=== PATIENT | female | born 1970 ===

== ENCOUNTER 2023-01-21 16:56 | Observation (INO) | payer MEDICARE, MEDICAID, SELFPAY ==
--- NOTE | ~2023-01-21 | CT_ITS ---
EXAMINATION: CT HEAD WITHOUT CONTRAST CLINICAL INFORMATION: Mental status change COMPARISON: CT head 12/08/2012 TECHNIQUE: Contiguous axial imaging was performed from the skull base to vertex without intravenous administration of contrast. This CT examination was performed using dose optimization techniques as appropriate, variously including the following: *Automated exposure control *Adjustment of mA and/or kV according to patient size (this includes techniques or standardized protocols for targeted exams where dose is matched to indication/reason for exam; i.e. extremities or head) *Use of iterative reconstruction technique DLP: 706 mGy-cm FINDINGS: There is scaphocephalic configuration of the skull again seen. Redemonstration of Chiari malformation, as previously detailed. No change in ventricular dimensions is seen, and bilateral COUNCILOR shunts are unchanged in positions. No acute intracranial abnormality. No acute mass, hemorrhage, infarction or extra-axial collection is seen. There are extensive dural calcifications. Mild sinus mucosal thickening in the ethmoid sinuses. Mastoid air cells and middle ear cavities are normally aerated. CT/CT head/brain wo IV con IMPRESSION: No acute intracranial abnormality. Bilateral ventricular shunt catheters are unchanged in positions. No new hydrocephalus.
--- NOTE | ~2023-01-21 | CT_ITS ---
EXAMINATION: CT ABDOMEN AND PELVIS WITHOUT CONTRAST CLINICAL INFORMATION: Large, significantly tender ventral hernia. COMPARISON: None available. TECHNIQUE: Multidetector volumetric imaging was performed from the superior aspect of the liver through the pubic symphysis. Sagittal and coronal reformatted images were obtained on the technologist workstation. This CT examination was performed using dose optimization techniques as appropriate, variously including the following: *Automated exposure control *Adjustment of mA and/or kV according to patient size (this includes techniques or standardized protocols for targeted exams where dose is matched to indication/reason for exam; i.e. extremities or head) *Use of iterative reconstruction technique DLP: 702.79 mGy-cm. FINDINGS: LUNG BASES: The visualized lung bases are unremarkable. LIVER, GALLBLADDER, AND BILIARY TREE: The liver is normal in size, shape, and attenuation. No focal hepatic lesion on noncontrast imaging. No biliary ductal dilatation is present. The gallbladder is surgically absent. No focal collection in the gallbladder fossa. PANCREAS: Unremarkable on noncontrast imaging. SPLEEN: Unremarkable. ADRENAL GLANDS: Unremarkable on noncontrast imaging. KIDNEYS AND URETERS: The kidneys are normal in size, shape, and attenuation. There is a nonobstructing 0.3 cm upper pole right renal calcification with mean attenuation values of 197 Hounsfield units. No hydronephrosis or hydroureter seen. No perinephric stranding. BLADDER: Unremarkable. PELVIC VISCERA: Unremarkable. GASTROINTESTINAL TRACT: The small and large bowel are unremarkable. The appendix is unremarkable. ABDOMINAL WALL: There is a tiny fat-containing umbilical hernia. No significant inflammatory changes are seen in the anterior abdominal wall. Two paramedian abdominal wall catheters are in place extending from the lower chest down into the abdomen with the left-sided catheter entering the anterior abdominal wall at approximately 6 cm above the umbilicus and terminating shortly thereafter in the anterior mid abdomen omental region and the right-sided catheter entering the abdominal wall approximately 11 cm above the umbilicus and extending inferiorly and laterally into the left flank. No inflammatory changes are seen associated with the catheters. No free fluid is noted in the abdomen. LYMPH NODES, VASCULAR: No abdominal or pelvic adenopathy. The abdominal aorta is normal in caliber. No periaortic collections. No significant atherosclerotic calcifications. OSSEOUS STRUCTURES: Mild facet arthropathy in the mid and lower lumbar spine. Minimal vertebral spondylosis in lower thoracic spine and lower lumbar spine. CT/CT abdomen pelvis wo IV con IMPRESSION: 1. No significant inflammatory changes are seen in the anterior abdominal wall. No significant ventral hernia is seen. There is a tiny fat-containing umbilical hernia, which appears unremarkable. 2. Two paramedian abdominal wall catheters are in place as discussed above, extending into the peritoneal cavity. 3. Status post cholecystectomy with no focal collection in the gallbladder fossa. 4. Nonobstructing upper pole right renal calcification.
--- NOTE | 2023-01-21 17:06 | ECG_ITS ---
Test Reason : FALL Blood Pressure : / mmHG Vent. Rate : 083 BPM Atrial Rate : 083 BPM P-R Int : 174 ms QRS Dur : 078 ms QT Int : 372 ms P-R-T Axes : 043 -07 007 degrees QTc Int : 437 ms Normal sinus rhythm Normal ECG When compared with ECG of 05-NOV-2010 10:47, No significant change was found Referred By: Oralia Salgado Electronically Signed By:BETTY ALVAREZ MD
[2023-01-21 17:08] VITALS: BP 127/80; BP 155/90; PULSE 82; PULSE 87; RESP 16; TEMP 36.6; O2SAT 98; BMI 34.4
--- NOTE | 2023-01-21 17:22 | PC.NURSE ---
ED provider to bedside for re-evaluation as pt's caregivers are currently at bedside. Per primary caregiver (new to patient within the last month), the pt has been excessively tired over the past few weeks and also had 3 mini seizures last night.
--- NOTE | 2023-01-21 17:28 | ED.GENADULT ---
HPI - General Adult General Chief complaint: Fall Stated complaint: Psedoseizure Time Seen by Provider: 01/21/23 17:06 Source: patient, family (Caregiver) and EMS Mode of arrival: EMS Limitations: no limitations History of Present Illness HPI narrative: 52-year-old female presented with her caregiver for evaluation after LOC for few seconds. Patient past history significant for mild MR, hydrocephalus with CUPOLA LINER HELPER shunt, seizure/due to seizure patient presented with her caregiver who are new to the patient, no old records in our system hospitals. Patient was at the [employer] patient had seconds of losing consciousness and becoming unresponsive that resolved spontaneously after a few seconds, there was no postictal symptoms noticed after, no SOB, no CP. Patient emergency department is awake, alert, orientedx2, able to answer most of the question according to the caregiver patient at her bases mental status, reportedly patient been feeling confused and disoriented over the past few weeks with worsening of memory over the past 4-6 weeks. Otherwise no headache, no neck stiffness, no CP, no photophobia, no blurry vision, no abdominal pain. Related Data Allergies Allergy/AdvReac Type Severity Reaction Status Date / Time levetiracetam [From KEPPRA] Allergy Unknown UNKNOWN Unverified 06/25/20 17:05 Review of Systems Review of Systems: All other systems are reviewed and are negative Constitutional: Reports as per HPI and Reports no additional constitutional complaints Eyes: Reports as per HPI and Reports no additional eye complaints Reports system reviewed and no additional complaints, except as documented Cardiovascular: Reports as per HPI and Reports no additional cardiovascular complaints Respiratory: Reports as per HPI and Reports no additional respiratory complaints Gastrointestinal: Reports as per HPI and Reports no additional gastrointestinal complaints Genitourinary: Reports no additional female genitourinary complaints Musculoskeletal: Reports no additional musculoskeletal complaints Skin/Breast: Reports system reviewed and no additional complaints, except as docu Psychiatric: Reports no additional psychiatric complaints Endocrine: Reports no additional endocrine complaints Hematologic/Lymphatic: Reports no additional hematologic/lymphatic complaints Allergic/Immunologic: Reports no additional allergic/immunologic complaints Reports system reviewed and no additional complaints, except as documented and Reports Abnormal speech present [facility] Social History Social History Advance Directives: No Advance Directives Information Provided: No Physical Exam ED Vital Signs: Vital Signs - 24 hr 01/21/23 17:08 01/21/23 20:08 Temperature 97.9 F 97.9 F Pulse Rate 87 75 Respiratory Rate 16 18 Blood Pressure 127/80 135/95 H Pulse Oximetry 98 95 Oxygen Delivery Method Room Air Room Air BMI result Body Mass Index 34.4 Vital signs have been reviewed as appeared to be correct. Blood pressure normal. Heart rate normal. Respiration rate normal. Temperature normal. Oxygen saturation normal. Appearance: Alert. Oriented X2 person, place. No acute distress. Head: Normal external exam. Normocephalic. Atraumatic. No Maynard signs noted. No raccoon eyes noted Eyes: PERRLA. EOMI. Conjunctiva and sclera normal. Eyelids normal. ENT: TM's Normal. Pharynx normal. Uvula midline. Moist mucous membranes. No trismus noted. No drooling noted. No muffled voice noted. Neck: Normal inspection. Neck supple. FROM. No adenopathy. Thyroid Normal. No meningeal signs. No neck mass noted. CVS: Normal heart rate and rhythm. Heart sound normal. No murmurs noted. Pulses normal throughout. Respiratory: No respiratory distress. Painless inspiration. Breath sounds normal. No wheezes/rales/rhonchi noted. Chest nontender. No accessory muscle usage noted or decreased air movement noted. Abdomen: Soft and nontender. Bowel sounds normal in all 4 quadrants. No distention noted. No organomegaly noted. No visible injury noted. Back: No CVA tenderness. Full range of motion noted. Skin: Skin warm and dry. Normal skin color. Normal skin turgor. No rashes/lesions/lacerations noted. Extremities: No lower extremity edema. Extremities exhibit normal range of motion. Extremities nontender. Neuro: Cranial nerve exam: II-XII are grossly intact No motor deficit. No sensory deficit. Reflexes normal. Course Course Course Narrative: Syncopal episode at 52-year-old female will admit for cardiac monitoring. Medical Decision Making Differential Diagnosis Differential Diagnoses: The differential diagnosis associated with the presentation includes (Syncope, seizure, dysrhythmia, worsening of hydrocephalus.) Lab Data MDM Lab Attestation statement: I reviewed the patient's lab results. 01/21/23 18:01 01/21/23 18:01 Labs: Lab Results 01/21/23 01/21/23 01/21/23 Range/Units 17:58 18:01 18:01 WBC 7.9 (4.8-10.8) X10*3/uL RBC 4.23 (4.20-5.50) X10*6/uL Hgb 13.0 (12.0-16.0) g/dl Hct 40.5 (37.0-47.0) % MCV 95.7 (80.0-98.0) fL MCH 30.7 (27.0-33.0) pg MCHC 32.1 (31.0-35.0) g/dl RDW 13.5 (11.0-16.0) % Plt Count 220 (160-400) X10*3/uL MPV 9.5 (9.4-12.3) fL Immature Gran % (Auto) 1.3 H (0.0-0.4) % Neut % (Auto) 52.4 (45-73) % Lymph % (Auto) 32.0 (20-40) % [place] % (Auto) 6.4 (2-11) % Eos % (Auto) 6.9 H (0-4) % Baso % (Auto) 1.0 (0-2) % Lymph # (Auto) 2.5 (1.2-4.9) X10*3/uL [place] # (Auto) 0.5 (0.1-1.2) X10*3/uL Eos # (Auto) 0.6 H (0.0-0.4) X10*3/uL Baso # (Auto) 0.1 (0.0-0.2) X10*3/uL Abs Immat Gran (auto) 0.10 H (0.00-0.03) X10*3/uL Absolute Neuts (auto) 4.2 (2.0-8.3) x10*3/uL Absolute Nucleated RBC 0.000 (0.0-0.012) X10*3/uL Nucleated RBC % (auto) 0.0 (0.0-0.2) /100WBC Sodium 140 (135-145) mmol/L Potassium 3.8 (3.3-5.1) mmol/L Chloride 106 (96-108) mmol/L Carbon Dioxide 26 (22-29) mmol/L Anion Gap 12 (12-20) BUN 14 (9-16) mg/dL Creatinine 0.87 (0.5-1.4) mg/dL Estim Creat Clear Calc 78.5 Estimated GFR > 60 Random Glucose 117 H (60-115) mg/dL Calcium 9.3 (8.4-10.2) mg/dL Total Bilirubin 0.2 (0.0-1.0) mg/dL Direct Bilirubin < 0.2 (0.0-0.5) mg/dL AST 11 (5-31) U/L ALT 14 (0-31) U/L Alkaline Phosphatase 106 (39-117) U/L Troponin I High Sens (<3.5-17.0) ng/L Total Protein 6.9 (6.5-8.0) g/dL Albumin 3.9 (3.5-5.0) g/dL Lipase 22 (8-78) U/L Urine Color Yellow Urine Appearance Clear Urine pH 6.0 (5.0-9.0) Ur Specific [place] <= 1.005 (1.005-1.025) Urine Protein Negative (Neg-Trace) mg/dL Urine Glucose (UA) Negative (Negative) mg/dL Urine Ketones Negative (Negative) mg/dL Urine Blood Negative (Negative) Urine Nitrite Negative (Negative) Ur Leukocyte Esterase Negative (Negative) 01/21/23 Range/Units 18:01 WBC (4.8-10.8) X10*3/uL RBC (4.20-5.50) X10*6/uL Hgb (12.0-16.0) g/dl Hct (37.0-47.0) % MCV (80.0-98.0) fL MCH (27.0-33.0) pg MCHC (31.0-35.0) g/dl RDW (11.0-16.0) % Plt Count (160-400) X10*3/uL MPV (9.4-12.3) fL Immature Gran % (Auto) (0.0-0.4) % Neut % (Auto) (45-73) % Lymph % (Auto) (20-40) % [place] % (Auto) (2-11) % Eos % (Auto) (0-4) % Baso % (Auto) (0-2) % Lymph # (Auto) (1.2-4.9) X10*3/uL [place] # (Auto) (0.1-1.2) X10*3/uL Eos # (Auto) (0.0-0.4) X10*3/uL Baso # (Auto) (0.0-0.2) X10*3/uL Abs Immat Gran (auto) (0.00-0.03) X10*3/uL Absolute Neuts (auto) (2.0-8.3) x10*3/uL Absolute Nucleated RBC (0.0-0.012) X10*3/uL Nucleated RBC % (auto) (0.0-0.2) /100WBC Sodium (135-145) mmol/L Potassium (3.3-5.1) mmol/L Chloride (96-108) mmol/L Carbon Dioxide (22-29) mmol/L Anion Gap (12-20) BUN (9-16) mg/dL Creatinine (0.5-1.4) mg/dL Estim Creat Clear Calc Estimated GFR Random Glucose (60-115) mg/dL Calcium (8.4-10.2) mg/dL Total Bilirubin (0.0-1.0) mg/dL Direct Bilirubin (0.0-0.5) mg/dL AST (5-31) U/L ALT (0-31) U/L Alkaline Phosphatase (39-117) U/L Troponin I High Sens 4.2 (<3.5-17.0) ng/L Total Protein (6.5-8.0) g/dL Albumin (3.5-5.0) g/dL Lipase (8-78) U/L Urine Color Urine Appearance Urine pH (5.0-9.0) Ur Specific [place] (1.005-1.025) Urine Protein (Neg-Trace) mg/dL Urine Glucose (UA) (Negative) mg/dL Urine Ketones (Negative) mg/dL Urine Blood (Negative) Urine Nitrite (Negative) Ur Leukocyte Esterase (Negative) Independent Interpretation I performed an independent interpretation of an: EKG (Normal sinus rhythm at 83 beats per minute, left axis deviation, normal intervals, no ST-T changes.) and CT Scan (Head CT: No acute intracranial pathology.) Radiology Impression Discussion of test interpretation with radiology: I have reviewed the radiologist's reading. Discharge Plan Discharge Clinical Impression: Syncope Patient Disposition: Admitted As Inpatient
[2023-01-21 18:06] LABS: MANUAL DIFF FLAG NO
[2023-01-21 18:08] LABS: Appearance Urine Clear; Color Urine Yellow; Glucose Urine UA Negative (Negative); Leukocyte Esterase Urine Negative (Negative); Nitrite Urine Negative (Negative); Specific Gravity - Urine <= 1.005 (1.005-1.025); Urine Blood Negative (Negative); Urine Ketones Negative (Negative); Urine Protein Negative (Neg-Trace)
[2023-01-21 18:23] LABS: Alanine Aminotransferase 14 U/L (0-31); Albumin Level 3.9 g/dL (3.5-5.0); Alkaline Phosphatase 106 U/L (39-117); Anion Gap 12 (12-20); Aspartate Amino Transferase 11 U/L (5-31); Bilirubin Direct < 0.2 mg/dL (0.0-0.5); Bilirubin Total 0.2 mg/dL (0.0-1.0); Blood Urea Nitrogen 14 mg/dL (9-16); Calcium 9.3 mg/dL (8.4-10.2); Carbon Dioxide 26 mmol/L (22-29); Chloride 106 mmol/L (96-108); Creatinine Clr Calc Pharmacy 78.5; Estimated Glomerular Filt Rate > 60; Glucose Random 117 mg/dL (60-115); Lipase 22 U/L (8-78); Potassium 3.8 mmol/L (3.3-5.1); Sodium 140 mmol/L (135-145); Total Protein 6.9 g/dL (6.5-8.0)
[2023-01-21 18:27] LABS: Basophils Absolute Auto 0.1 X10*3/uL (0.0-0.2); Eosinophils Absolute Auto 0.6 X10*3/uL (0.0-0.4); Eosinophils Percent Auto 6.9 % (0-4); Hematocrit 40.5 % (37.0-47.0); Imm Gran Pct Auto 1.3 % (0.0-0.4); Lymphocytes Absolute Auto 2.5 X10*3/uL (1.2-4.9); Mean Corpuscular HGB Conc 32.1 g/dl (31.0-35.0); Mean Corpuscular Hemoglobin 30.7 pg (27.0-33.0); Mean Corpuscular Volume 95.7 fL (80.0-98.0); Mean Platelet Volume 9.5 fL (9.4-12.3); Monocytes Absolute Auto 0.5 X10*3/uL (0.1-1.2); Monocytes Percent Auto 6.4 % (2-11); Neutrophils Absolute Auto 4.2 x10*3/uL (2.0-8.3); Neutrophils Percent Auto 52.4 % (45-73); Platelet Count 220 X10*3/uL (160-400); Red Blood Count 4.23 X10*6/uL (4.20-5.50); Red Cell Distribution Width 13.5 % (11.0-16.0); White Blood Count 7.9 X10*3/uL (4.8-10.8)
[2023-01-21 18:31] LABS: Troponin-I High Sensitivity 4.2 ng/L (<3.5-17.0)
--- NOTE | 2023-01-21 18:56 | PC.NURSE ---
Patients new caregivers called stating she's having a seizure. Responded to painful stimuli woke right up. Caregivers are still uncertain.
[2023-01-21 20:08] VITALS: BP 135/95; PULSE 75; RESP 18; TEMP 36.6; O2SAT 95
--- NOTE | 2023-01-21 20:09 | MHC.EDTECH ---
This Tech assumed care of patient at 1900,vitals obtained patient resting at this time.Call mariscal in reach
--- NOTE | 2023-01-21 21:09 | P.HPHOSP_ITS ---
History of Present Illness Date of Service: 01/21/23 Attending physician on admission: Thomas Zeng Chief Complaint: syncope 52-year-old female with history of hydrocephalus with bilateral STRIP STAMP STRAIGHTENER shunts, unspecified psychosis, depression / anxiety, conversion disorder /psychogenic nonepileptic pseudoseizures \, developmental delay,mild persistent asthma, and chronic constipation presents to the ED via EMS accompanied by her family /caregivers for evaluation of a syncopal episode that [place] [employer] [place] this [place]. The patient had an episode of loss of consciousness that resolved spontaneously after several seconds without any postictal symptoms reported by family. However the patient does state that she feels somewhat lightheaded with that she has been experiencing lightheadedness for several weeks along with brain fog and fatigue. On exam, she is alert and oriented x3. She reports compliance with all of her medications. On arrival, vital signs stable. Hematology studies unremarkable. Renal function and electrolyte levels within normal limits. TSH pending. Urinalysis unremarkable. Head CT is negative for any acute intracranial Abnormality. EKG shows NSR, rate [address] /T-wave abnormality. No arrhythmia noted on equipment monitor phototypesetting. The patient states that she has been experiencing increased frequency of seizure activity. No prior records are available for review in our system, but prior records from [facility] have been reviewed. Review of Systems Review of Systems: Yes all other systems are reviewed and are negative [facility] Medical History (Updated 01/21/23 @ 21:15 by HIRAM Ellington) Chronic constipation Conversion disorder Depression with anxiety Mild persistent asthma Obesity Overactive bladder Psychogenic nonepileptic seizure Unspecified psychosis Social History (Updated 01/21/23 @ 21:15 by HIRAM Ellington) Alcohol intake: never Patient Tobacco Use Status: Never used Tobacco Use of substances other than those prescribed or required for medical reasons: No Advance Directives: No Advance Directives Information Provided: No Meds Allergies Allergy/AdvReac Type Severity Reaction Status Date / Time levetiracetam [From KEPPRA] Allergy Unknown UNKNOWN Unverified 06/25/20 17:05 Physical Exam Vital Signs and Narrative: Vital Signs: Last Vital Signs Temp 97.9 F 01/21/23 20:08 Pulse 75 01/21/23 20:08 Resp 18 01/21/23 20:08 BP 135/95 H 01/21/23 20:08 Pulse Ox 95 01/21/23 20:08 O2 Del Method Room Air 01/21/23 20:08 BMI result Body Mass Index 34.4 Constitutional - Awake and Alert, No apparent distress Eyes - PERRLA, EOMI Cardiovascular - S1S2, RRR, No edema Respiratory - Normal lung expansion, Normal respiratory effort, No respiratory distress, CTA bilaterally Gastrointestinal - Moderate sized reducible ventral hernia. NT / ND; +BS; No rebound or guarding Extremities - no calf tenderness bilaterally, no swelling Skin - Warm/Dry Neurological - Alert & oriented x3, CN II-XII in tact, 5/5 strength BUE and BLE Psychological - Appropriate affect Results Labs 01/21/23 18:01 01/21/23 18:01 Labs: Laboratory Results - last 24 hr 01/21/23 01/21/23 01/21/23 17:58 18:01 18:01 MCV 95.7 MCH 30.7 MCHC 32.1 RDW 13.5 Plt Count 220 MPV 9.5 Immature Gran % (Auto) 1.3 H Neut % (Auto) 52.4 Lymph % (Auto) 32.0 [place] % (Auto) 6.4 Eos % (Auto) 6.9 H Baso % (Auto) 1.0 Lymph # (Auto) 2.5 [place] # (Auto) 0.5 Eos # (Auto) 0.6 H Baso # (Auto) 0.1 Abs Immat Gran (auto) 0.10 H Absolute Neuts (auto) 4.2 Absolute Nucleated RBC 0.000 Nucleated RBC % (auto) 0.0 Anion Gap 12 Estim Creat Clear Calc 78.5 Estimated GFR > 60 Random Glucose 117 H Calcium 9.3 Total Bilirubin 0.2 Direct Bilirubin < 0.2 AST 11 ALT 14 Alkaline Phosphatase 106 Troponin I High Sens Total Protein 6.9 Albumin 3.9 Lipase 22 Urine Color Yellow Urine Appearance Clear Urine pH 6.0 Ur Specific [place] <= 1.005 Urine Protein Negative Urine Glucose (UA) Negative Urine Ketones Negative Urine Blood Negative Urine Nitrite Negative Ur Leukocyte Esterase Negative 01/21/23 18:01 MCV MCH MCHC RDW Plt Count MPV Immature Gran % (Auto) Neut % (Auto) Lymph % (Auto) [place] % (Auto) Eos % (Auto) Baso % (Auto) Lymph # (Auto) [place] # (Auto) Eos # (Auto) Baso # (Auto) Abs Immat Gran (auto) Absolute Neuts (auto) Absolute Nucleated RBC Nucleated RBC % (auto) Anion Gap Estim Creat Clear Calc Estimated GFR Random Glucose Calcium Total Bilirubin Direct Bilirubin AST ALT Alkaline Phosphatase Troponin I High Sens 4.2 Total Protein Albumin Lipase Urine Color Urine Appearance Urine pH Ur Specific [place] Urine Protein Urine Glucose (UA) Urine Ketones Urine Blood Urine Nitrite Ur Leukocyte Esterase Imaging Radiologist's Impressions: Impressions Head CT 01/21/23 19:14 IMPRESSION: No acute intracranial abnormality. Bilateral ventricular shunt catheters are unchanged in positions. No new hydrocephalus. Assessment and Plan (1) Syncope: Status: Acute Plan 52-year-old female with history of hydrocephalus with bilateral STRIP STAMP STRAIGHTENER shunts, unspecified psychosis, depression / anxiety, conversion disorder /psychogenic nonepileptic pseudoseizures \, developmental delay,mild persistent asthma, and chronic constipation to be observed for syncopal episode. # Syncopal episode -suspect related to psychogenic nonepileptic seizure. However, cannot rule out epileptic seizure at this time. EEG ordered -Orthostatic vitals ordered -EKG normal. no arrhythmia noted on telemetry - electrolyte levels normal. TSH pending - head CTs without any acute intracranial abnormality - continue home psychiatric medications - continue seizure precautions - appreciate neurology input - monitor on telemetry # depression/anxiety / unspecified psychosis/conversion disorder - continue home meds # mild persistent asthma-no acute exacerbation - continue maintenance medications, albuterol p.r.n. DVT prophylaxis-Lovenox full code Time Spent With Patient Time: Total time managing care of this patient today ____ minutes. Quality Stroke Does the patient have a stroke diagnosis?: No VTE Prior VTE?: No VTE Risk Level:: Medical - moderate - high VTE Device Contraindication: Treatment Not Indicated VTE Drug Contraindication: N/A - Med Ordered
[2023-01-21 21:16] VITALS: BP 122/71; PULSE 77
--- NOTE | 2023-01-21 21:25 | MHC.EDTECH ---
Patient ambulated with a steady gait with one assist to the bathroom.
[2023-01-21 21:30] VITALS: BP 131/77; PULSE 83
[2023-01-21 21:34] VITALS: BP 122/77; BP 131/77; PULSE 82; PULSE 83; RESP 18; TEMP 36.4; O2SAT 96
[2023-01-21 21:58] LABS: TSH reflex Free T4 0.96 uIU/mL (0.32-4.0)
[2023-01-21] MEDS: Enoxaparin Sodium 40 MG/0.4 ML SYRINGE SUBCUT (22:25)
--- NOTE | 2023-01-21 23:17 | PC.NURSE ---
called for report @ 11:15pm. Waiting for callback from Nurse
[2023-01-21] MEDS: QUEtiapine Fumarate 100 MG TABLET 300 MG PO (23:51)
[2023-01-21] MEDS: traZODone HCL 50 MG TABLET PO (23:51)
[2023-01-21] MEDS: Melatonin 3 MG TABLET PO (23:51)
--- NOTE | 2023-01-21 23:54 | PC.NURSE ---
Report given to [facility] RN via phone. IV access flushed, no signs of infiltation, no pain, no pain. Pt medicated per MAR with medications available in the ED. Pt transported to room 470-1 accompanied by tech. Pt does not have any new complaints or concerns.
[2023-01-22] VITALS (7 sets, daily range): BP systolic 112–143; BP diastolic 68–87; PULSE 76–85; RESP 16–20; TEMP 36.1–36.7; O2SAT 92–98; BMI 34.2
[2023-01-22] MEDS: 0.9 % Sodium Chloride Flush 3 ML SYRINGE IVFLUSH ×3 (00:38→20:21)
[2023-01-22 06:48] LABS: MANUAL DIFF FLAG NO
[2023-01-22 06:54] LABS: Basophils Absolute Auto 0.1 X10*3/uL (0.0-0.2); Basophils Percent Auto 0.8 % (0-2); Eosinophils Absolute Auto 0.6 X10*3/uL (0.0-0.4); Eosinophils Percent Auto 8.3 % (0-4); Hematocrit 39.3 % (37.0-47.0); Hemoglobin 12.6 g/dl (12.0-16.0); Imm Gran Abs Auto 0.04 X10*3/uL (0.00-0.03); Imm Gran Pct Auto 0.6 % (0.0-0.4); Lymphocytes Absolute Auto 2.7 X10*3/uL (1.2-4.9); Lymphocytes Percent Auto 37.5 % (20-40); Mean Corpuscular HGB Conc 32.1 g/dl (31.0-35.0); Mean Corpuscular Hemoglobin 30.8 pg (27.0-33.0); Mean Corpuscular Volume 96.1 fL (80.0-98.0); Mean Platelet Volume 9.5 fL (9.4-12.3); Monocytes Absolute Auto 0.5 X10*3/uL (0.1-1.2); Monocytes Percent Auto 7.5 % (2-11); Neutrophils Absolute Auto 3.3 x10*3/uL (2.0-8.3); Neutrophils Percent Auto 45.3 % (45-73); Platelet Count 218 X10*3/uL (160-400); Red Blood Count 4.09 X10*6/uL (4.20-5.50); Red Cell Distribution Width 13.6 % (11.0-16.0); White Blood Count 7.2 X10*3/uL (4.8-10.8)
[2023-01-22 07:02] LABS: Anion Gap 13 (12-20); Blood Urea Nitrogen 13 mg/dL (9-16); Carbon Dioxide 27 mmol/L (22-29); Chloride 107 mmol/L (96-108); Estimated Glomerular Filt Rate > 60; Glucose Random 99 mg/dL (60-115); Potassium 4.5 mmol/L (3.3-5.1); Sodium 142 mmol/L (135-145)
--- NOTE | 2023-01-22 09:16 | PHA.MEDREC ---
Pharmacy Consult ? Medication Reconciliation Pharmacy has completed the medication reconciliation. spoke with patients daughter who also helps take care of her medications. She had a list with her from a facility. The list does say to take 300mg at bedtime for her quetiapine, however, her pharmacy claims and the medication book her daughter keeps says 100mg BID and 50mg BID (one in am and one in pm) for a TDD of 300mg.
[2023-01-22] MEDS: Tolterodine Tartrate LA 4 MG CAP.ER.24H PO (10:16)
[2023-01-22] MEDS: Escitalopram Oxalate 5 MG TABLET 15 MG PO (10:16)
[2023-01-22] MEDS: Acetaminophen 325 MG TABLET 650 MG PO (10:16)
[2023-01-22] MEDS: lamoTRIgine 100 MG TABLET PO ×2 (10:16→20:21)
[2023-01-22] MEDS: lamoTRIgine 25 MG TABLET 150 MG PO ×2 (10:17→20:20)
--- NOTE | 2023-01-22 10:26 | PM.NEUROCN ---
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 nonepileptic? pseudoseizures \,? developmental delay,mild persistent asthma, and chronic constipation presented with an episode of passing [place]. She has complained of lightheadedness before that. Apparently she passed out for few seconds. Her manager product marketing reported that she used to see Dr. Monteiro at [facility] but has not seen him for more than 5 years and they were trying to get another appointment. I had noticed that she has been taking lamotrigine 100 mg twice a day, which might have been given for behavioral/ seizure type of pathology. Review of Systems Review of Systems: No recent cold or flu-like illness PMFSH Past Medical History Medical History (Updated 01/22/23 @ 10:30 by Talia Howard MD) Chronic constipation Conversion disorder Depression with anxiety Mild persistent asthma Obesity Overactive bladder Psychogenic nonepileptic seizure Unspecified psychosis Social History Social History (Updated 01/21/23 @ 21:15 by HIRAM Ellington) Alcohol intake: never Patient Tobacco Use Status: Never used Tobacco Meds Allergies Allergy/AdvReac Type Severity Reaction Status Date / Time levetiracetam [From [facility]] Allergy Unknown UNKNOWN Verified 01/21/23 23:50 Active Medications: Current Medications Acetaminophen (Acetaminophen 325 Mg Tablet) 650 mg PO Q6H PRN PRN Reason: Pain, Mild (Pain Scale 1-3) Last Admin: 01/22/23 10:16 Dose: 650 mg Albuterol Sulfate (Albuterol Sulfate 90 Mcg 8 Gm Inhaler) 2 puff INHALE Q4H PRN PRN Reason: Shortness of Breath/Wheezing Clonazepam (Clonazepam 0.5 Mg Tablet) 0.25 mg PO BID PRN PRN Reason: anxiety Docusate Sodium (Docusate Sodium 100 Mg Capsule) 100 mg PO DAILY PRN PRN Reason: Constipation Enoxaparin Sodium (Enoxaparin Sodium 40 Mg/0.4 Ml Syringe) 40 mg SUBCUT Q24H [facility] Last Admin: 01/21/23 22:25 Dose: 40 mg Escitalopram Oxalate (Escitalopram Oxalate 5 Mg Tablet) 15 mg PO DAILY [facility] Last Admin: 01/22/23 10:16 Dose: 15 mg Lamotrigine (Lamotrigine 100 Mg Tablet) 100 mg PO BID [facility] Last Admin: 01/22/23 10:16 Dose: 100 mg Lamotrigine (Lamotrigine 25 Mg Tablet) 150 mg PO BID [facility] Last Admin: 01/22/23 10:17 Dose: 150 mg Melatonin (Melatonin 3 Mg Tablet) 3 mg PO BEDTIME [facility] Last Admin: 01/21/23 23:51 Dose: 3 mg Ondansetron HCl (Ondansetron Hcl 4 Mg/2 Ml Vial) 4 mg IVPUSH Q8H PRN PRN Reason: Nausea and Vomiting Quetiapine Fumarate (Quetiapine Fumarate 100 Mg Tablet) 300 mg PO BEDTIME [facility] Last Admin: 01/21/23 23:51 Dose: 300 mg Sodium Chloride (0.9 % Sodium Chloride Flush 3 Ml Syringe) 3 ml IVFLUSH QSHIFT [facility] Last Admin: 01/22/23 10:17 Dose: 3 ml Tolterodine Tartrate (Tolterodine Tartrate La 4 Mg Cap.Er.24h) 4 mg PO DAILY [facility] Last Admin: 01/22/23 10:16 Dose: 4 mg Trazodone HCl (Trazodone Hcl 50 Mg Tablet) 50 mg PO BEDTIME [facility] Last Admin: 01/21/23 23:51 Dose: 50 mg Home Medications Medication Instructions Recorded Confirmed Last Taken Type citalopram 10 mg tablet 10 mg PO DAILY 01/21/23 01/21/23 Unknown History citalopram 20 mg tablet 20 mg PO DAILY 01/21/23 01/21/23 Unknown History clonazepam 0.5 mg tablet (Klonopin) 0.25 mg PO DAILY PRN Agitation 01/21/23 01/22/23 Unknown History lamotrigine 100 mg tablet 100 mg PO BID 01/21/23 01/21/23 Unknown History lamotrigine 150 mg tablet 150 mg PO BID 01/21/23 01/21/23 Unknown History melatonin 3 mg tablet 3 mg PO BEDTIME 01/21/23 01/21/23 Unknown History quetiapine 100 mg tablet 100 mg PO BID 01/21/23 01/22/23 Unknown History quetiapine 50 mg tablet 50 mg PO BID 01/21/23 01/22/23 Unknown History solifenacin 10 mg tablet 10 mg PO DAILY 01/21/23 01/21/23 Unknown History trazodone 50 mg tablet 25 mg PO BEDTIME PRN Insomnia 01/21/23 01/22/23 Unknown History acetaminophen 325 mg tablet 325 mg PO Q4H PRN Pain 01/22/23 01/22/23 Unknown History albuterol sulfate 2.5 mg/3 mL 2.5 mg inhalation BID PRN 01/22/23 01/22/23 Unknown History (0.083 %) solution for nebulization Shortness Of Breath Or Wheezing albuterol sulfate 90 mcg/actuation 2 puff inhalation Q6H PRN 01/22/23 01/22/23 Unknown History aerosol inhaler Shortness Of Breath Or Wheezing budesonide 0.5 mg/2 mL suspension 0.5 mg inhalation BID 01/22/23 01/22/23 Unknown History for nebulization cholecalciferol (vitamin D3) 50 50 mcg PO QAM 01/22/23 01/22/23 Unknown History mcg (2,000 unit) tablet (Vitamin D3) docusate sodium 100 mg tablet 500 mg PO QAM 01/22/23 01/22/23 Unknown History ferrous gluconate 324 mg (37.5 mg 324 mg PO DAILY 01/22/23 01/22/23 Unknown History iron) tablet fexofenadine 60 mg tablet 60 mg PO Q12H PRN Allergy Symptoms 01/22/23 01/22/23 Unknown History fiber 1 tab PO BID 01/22/23 01/22/23 Unknown History multivitamin (Daily-Saira tablet) 1 tab PO QAM 01/22/23 01/22/23 Unknown History polyethylene glycol 3350 17 17 g PO DAILY PRN Constipation 01/22/23 01/22/23 Unknown History gram/dose oral powder (Miralax) Physical Exam Vital Signs: Vital Signs: Last Vital Signs Temp 97.5 F 01/22/23 07:24 Pulse 77 01/22/23 07:24 Resp 18 01/22/23 07:24 BP 112/68 01/22/23 07:24 Pulse Ox 92 01/22/23 07:24 O2 Del Method Room Air 01/22/23 07:24 BMI result Body Mass Index 34.2 Neuro: Other: alert and awake with normal spontaneity of speech fluency comprehension and flat to wague affect. Visual owusu are full. Face was symmetrical. There was no obvious arm or leg weakness. Speech was normal. Results Labs 01/22/23 06:37 01/22/23 06:37 Labs: Short CBC 01/21/23 01/22/23 Range/Units 18:01 06:37 WBC 7.9 7.2 (4.8-10.8) X10*3/uL Hgb 13.0 12.6 (12.0-16.0) g/dl Hct 40.5 39.3 (37.0-47.0) % Plt Count 220 218 (160-400) X10*3/uL BMP 01/21/23 01/22/23 18:01 06:37 Sodium 140 142 Potassium 3.8 4.5 Chloride 106 107 Carbon Dioxide 26 27 BUN 14 13 Creatinine 0.87 0.86 Calcium 9.3 9.0 Liver Function 01/21/23 Range/Units 18:01 Total Bilirubin 0.2 (0.0-1.0) mg/dL Direct Bilirubin < 0.2 (0.0-0.5) mg/dL AST 11 (5-31) U/L ALT 14 (0-31) U/L Alkaline Phosphatase 106 (39-117) U/L Albumin 3.9 (3.5-5.0) g/dL Urine 01/21/23 Range/Units 17:58 Urine Color Yellow Urine Appearance Clear Urine pH 6.0 (5.0-9.0) Ur Specific [place] <= 1.005 (1.005-1.025) Urine Protein Negative (Neg-Trace) mg/dL Urine Glucose (UA) Negative (Negative) mg/dL Noncontrast head CT revealed evidence of previous bilateral craniotomies and extensive bilateral parietal encephalomalacia and atrophy. Assessment and Plan (1) Chronic static encephalopathy: Status: Acute (2) Seizure disorder: Status: Acute 52 years old woman with underlying chronic static encephalopathy with imaging evidence of bilateral craniotomy encephalomalacia and atrophy. Exact etiology might be either remote trauma or congenital condition. she was at relatively high risk for epileptic seizure disorder. She is taking relatively good dose of lamotrigine, which is medicine for the type of seizures she might had, i.e., complex partial seizure. I recommend checking a lamotrigine level. Otherwise she should follow-up with a neurologist for further instructions and take her medicines on a regular basis. 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 Procedures Date of Service Date of Service: 01/22/23
--- NOTE | 2023-01-22 11:13 | P.PNIM_ITS ---
Subjective Subjective Date of Service: 01/22/23 Interval History: Seen in follow up for syncopal episode, seizure Interval history: no recurrent syncope or seizure activity. Reports significant pain of large ventral hernia. Reports constipation, but no acute change in bowel habits. VSS Review of Systems Review of Systems: Yes all other systems are reviewed and are negative Physical Exam Vital Signs: Vital Signs: Last Vital Signs Temp 97.5 F 01/22/23 07:24 Pulse 77 01/22/23 07:24 Resp 18 01/22/23 07:24 BP 112/68 01/22/23 07:24 Pulse Ox 92 01/22/23 07:24 O2 Del Method Room Air 01/22/23 07:24 BMI result Body Mass Index 34.2 Constitutional - Awake and Alert, No apparent distress Eyes - PERRLA, EOMI Cardiovascular - S1S2, RRR, No edema Respiratory - Normal lung expansion, Normal respiratory effort, No respiratory distress, CTA bilaterally Gastrointestinal - Large reducible ventral hernia RUQ with tenderness to palpation. No overlying erythema or gangrene. ND; +BS; No rebound or guarding Extremities - no calf tenderness bilaterally, no swelling Skin - Warm/Dry Neurological - Alert & oriented x3 Psychological - Appropriate affect Objective Data Active Medications Acetaminophen (Acetaminophen 325 Mg Tablet) 650 mg PO Q6H PRN PRN Reason: Pain, Mild (Pain Scale 1-3) Last Admin: 01/22/23 10:16 Dose: 650 mg Documented By: MEHDI Albuterol Sulfate (Albuterol Sulfate 90 Mcg 8 Gm Inhaler) 2 puff INHALE Q4H PRN PRN Reason: Shortness of Breath/Wheezing Clonazepam (Clonazepam 0.5 Mg Tablet) 0.25 mg PO BID PRN PRN Reason: anxiety Docusate Sodium (Docusate Sodium 100 Mg Capsule) 100 mg PO DAILY PRN PRN Reason: Constipation Enoxaparin Sodium (Enoxaparin Sodium 40 Mg/0.4 Ml Syringe) 40 mg SUBCUT Q24H [facility] Last Admin: 01/21/23 22:25 Dose: 40 mg Documented By: VIOLA Escitalopram Oxalate (Escitalopram Oxalate 5 Mg Tablet) 15 mg PO DAILY [facility] Last Admin: 01/22/23 10:16 Dose: 15 mg Documented By: MEHDI Lamotrigine (Lamotrigine 100 Mg Tablet) 100 mg PO BID [facility] Last Admin: 01/22/23 10:16 Dose: 100 mg Documented By: MEHDI Lamotrigine (Lamotrigine 25 Mg Tablet) 150 mg PO BID [facility] Last Admin: 01/22/23 10:17 Dose: 150 mg Documented By: MEHDI Melatonin (Melatonin 3 Mg Tablet) 3 mg PO BEDTIME [facility] Last Admin: 01/21/23 23:51 Dose: 3 mg Documented By: PABLO Ondansetron HCl (Ondansetron Hcl 4 Mg/2 Ml Vial) 4 mg IVPUSH Q8H PRN PRN Reason: Nausea and Vomiting Quetiapine Fumarate (Quetiapine Fumarate 100 Mg Tablet) 300 mg PO BEDTIME [facility] Last Admin: 01/21/23 23:51 Dose: 300 mg Documented By: PABLO Sodium Chloride (0.9 % Sodium Chloride Flush 3 Ml Syringe) 3 ml IVFLUSH QSHIFT [facility] Last Admin: 01/22/23 10:17 Dose: 3 ml Documented By: MEHDI Tolterodine Tartrate (Tolterodine Tartrate La 4 Mg Cap.Er.24h) 4 mg PO DAILY [facility] Last Admin: 01/22/23 10:16 Dose: 4 mg Documented By: MEHDI Trazodone HCl (Trazodone Hcl 50 Mg Tablet) 50 mg PO BEDTIME [facility] Last Admin: 01/21/23 23:51 Dose: 50 mg Documented By: PABLO Labs 01/22/23 06:37 01/22/23 06:37 Labs: Laboratory Results - last 24 hr 01/21/23 01/21/23 01/21/23 17:58 18:01 18:01 MCV 95.7 MCH 30.7 MCHC 32.1 RDW 13.5 Plt Count 220 MPV 9.5 Immature Gran % (Auto) 1.3 H Neut % (Auto) 52.4 Lymph % (Auto) 32.0 [place] % (Auto) 6.4 Eos % (Auto) 6.9 H Baso % (Auto) 1.0 Lymph # (Auto) 2.5 [place] # (Auto) 0.5 Eos # (Auto) 0.6 H Baso # (Auto) 0.1 Abs Immat Gran (auto) 0.10 H Absolute Neuts (auto) 4.2 Absolute Nucleated RBC 0.000 Nucleated RBC % (auto) 0.0 Anion Gap 12 Estim Creat Clear Calc 78.5 Estimated GFR > 60 Random Glucose 117 H Calcium 9.3 Total Bilirubin 0.2 Direct Bilirubin < 0.2 AST 11 ALT 14 Alkaline Phosphatase 106 Troponin I High Sens Total Protein 6.9 Albumin 3.9 Lipase 22 TSH 0.96 Urine Color Yellow Urine Appearance Clear Urine pH 6.0 Ur Specific [place] <= 1.005 Urine Protein Negative Urine Glucose (UA) Negative Urine Ketones Negative Urine Blood Negative Urine Nitrite Negative Ur Leukocyte Esterase Negative 01/21/23 01/22/23 01/22/23 18:01 06:37 06:37 MCV 96.1 MCH 30.8 MCHC 32.1 RDW 13.6 Plt Count 218 MPV 9.5 Immature Gran % (Auto) 0.6 H Neut % (Auto) 45.3 Lymph % (Auto) 37.5 [place] % (Auto) 7.5 Eos % (Auto) 8.3 H Baso % (Auto) 0.8 Lymph # (Auto) 2.7 [place] # (Auto) 0.5 Eos # (Auto) 0.6 H Baso # (Auto) 0.1 Abs Immat Gran (auto) 0.04 H Absolute Neuts (auto) 3.3 Absolute Nucleated RBC 0.000 Nucleated RBC % (auto) 0.0 Anion Gap 13 Estim Creat Clear Calc 79.0 Estimated GFR > 60 Random Glucose 99 Calcium 9.0 Total Bilirubin Direct Bilirubin AST ALT Alkaline Phosphatase Troponin I High Sens 4.2 Total Protein Albumin Lipase TSH Urine Color Urine Appearance Urine pH Ur Specific [place] Urine Protein Urine Glucose (UA) Urine Ketones Urine Blood Urine Nitrite Ur Leukocyte Esterase Assessment and Plan (1) Chronic static encephalopathy: Status: Acute (2) Syncope: Status: Acute Plan 52-year-old female with history of 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 nonepileptic? pseudoseizures \,? developmental delay,mild persistent asthma, and chronic constipation to? be observed for syncopal episode. #?Syncopal episode -suspect related to? psychogenic nonepileptic seizure. However, cannot rule out epileptic seizure at this time. EEG ordered -Orthostatic vitals normal -EKG normal.? no arrhythmia noted on telemetry - electrolyte levels normal.? TSH pending - head CTs without? any acute intracranial abnormality - continue home psychiatric medications - continue seizure precautions - appreciate neurology input - monitor on telemetry # depression/anxiety / unspecified psychosis/conversion disorder - continue home meds # mild persistent asthma-no acute exacerbation - continue maintenance medications, albuterol p.r.n. #MARYAM -CPAP at bedtime ?DVT prophylaxis-Lovenox ?full code Time Spent With Patient Time: Total time managing care of this patient today ____ minutes. Quality Stroke Does the patient have a stroke diagnosis?: No VTE Prior VTE?: No VTE Risk Level:: Medical - moderate - high VTE Device Contraindication: Treatment Not Indicated VTE Drug Contraindication: N/A - Med Ordered
[2023-01-22] MEDS: Cholecalciferol (Vitamin D3) 25 MCG TABLET 50 MCG PO (12:22)
[2023-01-22] MEDS: Docusate Sodium 100 MG CAPSULE 500 MG PO (12:22)
[2023-01-22] MEDS: Multivitamin TABLET 1 TAB PO (12:22)
--- NOTE | 2023-01-22 14:53 | MHC.CM.PN ---
[facility] AND HER [facility] [employer] [facility] [employer] 5 DAYS PER WEEK [facility] SHE HAS A WALKER PCP: DESTINEE GEORGES COPY OF HCP REQUESTED [MOTHER AND BROTHER] SHE IS [employer] NOTICE DELIVERED DCP: RETURN HOME, RESUME [facility] WILL TRANSPORT
[2023-01-22] MEDS: traZODone HCL 50 MG TABLET PO (20:20)
[2023-01-22] MEDS: QUEtiapine Fumarate 100 MG TABLET PO (20:20)
[2023-01-22] MEDS: QUEtiapine Fumarate 50 MG TABLET PO (20:20)
[2023-01-22] MEDS: Enoxaparin Sodium 40 MG/0.4 ML SYRINGE SUBCUT (20:21)
[2023-01-22] MEDS: Melatonin 3 MG TABLET PO (20:21)
[2023-01-22] MEDS: Albuterol Sulfate 90 MCG 8 GM INHALER 2 PUFF INHALE (20:43)
[2023-01-23 03:52] VITALS: BP 140/80; PULSE 76; RESP 18; TEMP 36.1; O2SAT 93
[2023-01-23 04:18] VITALS: RESP 18
[2023-01-23 07:39] VITALS: BP 133/81; PULSE 80; RESP 18; TEMP 36; O2SAT 90
[2023-01-23] MEDS: QUEtiapine Fumarate 50 MG TABLET PO (07:51)
[2023-01-23] MEDS: Cholecalciferol (Vitamin D3) 25 MCG TABLET 50 MCG PO (07:51)
[2023-01-23] MEDS: Ferrous Sulfate 324 MG TABLET.DR PO (07:51)
[2023-01-23] MEDS: Tolterodine Tartrate LA 4 MG CAP.ER.24H PO (07:51)
[2023-01-23] MEDS: Escitalopram Oxalate 5 MG TABLET 15 MG PO (07:51)
[2023-01-23] MEDS: Multivitamin TABLET 1 TAB PO (07:51)
[2023-01-23] MEDS: lamoTRIgine 25 MG TABLET 150 MG PO (07:52)
[2023-01-23] MEDS: Docusate Sodium 100 MG CAPSULE 500 MG PO (07:52)
[2023-01-23] MEDS: polyethylene glycoL 3350 17 GM POWD.PACK PO (07:53)
[2023-01-23] MEDS: 0.9 % Sodium Chloride Flush 3 ML SYRINGE IVFLUSH (07:53)
[2023-01-23] MEDS: lamoTRIgine 100 MG TABLET PO (07:53)
[2023-01-23] MEDS: Acetaminophen 325 MG TABLET 650 MG PO (07:54)
--- NOTE | 2023-01-23 07:57 | P.CONGS_ITS ---
History of Present Illness Consult details Consult date: 01/23/23 Reason for consult: abdominal pain Narrative: The patient is a 52-year-old woman with multiple medical problems including being a poor historian secondary to pre-existing comorbidities. She is seen at the request of the hospitalist service because of abdominal pain. The patient notes that she cannot recall the last time she had a bowel movement and it may have been access of a week. 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 She has a chronic issue with constipation. Review of Systems Review of Systems: Yes all other systems are reviewed and are negative Constitutional: Constitutional: Reports as per [facility] Past Medical History Medical History (Updated 01/23/23 @ 08:00 by Bernard Hung MD) Chronic constipation Conversion disorder Depression with anxiety Mild persistent asthma Obesity Overactive bladder Psychogenic nonepileptic seizure Unspecified psychosis Social History Social History Alcohol intake: never Patient Tobacco Use Status: Never used Tobacco service: No Current occupational status: disabled Meds Allergies Allergy/AdvReac Type Severity Reaction Status Date / Time levetiracetam [From [facility]] Allergy Unknown UNKNOWN Verified 01/21/23 23:50 Active Medications: Current Medications Acetaminophen (Acetaminophen 325 Mg Tablet) 650 mg PO Q6H PRN PRN Reason: Pain, Mild (Pain Scale 1-3) Last Admin: 01/23/23 07:54 Dose: 650 mg Albuterol Sulfate (Albuterol Sulfate 90 Mcg 8 Gm Inhaler) 2 puff INHALE Q4H PRN PRN Reason: Shortness of Breath/Wheezing Last Admin: 01/22/23 20:43 Dose: 2 puff Clonazepam (Clonazepam 0.5 Mg Tablet) 0.25 mg PO BID PRN PRN Reason: anxiety Docusate Sodium (Docusate Sodium 100 Mg Capsule) 100 mg PO DAILY PRN PRN Reason: Constipation Docusate Sodium (Docusate Sodium 100 Mg Capsule) 500 mg PO DAILY [facility] Last Admin: 01/23/23 07:52 Dose: 500 mg Enoxaparin Sodium (Enoxaparin Sodium 40 Mg/0.4 Ml Syringe) 40 mg SUBCUT Q24H [facility] Last Admin: 01/22/23 20:21 Dose: 40 mg Escitalopram Oxalate (Escitalopram Oxalate 5 Mg Tablet) 15 mg PO DAILY [facility] Last Admin: 01/23/23 07:51 Dose: 15 mg Ferrous Sulfate (Ferrous Sulfate 324 Mg Tablet.Dr) 324 mg PO DAILY [facility] Last Admin: 01/23/23 07:51 Dose: 324 mg Lamotrigine (Lamotrigine 100 Mg Tablet) 100 mg PO BID [facility] Last Admin: 01/23/23 07:53 Dose: 100 mg Lamotrigine (Lamotrigine 25 Mg Tablet) 150 mg PO BID [facility] Last Admin: 01/23/23 07:52 Dose: 150 mg Loratadine (Loratadine 10 Mg Tablet) 10 mg PO DAILY PRN PRN Reason: Allergy Symptoms Melatonin (Melatonin 3 Mg Tablet) 3 mg PO BEDTIME [facility] Last Admin: 01/22/23 20:21 Dose: 3 mg Multivitamins/Vitamin C (Multivitamin Tablet) 1 tab PO DAILY [facility] Last Admin: 01/23/23 07:51 Dose: 1 tab Non-Formulary Medication (Budesonide) 0.5 mg INHALE BID [facility] Ondansetron HCl (Ondansetron Hcl 4 Mg/2 Ml Vial) 4 mg IVPUSH Q8H PRN PRN Reason: Nausea and Vomiting Polyethylene Glycol (Polyethylene Glycol 3350 17 Gm Powd.Pack) 17 gm PO DAILY P RN PRN Reason: Constipation Last Admin: 01/23/23 07:53 Dose: 17 gm Quetiapine Fumarate (Quetiapine Fumarate 50 Mg Tablet) 50 mg PO BID [facility] Last Admin: 01/23/23 07:51 Dose: 50 mg Quetiapine Fumarate (Quetiapine Fumarate 100 Mg Tablet) 100 mg PO BEDTIME [facility] Last Admin: 01/22/23 20:20 Dose: 100 mg Sodium Chloride (0.9 % Sodium Chloride Flush 3 Ml Syringe) 3 ml IVFLUSH QSHIFT [facility] Last Admin: 01/23/23 07:53 Dose: 3 ml Tolterodine Tartrate (Tolterodine Tartrate La 4 Mg Cap.Er.24h) 4 mg PO DAILY [facility] Last Admin: 01/23/23 07:51 Dose: 4 mg Trazodone HCl (Trazodone Hcl 50 Mg Tablet) 50 mg PO BEDTIME [facility] Last Admin: 01/22/23 20:20 Dose: 50 mg Vitamin D (Cholecalciferol (Vitamin D3) 25 Mcg Tablet) 50 mcg PO DAILY [facility] Last Admin: 01/23/23 07:51 Dose: 50 mcg Home Medications Medication Instructions Recorded Confirmed Last Taken Type citalopram 10 mg tablet 10 mg PO DAILY 01/21/23 01/21/23 Unknown History citalopram 20 mg tablet 20 mg PO DAILY 01/21/23 01/21/23 Unknown History clonazepam 0.5 mg tablet (Klonopin) 0.25 mg PO DAILY PRN Agitation 01/21/23 01/22/23 Unknown History lamotrigine 100 mg tablet 100 mg PO BID 01/21/23 01/21/23 Unknown History lamotrigine 150 mg tablet 150 mg PO BID 01/21/23 01/21/23 Unknown History melatonin 3 mg tablet 3 mg PO BEDTIME 01/21/23 01/21/23 Unknown History quetiapine 100 mg tablet 100 mg PO BID 01/21/23 01/22/23 Unknown History quetiapine 50 mg tablet 50 mg PO BID 01/21/23 01/22/23 Unknown History solifenacin 10 mg tablet 10 mg PO DAILY 01/21/23 01/21/23 Unknown History trazodone 50 mg tablet 25 mg PO BEDTIME PRN Insomnia 01/21/23 01/22/23 Unknown History acetaminophen 325 mg tablet 325 mg PO Q4H PRN Pain 01/22/23 01/22/23 Unknown History albuterol sulfate 2.5 mg/3 mL 2.5 mg inhalation BID PRN 01/22/23 01/22/23 Unknown History (0.083 %) solution for nebulization Shortness Of Breath Or Wheezing albuterol sulfate 90 mcg/actuation 2 puff inhalation Q6H PRN 01/22/23 01/22/23 Unknown History aerosol inhaler Shortness Of Breath Or Wheezing budesonide 0.5 mg/2 mL suspension 0.5 mg inhalation BID 01/22/23 01/22/23 Unknown History for nebulization cholecalciferol (vitamin D3) 50 50 mcg PO QAM 01/22/23 01/22/23 Unknown History mcg (2,000 unit) tablet (Vitamin D3) docusate sodium 100 mg tablet 500 mg PO QAM 01/22/23 01/22/23 Unknown History ferrous gluconate 324 mg (37.5 mg 324 mg PO DAILY 01/22/23 01/22/23 Unknown History iron) tablet fexofenadine 60 mg tablet 60 mg PO Q12H PRN Allergy Symptoms 01/22/23 01/22/23 Unknown History fiber 1 tab PO BID 01/22/23 01/22/23 Unknown History multivitamin (Daily-Saira tablet) 1 tab PO QAM 01/22/23 01/22/23 Unknown History polyethylene glycol 3350 17 17 g PO DAILY PRN Constipation 01/22/23 01/22/23 Unknown History gram/dose oral powder (Miralax) Physical Exam Vital Signs: Vital Signs: Last Vital Signs Temp 96.8 F 01/23/23 07:39 Pulse 80 01/23/23 07:39 Resp 18 01/23/23 07:39 BP 133/81 01/23/23 07:39 Pulse Ox 90 L 01/23/23 07:39 O2 Del Method Room Air 01/23/23 07:39 BMI result Body Mass Index 34.2 The patient is non-toxic & in good spirits NC/AT, PERRLA, EOMI Mood, affect & judgment all appear childlike Sclera anicteric conjunctiva pink and moist Oropharynx is clear with no aphthous ulcers, Mallampati class 4, mucous membranes moist Neck is supple with no masses, adenopathy or bruits Thyroid is nontender and free of dominant masses Heart is regular, normal S1-S2 no rubs or murmurs Lungs are clear and equal anteriorly with no audible wheezing, rubs or dullness to percussion Abdomen is obese with LLQ pain without R/R/G. And nontender umbilical hernia and prominent diastasis is noted. No HSM, rebound, rigidity, guarding, masses or bruits are present. Rectal exam is deferred Skin has good turgor and is free of rashes Extremities free of cyanosis clubbing edema Results Labs 01/22/23 06:37 01/22/23 06:37 Labs: Urine 01/21/23 Range/Units 17:58 Urine Color Yellow Urine Appearance Clear Urine pH 6.0 (5.0-9.0) Ur Specific [place] <= 1.005 (1.005-1.025) Urine Protein Negative (Neg-Trace) mg/dL Urine Glucose (UA) Negative (Negative) mg/dL All other labs normal. 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 Her umbilical hernia is incidental under relevant to her presentation. No surgical intervention is required. Recommend consideration to enemas, an aggressive bowel regime be started. Please call again if a surgical issue arises. Time Spent With Patient Time: Total time managing care of this patient today ____ minutes. Procedures Date of Service Date of Service: 01/23/23
[2023-01-23 08:31] VITALS: PULSE 88; RESP 18; O2SAT 90
--- NOTE | 2023-01-23 11:13 | PM.DS ---
DS: Providers Provider Date of Service: 01/23/23 Date of admission: 01/21/23 20:59 Date of discharge: 01/23/23 Primary care physician: Taylor Gomez DO Admitting clinician: Alisha Youngblood Attending physician on admission: Thomas Zeng Consults: 01/21/23 21:07 Consult to Neurology Routine Consulting Provider: [facility] Reason for consultation: syncope, ?seizure vs pseudoseizure 01/22/23 12:46 Consult to General Surgery Routine Consulting Provider: [facility] [place] General Surgeons Reason for consultation: large ventral hernia Attending physician on discharge: Carter Uribe Discharging clinician: Alisha Youngblood DS: Diagnosis Discharge Diagnosis (1) Seizure disorder: Status: Acute (2) 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 developmental delay,mild persistent asthma, and chronic constipation presents to the ED via EMS accompanied by her family /caregivers for evaluation of a syncopal episode that occurred while at [facility] [employer] this afternoon.? The patient had an episode of loss of consciousness that resolved spontaneously after several seconds without any postictal symptoms reported by family.? However the patient does state that she feels somewhat lightheaded with that she has been experiencing lightheadedness for several weeks along with brain fog and fatigue.? On exam, she is alert and oriented x3.? She reports compliance with all of her medications.? On arrival, vital signs stable.? Hematology studies unremarkable.? Renal function and electrolyte levels within normal limits.? TSH pending.? Urinalysis unremarkable.? Head CT is negative for any acute intracranial? Abnormality.? EKG shows NSR, rate [address] /T-wave abnormality.? No arrhythmia noted on property assessment monitor. The patient states that she has been experiencing increased frequency of seizure activity. ? No prior records are available for review in our system, but prior records from [facility] have been reviewed. Hospital Course: Pt observed following syncopal episode lasting several seconds. Head CT without acute intracranial abnormality. Negative for orthostatic vitals. No evidence of infection. Electrolytes and thyroid studies normal. No arrhythmia noted on telemetry. Still reporting intermittent brain fog and fatigue. Evaluated by neurology stating symptoms could be related to conversion disorder/psychogenic non-epileptic seizure which she has known history of, but given history, is at high risk of epileptic seizure disorder. While in the hospital, no epileptic seizures noted. Pt did have what appeared consistent with a pseudoseizure with shaking of the head and twitching of the right arm after the arm was tapped. Eyes opened spontaneously and patient verbal and oriented following brief episode. She was observed for additional night as a result without recurrent episode. Incidentally, patient exhibited exquisite subjective abd ttp on exam, though abd noted to be soft. Ct abd/pelvis ordered which showed appropriately placed MEDICAL ADMINISTRATOR shunt catheters in area of tenderness and small fat containing umbilical hernia. Evaluated by general surgery and no intervention was recommended other than managing constipation. While in the hospital patient was continued on home medications, no adjustments recommended by neurology and will continue these on discharge. Advised to follow up outpatient with neurology for outpatient EEG study and further evaluation. Follow up with PCP and psychiatric team. Status at Discharge Functional status at discharge: independent ambulation Overall status at discharge: patient is progressing back to baseline Time Spent with Patient Time attestation: Total time managing care of this patient today ____ minutes. Discharge coordination time: Greater than 30 minutes Quality: Safe Use of Opioids Does Pt have an Active Cancer Diagnosis on the Problem List?: No Quality: Stroke Does the patient have a stroke diagnosis?: No Physical Exam Vital Signs: Vital Signs: Last Vital Signs Temp 96.8 F 01/23/23 07:39 Pulse 80 01/23/23 07:39 Resp 18 01/23/23 08:31 BP 133/81 01/23/23 07:39 Pulse Ox 90 L 01/23/23 07:39 O2 Del Method Room Air 01/23/23 07:39 BMI result Body Mass Index 34.2 Constitutional - Awake and Alert, No apparent distress Eyes - PERRLA, EOMI Cardiovascular - S1S2, RRR, No edema Respiratory - Normal lung expansion, Normal respiratory effort, No respiratory distress, CTA bilaterally Gastrointestinal - NT / ND; +BS; No rebound or guarding Extremities - no calf tenderness bilaterally, no swelling Skin - Warm/Dry Neurological - Alert & oriented x3 Psychological - Appropriate affect Discharge Plan Discharge Anticipated Discharge Date/Time: 01/23/23 10:56 Patient Disposition: Home, Self-Care Discharge Diagnosis: syncope, psychogenic seizures Referrals: Taylor Gomez DO [Primary Care Provider] - 1 Week Talia Howard MD [Physician] - 2 Weeks Discharge Medications: Continued lamotrigine 150 mg tablet 150 mg PO BID trazodone 50 mg tablet 25 mg PO BEDTIME PRN (Reason: Insomnia) citalopram 10 mg tablet 10 mg PO DAILY quetiapine 100 mg tablet 100 mg PO BID citalopram 20 mg tablet 20 mg PO DAILY lamotrigine 100 mg tablet 100 mg PO BID solifenacin 10 mg tablet 10 mg PO DAILY quetiapine 50 mg tablet 50 mg PO BID clonazepam [Klonopin] 0.5 mg tablet 0.25 mg PO DAILY PRN (Reason: Agitation) melatonin 3 mg tablet 3 mg PO BEDTIME multivitamin [Daily-Saira] Tablet 1 tab PO QAM acetaminophen 325 mg Tablet 325 mg PO Q4H PRN (Reason: Pain) albuterol sulfate 2.5 mg /3 mL (0.083 %) Solution For Nebulization 2.5 mg INHALATION BID PRN (Reason: Shortness Of Breath Or Wheezing) fexofenadine 60 mg Tablet 60 mg PO Q12H PRN (Reason: Allergy Symptoms) budesonide 0.5 mg/2 mL Suspension For Nebulization 0.5 mg INHALATION BID polyethylene glycol 3350 [Miralax] 17 gram/dose Powder 17 g PO DAILY PRN (Reason: Constipation) albuterol sulfate 90 mcg/actuation Hfa Aerosol Inhaler 2 puff INHALATION Q6H PRN (Reason: Shortness Of Breath Or Wheezing) docusate sodium 100 mg Tablet 500 mg PO QAM fiber Tablet,Chewable 1 tab PO BID cholecalciferol (vitamin D3) [Vitamin D3] 50 mcg (2,000 unit) Tablet 50 mcg PO QAM ferrous gluconate 324 mg (37.5 mg iron) Tablet 324 mg PO DAILY Discharge Orders: Discharge Order (Routine); Ordered 01/23/23 Ordered By: Alisha Youngblood Diet: Advance to usual diet Activity on Discharge: As tolerated Stand Alone Forms: Patient Portal Discharge page Care Plan Goals: See below Health Concerns: Syncope Seizures Pseudoseizures Plan of Treatment: You were admitted to the hospital following a syncopal episode lasting several seconds. There were no abnormal heart rhythms noted and vital signs were normal throughout admission. Your head CT was without any acute abnormality. Your labs were also normal. You have a history of a conversion disorder and pseudoseizures. You were evaluated by neurology who suggested the episode could have been related to these non-epileptic seizures, but epileptic seizures are possible. He is recommending you follow up outpatient neurology in the office with an outpatient EEG study which he will arrange. You did exhibit evidence of pseudoseizure activity while admitted and no intervention was needed. Continue with your home medications. Your abdomen was very tender intermittently on exam raising concern for hernia. On your CT there was no significant hernia and the area of your discomfort is consistent with you MEDICAL ADMINISTRATOR shunt which appeared to be in normal position on CT. You were also available by general surgery who did not feel the abdominal pain required immediate intervention but recommended better constipation management. Continue your home regimen for constipation on discharge. Assessment: See above Discharge Date/Time: 01/23/23 14:06
[2023-01-23 11:17] VITALS: BP 133/78; PULSE 90; RESP 17; TEMP 36.2; O2SAT 92
[2023-01-23] MEDS: Sodium Phosphate,Mono-Dibasic 133 ML ENEMA PR (11:18)
--- NOTE | 2023-01-23 11:41 | MHC.CM.PN ---
PT MEDICALLY CLEARED FOR D/C HOME AND WILL RESUME SHARED LIVING W/[facility] AND HER AND DAY PROGRAM M-, [facility] WILL TRANSPORT PT.
[2023-01-23] MEDS: clonazePAM 0.5 MG TABLET 0.25 MG PO (12:11)
--- NOTE | 2023-01-23 14:06 | PC.NURSE ---
Patient alert and oriented x 3, c/o headache 10 this AM , PRN Tylenol 650 mg admin with good effect. Pt c/o constipation schedule Colace and PRN Fleet Enema admin, pt had 2 episodes of soft large bowel movement.
[2023-01-25 16:29] LABS: Lamotrigine Lamictal 8.6 mcg/mL (2.5-15.0)
== END 2023-01-23 14:06 | disposition home or self-care (01) ==
LOC: HO.ED 20:27 → HO.EDOVER 21:12 → HO.IMC 22:57
PROVIDERS: Admitting Provider Physician Assistant; Emergency Provider Emergency Medicine; PCP Internal Medicine; Visit Provider Physician Assistant
DX: R55 Syncope and collapse (principal); F44.5 Conversion disorder with seizures or convulsions; G91.9 Hydrocephalus, unspecified; Z98.2 Presence of cerebrospinal fluid drainage device; F29 Unspecified psychosis not due to a substance or known physiological condition; J45.30 Mild persistent asthma, uncomplicated
CPT/HCPCS: 36415; 70450; 74176; 80048; 80076; 80175; 81003; 83690; 84443; 84484; 85025; 93005; 94640; 94660; 94664; 96372; 99222; 99285; J1650

== ENCOUNTER 2023-02-21 19:02 | Emergency (ER) | payer MEDICARE, MEDICAID, SELFPAY ==
--- NOTE | ~2023-02-21 | CT_ITS ---
EXAMINATION: CT HEAD WITHOUT CONTRAST CLINICAL INFORMATION: Change in behavior. COMPARISON: Head CT from 01/21/2023. TECHNIQUE: Contiguous axial imaging was performed from the skullbase to vertex without intravenous administration of contrast. This CT examination was performed using dose optimization techniques as appropriate, variously including the following: *Automated exposure control *Adjustment of mA and/or kV according to patient size (this includes techniques or standardized protocols for targeted exams where dose is matched to indication/reason for exam; i.e. extremities or head) *Use of iterative reconstruction technique DLP: 674 mGy-cm. FINDINGS: Imaging findings of a Chiari II malformation again noted with significant dolichocephaly. A left parietal HEAVY FORGER shunt catheter is in place terminating in the atrium of the left lateral ventricle. A right frontal HEAVY FORGER shunt catheter crosses the midline and terminates in the region of the left caudothalamic groove. Patulous appearance of various cerebral sulci again noted. Dysmorphic appearance of the ventricular system is similar to previous imaging. 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 Dural-based calcifications again visible along the inner cortical tables of the calvarium. There is no evidence of acute intracranial hemorrhage or territorial infarction. No abnormal mass effect or midline shift is seen. Saunders to white matter differentiation is well preserved. No new extra-axial fluid collections are identified. The osseous structures and soft tissues are normal. The mastoid air cells and visualized portions of the paranasal sinuses are well aerated. CT/CT head/brain wo IV con IMPRESSION: No acute intracranial hemorrhage or territorial infarction. Stable shunted ventricular system and chronic imaging stigmata of a Chiari II malformation.
--- NOTE | 2023-02-21 19:30 | ED.GENADULT ---
HPI - General Adult General Chief complaint: Psychiatric Symptoms Stated complaint: mental health evaluation Time Seen by Provider: 02/21/23 21:12 Source: patient Mode of arrival: ambulatory Limitations: no limitations History of Present Illness HPI narrative: 52 yold female mentally challenge, seizure disorder, and psych history presents to the ED for getting into fight with rn palliative care and making suicidal statements but with no plan. 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 patient not taking her meds at scheduled time. Related Data Home Medications Medication Instructions Recorded Confirmed clonazepam 0.5 mg tablet (Klonopin) 0.25 mg PO DAILY PRN Agitation 01/21/23 02/21/23 melatonin 3 mg tablet 3 mg PO BEDTIME 01/21/23 02/21/23 albuterol sulfate 90 mcg/actuation 2 puff inhalation Q6H PRN 01/22/23 02/21/23 aerosol inhaler Shortness Of Breath Or Wheezing docusate sodium 100 mg tablet 500 mg PO QAM 01/22/23 02/21/23 ferrous gluconate 324 mg (37.5 mg 324 mg PO DAILY 01/22/23 02/21/23 iron) tablet fiber 1 tab PO BID 01/22/23 02/21/23 multivitamin (Daily-Saira tablet) 1 tab PO QAM 01/22/23 02/21/23 polyethylene glycol 3350 17 17 g PO DAILY PRN Constipation 01/22/23 02/21/23 gram/dose oral powder (Miralax) citalopram 10 mg tablet 30 mg PO DAILY 02/21/23 02/22/23 lamotrigine 150 mg tablet 150 mg PO BID 02/21/23 02/21/23 quetiapine 100 mg tablet 100 mg PO BID 02/21/23 02/21/23 solifenacin 10 mg tablet 10 mg PO DAILY 02/21/23 02/21/23 trazodone 50 mg tablet 50 mg PO BEDTIME 02/21/23 02/21/23 lamotrigine 100 mg tablet 100 mg PO BID 02/22/23 02/22/23 quetiapine 50 mg tablet 50 mg PO BID@0900,1600 02/22/23 02/22/23 Allergies Allergy/AdvReac Type Severity Reaction Status Date / Time levetiracetam [From [facility]] Allergy Unknown UNKNOWN Verified 01/21/23 23:50 Review of Systems Review of Systems: anger Yes all other systems are reviewed and are negative [facility] Past Medical History Medical History (Updated 02/22/23 @ 11:21 by Kaia Garcia MD) Chronic constipation Conversion disorder Depression with anxiety Mild persistent asthma Obesity Overactive bladder Psychogenic nonepileptic seizure Unspecified psychosis Social History Social History Alcohol intake: never Patient Tobacco Use Status: Never used Tobacco Smoked in Last 30 Days: No Use of substances other than those prescribed or required for medical reasons: No Advance Directives: No Advance Directives Information Provided: Yes service: No Current occupational status: disabled Physical Exam ED Vital Signs: Vital Signs - 24 hr 02/21/23 19:31 02/21/23 20:37 02/21/23 22:43 Temperature 97.4 F 98.3 F 97.6 F Pulse Rate 86 74 72 Respiratory Rate 18 18 17 Blood Pressure 141/87 H 135/93 H 133/87 Pulse Oximetry 97 95 93 Oxygen Delivery Method Room Air Room Air Room Air 02/22/23 00:44 02/22/23 02:50 02/22/23 08:21 Temperature 98.7 F Pulse Rate 75 82 82 Respiratory Rate 15 18 16 Blood Pressure 125/78 125/78 144/94 H Pulse Oximetry 92 99 99 Oxygen Delivery Method Room Air Room Air Room Air BMI result Body Mass Index 33.8 Const General: cooperative, healthy appearing, comfortable, no acute distress, well developed, alert, awake and Physically active Orientation/consciousness: oriented to person, oriented to place, oriented to time and patient oriented x3 HENMT Head: Yes normal to inspection, Yes No palpable skull fracture present, Yes normocephalic, Yes atraumatic and No abrasion Eyes General: appearance normal, both eyes and all related structures Neck Neck: Yes normal visual inspection, Yes full ROM, Yes no lymphadenopathy, Yes no meningeal signs, Yes trachea midline, Yes supple, No anterior neck swelling and No tender Chest Chest palpation & inspection: normal inspection of the chest and normal palpation of entire chest wall Resp Effort & Inspection: normal respiratory effort and able to speak in complete sentences Auscultation: clear to auscultation bilaterally Cardio Jugular venous distension: no JVD Heart sounds: S1 normal heart sound present and S2 normal heart sound present GI Inspection: Yes normal to inspection and No abdominal wall ecchymosis Palpation (GI): Soft to palpation, not firm, nontender, no guarding and not rigid General: No CVA tenderness and Yes no CVA tenderness Back/Spine/Pelvis Back: no CVA tenderness, No CVA tenderness and No back tenderness Skin General skin exam: no rashes or lesions noted and elasticity normal Neuro General: oriented to person, oriented to place, oriented to time, patient oriented x3, gait normal, tone normal, moves all extremities, Normal light touch and pain sensation, no meningeal signs, no focal motor deficits, CN's II-XI intact bilaterally and normal sensation to monofilament Extrem General: Yes normal to inspection and Yes full ROM Psych Appearance: grossly normal, well kempt and not disheveled Course Course Course Narrative: This is an RME: Additional HPI, ROS, PE not included below will be deferred to primary provider. 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 developmental delay,mild persistent asthma, and chronic constipation, presenting to the emergency department, accompanied by caregiver, with complaints of headaches, fatigue, change in behavior, and ?auditory/?visual hallucinations since today. Caregiver states that they both were visiting a family member upstairs and patient had missed a dose of her medication and patient became very upset and started kicking and security had to escort her down here to be evaluated. Caregiver requesting eval for dementia. Caregiver reports decline in mental status for the last 3 months however care given it has only known patient for 3 months. no SI or HI. Vital signs stable. Patient stable return to waiting room until treatment room becomes available. Plan: Labs, UA, CT head Reevaluation(s) Reevaluation #1: Continue physician observation, patient is awaiting care team evaluation. Medication reconciliation signed this morning. Time: 07:19 Reevaluation #2: Care team cleared for discharge to home and has appt this morning/afternoon and multiple outpatient resources. Pt reacted to situation and caregivers are willing to take home. Time: 11:19 Medications Administered Generic Name Dose Route Start Last Admin Trade Name Freq PRN Reason Stop Dose Admin Calcium Polycarbophil 1 tab 02/22/23 09:00 02/22/23 09:54 Calcium Polycarbophil Tablet PO Not Given BID TRI Docusate Sodium 500 mg 02/22/23 09:00 02/22/23 09:54 Docusate Sodium 100 Mg Capsule PO Not Given DAILY TRI Escitalopram Oxalate 15 mg 02/22/23 09:00 02/22/23 09:06 Escitalopram Oxalate 5 Mg Tablet PO 15 mg DAILY TRI Administration Ferrous Sulfate 324 mg 02/22/23 09:00 02/22/23 09:07 Ferrous Sulfate 324 Mg Tablet.Dr PO 324 mg DAILY TRI Administration Lamotrigine 250 mg 02/22/23 09:00 02/22/23 09:07 Lamotrigine 100 Mg Tablet PO 250 mg BID TRI Administration Multivitamins/Vitamin C 1 tab 02/22/23 09:00 02/22/23 09:07 Multivitamin Tablet PO 1 tab DAILY TRI Administration Quetiapine Fumarate 100 mg 02/22/23 09:00 02/22/23 09:07 Quetiapine Fumarate 100 Mg Tablet PO 100 mg BID TRI Administration Quetiapine Fumarate 50 mg 02/22/23 09:00 02/22/23 09:57 Quetiapine Fumarate 50 Mg Tablet PO 50 mg DAILY@0900,1600 TRI Administration Discontinued Medications Generic Name Dose Route Start Last Admin Trade Name Maren PRN Reason Stop Dose Admin Acetaminophen 650 mg 02/22/23 08:59 02/22/23 09:06 Acetaminophen 325 Mg Tablet PO 02/22/23 09:00 650 mg ONCE ONE Administration Medical Decision Making Medical Decision Making [facility] Narrative: PT0 female for to ED for anger issues and suicidal statements. Patient pleasant throughout the ED visit. Clinical workup normal. Patient pending care team consultation. Patient not in any distress. Differential Diagnosis Differential Diagnoses: The differential diagnosis associated with the presentation includes (UTI, stroke, drug use, adjustment disorder, electrolyte deficiency) Admission/Observation Consideration of admission/observation: Escalation of care including admission/observation considered Consult Healthcare Provider Management of the patient was discussed with: Trouble Clerk (Care team) Lab Data [facility] Lab Attestation statement: I reviewed the patient's lab results. 02/21/23 20:22 02/21/23 20:22 Labs: Lab Results 02/21/23 02/21/23 02/21/23 Range/Units 20:22 20:22 20:22 WBC 10.5 (4.8-10.8) X10*3/uL RBC 4.22 (4.20-5.50) X10*6/uL Hgb 12.8 (12.0-16.0) g/dl Hct 39.1 (37.0-47.0) % MCV 92.7 (80.0-98.0) fL MCH 30.3 (27.0-33.0) pg MCHC 32.7 (31.0-35.0) g/dl RDW 13.4 (11.0-16.0) % Plt Count 238 (160-400) X10*3/uL MPV 8.9 L (9.4-12.3) fL Immature Gran % (Auto) 0.8 H (0.0-0.4) % Neut % (Auto) 53.1 (45-73) % Lymph % (Auto) 32.3 (20-40) % [place] % (Auto) 8.2 (2-11) % Eos % (Auto) 5.1 H (0-4) % Baso % (Auto) 0.5 (0-2) % Lymph # (Auto) 3.4 (1.2-4.9) X10*3/uL [place] # (Auto) 0.9 (0.1-1.2) X10*3/uL Eos # (Auto) 0.5 H (0.0-0.4) X10*3/uL Baso # (Auto) 0.1 (0.0-0.2) X10*3/uL Abs Immat Gran (auto) 0.08 H (0.00-0.03) X10*3/uL Absolute Neuts (auto) 5.6 (2.0-8.3) x10*3/uL Absolute Nucleated RBC 0.000 (0.0-0.012) X10*3/uL Nucleated RBC % (auto) 0.0 (0.0-0.2) /100WBC Sodium 138 (135-145) mmol/L Potassium 4.3 (3.3-5.1) mmol/L Chloride 101 (96-108) mmol/L Carbon Dioxide 30 H (22-29) mmol/L Anion Gap 11 L (12-20) BUN 16 (9-16) mg/dL Creatinine 0.86 (0.5-1.4) mg/dL Estim Creat Clear Calc 78.5 Estimated GFR > 60 Random Glucose 83 (60-115) mg/dL Calcium 9.7 D (8.4-10.2) mg/dL Magnesium 2.1 (1.6-2.6) mg/dL Total Bilirubin 0.4 (0.0-1.0) mg/dL Direct Bilirubin 0.1 (0.0-0.5) mg/dL AST 10 (5-31) U/L ALT 14 (0-31) U/L Alkaline Phosphatase 94 (39-117) U/L Total Protein 6.9 (6.5-8.0) g/dL Albumin 3.9 (3.5-5.0) g/dL Urine Color Urine Appearance Urine pH (5.0-9.0) Ur Specific [place] (1.005-1.025) Urine Protein (Neg-Trace) mg/dL Urine Glucose (UA) (Negative) mg/dL Urine Ketones (Negative) mg/dL Urine Blood (Negative) Urine Nitrite (Negative) Ur Leukocyte Esterase (Negative) Urine Opiates Screen (Not Detect) Urine Fentanyl Screen (Not Detect) Ur Barbiturates Screen (Not Detect) Ur Phencyclidine Scrn (Not Detect) Ur Amphetamines Screen (Not Detect) U Benzodiazepines Scrn (Not Detect) Urine Cocaine Screen (Not Detect) U Marijuana (THC) Screen (Not Detect) Ethyl Alcohol < 10 mg/dL COVID-19 ([facility]) Negative (Negative) COVID-19 Clin Com See Note 02/21/23 02/21/23 Range/Units 21:50 21:50 WBC (4.8-10.8) X10*3/uL RBC (4.20-5.50) X10*6/uL Hgb (12.0-16.0) g/dl Hct (37.0-47.0) % MCV (80.0-98.0) fL MCH (27.0-33.0) pg MCHC (31.0-35.0) g/dl RDW (11.0-16.0) % Plt Count (160-400) X10*3/uL MPV (9.4-12.3) fL Immature Gran % (Auto) (0.0-0.4) % Neut % (Auto) (45-73) % Lymph % (Auto) (20-40) % [place] % (Auto) (2-11) % Eos % (Auto) (0-4) % Baso % (Auto) (0-2) % Lymph # (Auto) (1.2-4.9) X10*3/uL [place] # (Auto) (0.1-1.2) X10*3/uL Eos # (Auto) (0.0-0.4) X10*3/uL Baso # (Auto) (0.0-0.2) X10*3/uL Abs Immat Gran (auto) (0.00-0.03) X10*3/uL Absolute Neuts (auto) (2.0-8.3) x10*3/uL Absolute Nucleated RBC (0.0-0.012) X10*3/uL Nucleated RBC % (auto) (0.0-0.2) /100WBC Sodium (135-145) mmol/L Potassium (3.3-5.1) mmol/L Chloride (96-108) mmol/L Carbon Dioxide (22-29) mmol/L Anion Gap (12-20) BUN (9-16) mg/dL Creatinine (0.5-1.4) mg/dL Estim Creat Clear Calc Estimated GFR Random Glucose (60-115) mg/dL Calcium (8.4-10.2) mg/dL Magnesium (1.6-2.6) mg/dL Total Bilirubin (0.0-1.0) mg/dL Direct Bilirubin (0.0-0.5) mg/dL AST (5-31) U/L ALT (0-31) U/L Alkaline Phosphatase (39-117) U/L Total Protein (6.5-8.0) g/dL Albumin (3.5-5.0) g/dL Urine Color Yellow Urine Appearance Clear Urine pH 7.5 (5.0-9.0) Ur Specific [place] <= 1.005 (1.005-1.025) Urine Protein Negative (Neg-Trace) mg/dL Urine Glucose (UA) Negative (Negative) mg/dL Urine Ketones Negative (Negative) mg/dL Urine Blood Negative (Negative) Urine Nitrite Negative (Negative) Ur Leukocyte Esterase Negative (Negative) Urine Opiates Screen Not Detected (Not Detect) Urine Fentanyl Screen Not Detected (Not Detect) Ur Barbiturates Screen Not Detected (Not Detect) Ur Phencyclidine Scrn Not Detected (Not Detect) Ur Amphetamines Screen Not Detected (Not Detect) U Benzodiazepines Scrn Not Detected (Not Detect) Urine Cocaine Screen Not Detected (Not Detect) U Marijuana (THC) Screen Not Detected (Not Detect) Ethyl Alcohol mg/dL COVID-19 ([facility]) (Negative) COVID-19 Clin Com Radiology Impression Discussion of test interpretation with radiology: I have reviewed the radiologist's reading. 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 Resume all home medications. Return to the ER for any worsening of symptoms. Prescriptions: No Action lamotrigine 150 mg tablet 150 mg PO BID trazodone 50 mg tablet 50 mg PO BEDTIME citalopram 10 mg tablet 30 mg PO DAILY quetiapine 100 mg tablet 100 mg PO BID solifenacin 10 mg tablet 10 mg PO DAILY lamotrigine 100 mg tablet 100 mg PO BID quetiapine 50 mg tablet 50 mg PO BID@0900,1600 clonazepam [Klonopin] 0.5 mg tablet 0.25 mg PO DAILY PRN (Reason: Agitation) melatonin 3 mg tablet 3 mg PO BEDTIME multivitamin [Daily-Saira] Tablet 1 tab PO QAM polyethylene glycol 3350 [Miralax] 17 gram/dose Powder 17 g PO DAILY PRN (Reason: Constipation) albuterol sulfate 90 mcg/actuation Hfa Aerosol Inhaler 2 puff INHALATION Q6H PRN (Reason: Shortness Of Breath Or Wheezing) docusate sodium 100 mg Tablet 500 mg PO QAM fiber Tablet,Chewable 1 tab PO BID ferrous gluconate 324 mg (37.5 mg iron) Tablet 324 mg PO DAILY Referrals: Cristin Nuñez MD [Primary Care Provider] - Interventions: [place]-Suicide Risk Severity Scale Last Done: 02/22/23 04:00
[2023-02-21 19:31] VITALS: BP 141/87; PULSE 86; RESP 18; TEMP 36.3; O2SAT 97; BMI 33.8
[2023-02-21 20:27] LABS: MANUAL DIFF FLAG NO
[2023-02-21 20:31] LABS: Basophils Absolute Auto 0.1 X10*3/uL (0.0-0.2); Basophils Percent Auto 0.5 % (0-2); Eosinophils Absolute Auto 0.5 X10*3/uL (0.0-0.4); Eosinophils Percent Auto 5.1 % (0-4); Hematocrit 39.1 % (37.0-47.0); Hemoglobin 12.8 g/dl (12.0-16.0); Imm Gran Abs Auto 0.08 X10*3/uL (0.00-0.03); Imm Gran Pct Auto 0.8 % (0.0-0.4); Lymphocytes Absolute Auto 3.4 X10*3/uL (1.2-4.9); Lymphocytes Percent Auto 32.3 % (20-40); Mean Corpuscular HGB Conc 32.7 g/dl (31.0-35.0); Mean Corpuscular Hemoglobin 30.3 pg (27.0-33.0); Mean Corpuscular Volume 92.7 fL (80.0-98.0); Mean Platelet Volume 8.9 fL (9.4-12.3); Monocytes Absolute Auto 0.9 X10*3/uL (0.1-1.2); Monocytes Percent Auto 8.2 % (2-11); Neutrophils Absolute Auto 5.6 x10*3/uL (2.0-8.3); Neutrophils Percent Auto 53.1 % (45-73); Platelet Count 238 X10*3/uL (160-400); Red Blood Count 4.22 X10*6/uL (4.20-5.50); Red Cell Distribution Width 13.4 % (11.0-16.0); White Blood Count 10.5 X10*3/uL (4.8-10.8)
[2023-02-21 20:37] VITALS: BP 135/93; PULSE 74; RESP 18; TEMP 36.8; O2SAT 95
[2023-02-21 20:43] LABS: COVID-19 Test Negative (Negative); IDNOW Serial# BCCEAD1C
[2023-02-21 20:49] LABS: Alanine Aminotransferase 14 U/L (0-31); Albumin Level 3.9 g/dL (3.5-5.0); Alkaline Phosphatase 94 U/L (39-117); Anion Gap 11 (12-20); Aspartate Amino Transferase 10 U/L (5-31); Bilirubin Direct 0.1 mg/dL (0.0-0.5); Bilirubin Total 0.4 mg/dL (0.0-1.0); Blood Urea Nitrogen 16 mg/dL (9-16); Calcium 9.7 mg/dL (8.4-10.2); Carbon Dioxide 30 mmol/L (22-29); Chloride 101 mmol/L (96-108); Creatinine Clr Calc Pharmacy 78.5; Estimated Glomerular Filt Rate > 60; Ethanol < 10 mg/dL; Glucose Random 83 mg/dL (60-115); Magnesium 2.1 mg/dL (1.6-2.6); Potassium 4.3 mmol/L (3.3-5.1); Sodium 138 mmol/L (135-145); Total Protein 6.9 g/dL (6.5-8.0)
--- NOTE | 2023-02-21 20:49 | PC.NURSE ---
Addendum entered by Melissa Mejia 02/21/23 22:26: sitter at bedside after triage Original Note: c/o headache 8/10 pain, upper quads abd discomfort notably distended, feels pressure denies n/v/d pt states she hasn't been getting along with caregivers because caregiver and havent been getting along and she is sensitive to that pt's caregiver is a live-in pt states she feels depressed and foggy unprovoked no apparent distress resting comfortably with caregiver at bedside aox4
[2023-02-21 22:03] LABS: Appearance Urine Clear; Color Urine Yellow; Glucose Urine UA Negative (Negative); Leukocyte Esterase Urine Negative (Negative); Nitrite Urine Negative (Negative); PH 7.5 (5.0-9.0); Specific Gravity - Urine <= 1.005 (1.005-1.025); Urine Blood Negative (Negative); Urine Ketones Negative (Negative); Urine Protein Negative (Neg-Trace)
[2023-02-21 22:11] LABS: Amphetamine Screen Urine Not Detected (Not Detect); Barbiturates, Urine Not Detected (Not Detect); Benzodiazepines Screen Urine Not Detected (Not Detect); Cannabinoid Screen Urine Not Detected (Not Detect); Cocaine Screen Urine Not Detected (Not Detect); Fentanyl, urine Not Detected (Not Detect); Opiate Screen Urine Not Detected (Not Detect); Phencyclidine Screen Urine Not Detected (Not Detect)
--- NOTE | 2023-02-21 22:32 | PC.NURSE ---
called pharm for med rec consult order, per pharm no longer doing med recs as of 2300 until tomorrow morning
--- NOTE | 2023-02-21 22:41 | PC.NURSE ---
med rec completed
[2023-02-21 22:43] VITALS: BP 133/87; PULSE 72; RESP 17; TEMP 36.4; O2SAT 93
[2023-02-22 00:44] VITALS: BP 125/78; PULSE 75; RESP 15; O2SAT 92
[2023-02-22 02:50] VITALS: BP 125/78; PULSE 82; RESP 18; O2SAT 99
--- NOTE | 2023-02-22 05:03 | PC.NURSE ---
report given to MICHAEL Engel
--- NOTE | 2023-02-22 05:45 | PC.NURSE ---
Patient just got transferred from main ED, medically, labs completed/resulted, behavior non concerning, patient is developmentally delayed with associate director career services at home, med rec completed pending provider's approval, care consult ordered pending care team evaluation, VSS, labs completed/resulted, will continue to monitor.
[2023-02-22 08:21] VITALS: BP 144/94; PULSE 82; RESP 16; TEMP 37.1; O2SAT 99
--- NOTE | 2023-02-22 08:21 | PHA.MEDREC ---
Pharmacy Consult ? Medication Reconciliation Pharmacy has completed the medication reconciliation. cOMPLETED BY RN INCORRECTLY. SPOKE TO CAREGIVER SHANIQUE WELSH, CHANGED CITALOPRAM FROM 10MG TO 30MG, LAMICTAL 150MG BID TO 250 MG BID, AND THEN SEROQUEL FROM 100MG BID TO 150MG QAM, 50 AT 4PM, AND 100MG BEDTIME JONAH
[2023-02-22] MEDS: Escitalopram Oxalate 5 MG TABLET 15 MG PO (09:06)
[2023-02-22] MEDS: Acetaminophen 325 MG TABLET 650 MG PO (09:06)
[2023-02-22] MEDS: lamoTRIgine 100 MG TABLET 250 MG PO (09:07)
[2023-02-22] MEDS: QUEtiapine Fumarate 100 MG TABLET PO (09:07)
[2023-02-22] MEDS: Multivitamin TABLET 1 TAB PO (09:07)
[2023-02-22] MEDS: Ferrous Sulfate 324 MG TABLET.DR PO (09:07)
[2023-02-22] MEDS: QUEtiapine Fumarate 50 MG TABLET PO (09:57)
--- NOTE | 2023-02-22 10:45 | PC.NURSE ---
Pt Care Provider in from [facility].
== END 2023-02-22 11:44 | disposition home or self-care (01) ==
PROVIDERS: Physician Assistant Medical; Emergency Provider Emergency Medicine Emergency Medical Services; PCP Family Medicine
DX: F07.9 Unspecified personality and behavioral disorder due to known physiological condition (principal); G31.84 Mild cognitive impairment of uncertain or unknown etiology; F44.9 Dissociative and conversion disorder, unspecified; Z79.899 Other long term (current) drug therapy; F41.8 Other specified anxiety disorders; Z20.822 Contact with and (suspected) exposure to COVID-19
CPT/HCPCS: 36415; 70450; 80048; 80076; 80307; 81003; 83735; 85025; 87635; 99285

== ENCOUNTER 2023-04-13 09:32 | Emergency (ER) | payer MEDICARE, MEDICAID, SELFPAY ==
[2023-04-13 09:37] VITALS: BP 134/83; PULSE 94; RESP 20; TEMP 36.3; O2SAT 97; BMI 32.9
--- NOTE | 2023-04-13 11:04 | PC.NURSE ---
assumed care of pt 1100
--- NOTE | 2023-04-13 11:27 | ED.GENADULT ---
HPI - General Adult General Chief complaint: Upper Respiratory Symptoms Stated complaint: cant breath, sore throat, cough Time Seen by Provider: 04/13/23 09:56 History of Present Illness HPI narrative: patient complains of scratchy throat, some nasal congestion and a mild cough which started yesterday, she has no shortness of breath now but felt mild shortness of breath yesterday associated with coughing No chest pain no headache no dizziness no confusion no difficulty breathing or swallowing Related Data Home Medications Medication Instructions Recorded Confirmed clonazepam 0.5 mg tablet (Klonopin) 0.25 mg PO DAILY PRN Agitation 01/21/23 02/21/23 melatonin 3 mg tablet 3 mg PO BEDTIME 01/21/23 02/21/23 albuterol sulfate 90 mcg/actuation 2 puff inhalation Q6H PRN 01/22/23 02/21/23 aerosol inhaler Shortness Of Breath Or Wheezing docusate sodium 100 mg tablet 500 mg PO QAM 01/22/23 02/21/23 ferrous gluconate 324 mg (37.5 mg 324 mg PO DAILY 01/22/23 02/21/23 iron) tablet fiber 1 tab PO BID 01/22/23 02/21/23 multivitamin (Daily-Saira tablet) 1 tab PO QAM 01/22/23 02/21/23 polyethylene glycol 3350 17 17 g PO DAILY PRN Constipation 01/22/23 02/21/23 gram/dose oral powder (Miralax) citalopram 10 mg tablet 30 mg PO DAILY 02/21/23 02/22/23 lamotrigine 150 mg tablet 150 mg PO BID 02/21/23 02/21/23 quetiapine 100 mg tablet 100 mg PO BID 02/21/23 02/21/23 solifenacin 10 mg tablet 10 mg PO DAILY 02/21/23 02/21/23 trazodone 50 mg tablet 50 mg PO BEDTIME 02/21/23 02/21/23 lamotrigine 100 mg tablet 100 mg PO BID 02/22/23 02/22/23 quetiapine 50 mg tablet 50 mg PO BID@0900,1600 02/22/23 02/22/23 Previous Rx's Medication Instructions Recorded cetirizine 10 mg tablet 10 mg PO DAILY PRN allergy 04/13/23 symptoms #14 tabs Allergies Allergy/AdvReac Type Severity Reaction Status Date / Time levetiracetam [From [facility]] Allergy Unknown UNKNOWN Verified 01/21/23 23:50 [facility] Past Medical History Source: nursing notes reviewed Medical History (Updated 04/13/23 @ 11:33 by HIRAM Elizondo) Chronic constipation Conversion disorder Depression with anxiety Mild persistent asthma Obesity Overactive bladder Psychogenic nonepileptic seizure Unspecified psychosis Social History Social History Alcohol intake: never Patient Tobacco Use Status: Never used Tobacco Advance Directives: No service: No Current occupational status: disabled Physical Exam ED Vital Signs: Vital Signs - 24 hr 04/13/23 09:37 Temperature 97.4 F Pulse Rate 94 Respiratory Rate 20 Blood Pressure 134/83 Pulse Oximetry 97 Oxygen Delivery Method Room Air BMI result Body Mass Index 32.9 general appearance comfortable no distress The eyes no redness or discharge The sinuses no tenderness The pharynx is clear no redness swelling or exudate, voice is normal Neck is supple Chest clear to auscultation bilateral full symmetric equal breath sounds no wheezing Heart no murmur Abdomen soft nontender Extremities range of motion x4 Skin no rash Course Course Course Narrative: chest x-ray was normal, COVID and flu tests were negative, patient remains well appearing breathing easily swallowing easily no sign of any dangerous or significant illness and is discharged It is possible she is having allergic reaction to pollen or the smoke in the air, or possibly of viral URI Medical Decision Making Lab Data Labs: Lab Results 04/13/23 04/13/23 Range/Units 09:42 09:43 Influenza Type A (PCR) NEGATIVE (Negative) Influenza Type B (PCR) NEGATIVE (Negative) RSV RNA Qual (PCR) NEGATIVE (Negative) SARS-CoV-2 RNA (RT-PCR) NEGATIVE (Negative) S. pyogenes GrpA SAQIB Negative (Negative) Discharge Plan Discharge Clinical Impression: Viral URI, Allergy Patient Disposition: Home, Self-Care Additional Instructions: chest x-ray was normal, COVID and strep tests were negative Her exam was very normal, no sign of any dangerous or serious illness It is likely this is an allergic reaction to smoke or pollen, but possible it is a cold Uses Zyrtec once a day, we gave 1 dose of steroid here in the emergency room Return any time any worse condition or any concerns Prescriptions: New cetirizine 10 mg tablet 10 mg PO DAILY PRN (Reason: allergy symptoms) Qty: 14 0RF No Action lamotrigine 150 mg tablet 150 mg PO BID trazodone 50 mg tablet 50 mg PO BEDTIME citalopram 10 mg tablet 30 mg PO DAILY quetiapine 100 mg tablet 100 mg PO BID solifenacin 10 mg tablet 10 mg PO DAILY lamotrigine 100 mg tablet 100 mg PO BID quetiapine 50 mg tablet 50 mg PO BID@0900,1600 clonazepam [Klonopin] 0.5 mg tablet 0.25 mg PO DAILY PRN (Reason: Agitation) melatonin 3 mg tablet 3 mg PO BEDTIME multivitamin [Daily-Saira] Tablet 1 tab PO QAM polyethylene glycol 3350 [Miralax] 17 gram/dose Powder 17 g PO DAILY PRN (Reason: Constipation) albuterol sulfate 90 mcg/actuation Hfa Aerosol Inhaler 2 puff INHALATION Q6H PRN (Reason: Shortness Of Breath Or Wheezing) docusate sodium 100 mg Tablet 500 mg PO QAM fiber Tablet,Chewable 1 tab PO BID ferrous gluconate 324 mg (37.5 mg iron) Tablet 324 mg PO DAILY
--- NOTE | 2023-04-13 11:49 | PC.NURSE ---
pt medicated per DEC, pt sts that she took 10mg loratidine this AM, HIRAM Cid informed, loratidine d/c'd. Decadron given per order
== END 2023-04-13 11:51 | disposition home or self-care (01) ==
PROVIDERS: Emergency Provider Emergency Medicine Emergency Medical Services; PCP Family Medicine
DX: J06.9 Acute upper respiratory infection, unspecified (principal); T78.40XA Allergy, unspecified, initial encounter; X58.XXXA Exposure to other specified factors, initial encounter; R06.02 Shortness of breath; J02.9 Acute pharyngitis, unspecified; R05.9 Cough, unspecified; Z20.822 Contact with and (suspected) exposure to COVID-19; Z20.828 Contact with and (suspected) exposure to other viral communicable diseases
CPT/HCPCS: 0241U; 71046; 87651; 99282; 99283; J8540

== ENCOUNTER 2023-05-03 17:49 | Emergency (ER) | payer MEDICARE, MEDICAID, SELFPAY ==
--- NOTE | ~2023-05-03 | CT_ITS ---
EXAMINATION: CT ABDOMEN AND PELVIS WITHOUT CONTRAST CLINICAL INFORMATION: Abdominal pain, diarrhea COMPARISON: 01/22/2023 TECHNIQUE: Multidetector volumetric imaging was performed from the superior aspect of the liver through the pubic symphysis. Sagittal and coronal reformatted images were obtained on the technologist's workstation. This CT examination was performed using dose optimization techniques as appropriate, variously including the following: *Automated exposure control *Adjustment of mA and/or kV according to patient size (this includes techniques or standardized protocols for targeted exams where dose is matched to indication/reason for exam; i.e. extremities or head) *Use of iterative reconstruction technique DLP: 633 mGy-cm FINDINGS: LUNG BASES: The visualized lung bases are unremarkable. LIVER, GALLBLADDER, AND BILIARY TREE: The liver is normal in size, shape, and attenuation. No focal hepatic lesion or biliary ductal dilatation is identified on this noncontrast exam. Patient is status post cholecystectomy. PANCREAS: Unremarkable. SPLEEN: Unremarkable. ADRENAL GLANDS: Unremarkable. KIDNEYS AND URETERS: No hydronephrosis or obstructing calculus bilaterally. There is a 4 mm right upper pole renal calculus. BLADDER: Unremarkable. GASTROINTESTINAL TRACT: There is mild colonic diverticulosis. The small and large bowel are otherwise unremarkable without evidence of obstruction or pericolonic inflammatory change. The appendix is unremarkable. No free fluid or free air is seen. ABDOMINAL WALL: Redemonstrated bilateral paramedian abdominal wall catheters extending into the peritoneal cavity. The right-sided catheter again appears discontinuous. LYMPH NODES: There are multiple lymph nodes in the central abdominal mesentery with mild surrounding stranding, measuring up to nearly 1 cm in short axis dimension; these appear more prominent than on 01/22/2023. VASCULAR: Unremarkable. PELVIC VISCERA: Unremarkable. OSSEOUS STRUCTURES: Facet arthropathy at L4-L5. CT/CT abdomen pelvis wo IV con IMPRESSION: 1. Multiple lymph nodes in the central abdominal mesentery with mild surrounding stranding, more prominent than on 01/22/2023. This could be secondary to an infectious/inflammatory etiology, including sclerosing mesenteritis. 2. No acute bowel abnormality. 3. Redemonstrated bilateral paramedian abdominal wall catheters extending into the peritoneal cavity. The right-sided catheter again appears discontinuous. 4. Right upper pole 4 mm renal calculus without hydronephrosis.
--- NOTE | 2023-05-03 18:26 | ED_ITS ---
HPI - Nausea/Vomiting/Diarrhea General Chief complaint: Nausea/Vomiting/Diarrhea Stated complaint: Diarrhea/fever/anxious Time Seen by Provider: 05/03/23 23:58 Source: patient and other Mode of arrival: ambulatory History of Present Illness HPI Narrative: This is a 52-year-old female with multiple episodes of diarrhea and corresponding abdominal discomfort since this morning, reports of over 6 episodes of diarrhea with some mild nausea and low-grade fever. Patient does suffer from chronic headaches as she has nonfunctioning shunts. 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 Related Data Home Medications Medication Instructions Recorded Confirmed clonazepam 0.5 mg tablet (Klonopin) 0.25 mg PO DAILY PRN Agitation 01/21/23 02/21/23 melatonin 3 mg tablet 3 mg PO BEDTIME 01/21/23 02/21/23 albuterol sulfate 90 mcg/actuation 2 puff inhalation Q6H PRN 01/22/23 02/21/23 aerosol inhaler Shortness Of Breath Or Wheezing docusate sodium 100 mg tablet 500 mg PO QAM 01/22/23 02/21/23 ferrous gluconate 324 mg (37.5 mg 324 mg PO DAILY 01/22/23 02/21/23 iron) tablet fiber 1 tab PO BID 01/22/23 02/21/23 multivitamin (Daily-Saira tablet) 1 tab PO QAM 01/22/23 02/21/23 polyethylene glycol 3350 17 17 g PO DAILY PRN Constipation 01/22/23 02/21/23 gram/dose oral powder (Miralax) citalopram 10 mg tablet 30 mg PO DAILY 02/21/23 02/22/23 lamotrigine 150 mg tablet 150 mg PO BID 02/21/23 02/21/23 quetiapine 100 mg tablet 100 mg PO BID 02/21/23 02/21/23 solifenacin 10 mg tablet 10 mg PO DAILY 02/21/23 02/21/23 trazodone 50 mg tablet 50 mg PO BEDTIME 02/21/23 02/21/23 lamotrigine 100 mg tablet 100 mg PO BID 02/22/23 02/22/23 quetiapine 50 mg tablet 50 mg PO BID@0900,1600 02/22/23 02/22/23 Previous Rx's Medication Instructions Recorded cetirizine 10 mg tablet 10 mg PO DAILY PRN allergy 04/13/23 symptoms #14 tabs Allergies Allergy/AdvReac Type Severity Reaction Status Date / Time levetiracetam [From KEPPRA] Allergy Unknown UNKNOWN Verified 05/03/23 18:26 Review of Systems Review of Systems: Pertinent positives and negatives as stated in [facility] Past Medical History Source: nursing notes reviewed Medical History Chronic constipation Conversion disorder Depression with anxiety Mild persistent asthma Obesity Overactive bladder Psychogenic nonepileptic seizure Unspecified psychosis Social History Social History Alcohol intake: never Patient Tobacco Use Status: Never used Tobacco Smoked in Last 30 Days: No Use of substances other than those prescribed or required for medical reasons: No Advance Directives: No Advance Directives Information Provided: No Patient : No service: No Current occupational status: disabled Physical Exam Vital Signs: Vital Signs: Last Vital Signs Temp 99.5 F 05/03/23 23:34 Pulse 91 05/03/23 23:34 Resp 16 05/03/23 23:34 BP 132/87 05/03/23 23:34 Pulse Ox 96 05/03/23 23:34 O2 Del Method Room Air 05/03/23 23:34 BMI result Body Mass Index 34.9 VITAL SIGNS: Reviewed. GENERAL: Well developed, well nourished, in no acute distress. HEAD: Abnormal cranial shape/atraumatic EYES: PERRLA, EOMI EARS: Ext canals without abnormality NOSE: Nares patent bilateral OROPHARYNX: no oral lesions noted, posterior pharynx clear NECK: Supple, no adenopathy LUNGS: Normal breath sounds. No adventitious sounds or accessory muscle use. SpO2<96> CARDIOVASCULAR: Regular rate and rhythm without noted murmurs ABDOMEN: Soft, diffusely tender not peritonitic, non-distended with bowel sounds. MUSCULOSKELETAL: No tenderness, deformities, or effusions noted on gross inspection. EXTREMITIES: No cyanosis, clubbing or edema. SKIN: Inspection of the skin reveals no rashes NEUROLOGIC: Alert and oriented x 3. Strength and sensation to light touch were grossly intact x 4. Course Course Course Narrative: RME - 52 yo female presents to the ER for evaluation of multiple episodes of nonbloody diarrhea, abdominal pain, low grade fevers that started today along with dizziness and not feeling well. No nausea, vomiting or sick contacts. Plan: labs, UA, CT abd/pelvis Medications Administered Discontinued Medications Generic Name Dose Route Start Last Admin Trade Name Maren PRN Reason Stop Dose Admin Acetaminophen 975 mg 05/04/23 00:42 05/04/23 00:56 Acetaminophen 325 Mg Tablet PO 05/04/23 00:43 975 mg ONCE ONE Administration Dicyclomine HCl 10 mg 05/04/23 00:42 05/04/23 00:56 Dicyclomine Hcl 10 Mg Capsule PO 05/04/23 00:43 10 mg ONCE ONE Administration Medical Decision Making Medical Decision Making [facility] Narrative: 0035: 52-year-old female with history and clinical presentation, DDX: Viral gastroenteritis, food poisoning, UTI, less likely felt to be diverticulitis/appendicitis/SBO. Patient has had no bowel movements since 0. I have reviewed all investigations and the hematologic indices are without acute derangements, there is no leukocytosis there is small left shift, no anemia or thrombocytopenia. Chemistry indices are grossly within normal limits without evidence of NICOL, electrolyte derangements or liver enzyme abnormalities. CT scan negative for appendicitis, diverticulitis, otherwise my interpretation is in agreement with radiology's impression multiple lymph nodes with surrounding stranding which are more prominent than on prior imaging study on . One of the differentials posed by the radiologist is a possibility of sclerosing mesenteritis, this will be communicated to the guardian at the bedside as well as the patient as she does have an OBGYN appointment today, 05/04, at 10:00. Urinalysis negative for UTI or hematuria. Differential Diagnosis Differential Diagnoses: The differential diagnosis associated with the presentation includes Please see the discussion above Admission/Observation Consideration of admission/observation: Escalation of care including admission/observation considered Please see the discussion above Lab Data MDM Lab Attestation statement: I reviewed the patient's lab results. Please see the discussion above 05/03/23 19:05 05/03/23 19:05 Labs: Lab Results 05/03/23 05/03/23 05/04/23 Range/Units 19:05 19:05 00:46 WBC 9.2 (4.8-10.8) X10*3/uL RBC 4.45 (4.20-5.50) X10*6/uL Hgb 13.6 (12.0-16.0) g/dl Hct 41.7 (37.0-47.0) % MCV 93.7 (80.0-98.0) fL MCH 30.6 (27.0-33.0) pg MCHC 32.6 (31.0-35.0) g/dl RDW 13.1 (11.0-16.0) % Plt Count 196 (160-400) X10*3/uL MPV 9.3 L (9.4-12.3) fL Immature Gran % (Auto) 0.3 (0.0-0.4) % Neut % (Auto) 78.8 H (45-73) % Lymph % (Auto) 11.7 L (20-40) % Rice % (Auto) 5.3 (2-11) % Eos % (Auto) 3.7 (0-4) % Baso % (Auto) 0.2 (0-2) % Lymph # (Auto) 1.1 L (1.2-4.9) X10*3/uL Rice # (Auto) 0.5 (0.1-1.2) X10*3/uL Eos # (Auto) 0.3 (0.0-0.4) X10*3/uL Baso # (Auto) 0.0 (0.0-0.2) X10*3/uL Abs Immat Gran (auto) 0.03 (0.00-0.03) X10*3/uL Absolute Neuts (auto) 7.2 (2.0-8.3) x10*3/uL Absolute Nucleated RBC 0.000 (0.0-0.012) X10*3/uL Nucleated RBC % (auto) 0.0 (0.0-0.2) /100WBC Sodium 137 (135-145) mmol/L Potassium 4.1 (3.3-5.1) mmol/L Chloride 101 (96-108) mmol/L Carbon Dioxide 24 (22-29) mmol/L Anion Gap 16 (12-20) BUN 17 H (9-16) mg/dL Creatinine 0.82 (0.5-1.4) mg/dL Estim Creat Clear Calc 80.6 Estimated GFR > 60 Random Glucose 107 (60-115) mg/dL Calcium 9.3 (8.4-10.2) mg/dL Magnesium 1.8 (1.6-2.6) mg/dL Total Bilirubin 0.3 (0.0-1.0) mg/dL Direct Bilirubin 0.2 (0.0-0.5) mg/dL AST 15 (5-31) U/L ALT 19 (0-31) U/L Alkaline Phosphatase 109 (39-117) U/L Total Protein 7.6 (6.5-8.0) g/dL Albumin 3.9 (3.5-5.0) g/dL Lipase 16 (8-78) U/L Urine Color Yellow Urine Appearance Clear Urine pH 7.5 (5.0-9.0) Ur Specific [place] <= 1.005 (1.005-1.025) Urine Protein Negative (Neg-Trace) mg/dL Urine Glucose (UA) Negative (Negative) mg/dL Urine Ketones Negative (Negative) mg/dL Urine Blood Negative (Negative) Urine Nitrite Negative (Negative) Ur Leukocyte Esterase Negative (Negative) Radiology Impression Radiologist Impression: No appendicitis/renal colic/diverticulitis/SBO, otherwise my interpretation is in agreement with radiology's impression. External Record Review External record reviewed: Outpatient record and Prior outpatient labs Discharge Plan Discharge Clinical Impression: Diarrhea, Abdominal discomfort, Intra-abdominal lymphadenopathy Patient Disposition: Home, Self-Care Instructions: Lymphadenopathy (ED), Acute Diarrhea (ED), Abdominal Pain (ED), Nutrition Tips for Relief of Diarrhea (ED) Additional Instructions: 1. Resume all home medications as prescribed except medications for constipation as these will worsen your diarrhea. 2. The radiologist identified intra-abdominal lymph nodes and suggest that there is a possibility of sclerosing mesenteritis, this should be discussed with your OBGYN at your scheduled appointment this morning. 3. Please follow-up with your primary care provider at your earliest convenience as well. Return to the ER for any worsening symptoms. Prescriptions: No Action lamotrigine 150 mg tablet 150 mg PO BID trazodone 50 mg tablet 50 mg PO BEDTIME citalopram 10 mg tablet 30 mg PO DAILY quetiapine 100 mg tablet 100 mg PO BID solifenacin 10 mg tablet 10 mg PO DAILY lamotrigine 100 mg tablet 100 mg PO BID quetiapine 50 mg tablet 50 mg PO BID@0900,1600 cetirizine 10 mg tablet 10 mg PO DAILY PRN (Reason: allergy symptoms) Qty: 14 0RF clonazepam [Klonopin] 0.5 mg tablet 0.25 mg PO DAILY PRN (Reason: Agitation) melatonin 3 mg tablet 3 mg PO BEDTIME multivitamin [Daily-Saira] Tablet 1 tab PO QAM polyethylene glycol 3350 [Miralax] 17 gram/dose Powder 17 g PO DAILY PRN (Reason: Constipation) albuterol sulfate 90 mcg/actuation Hfa Aerosol Inhaler 2 puff INHALATION Q6H PRN (Reason: Shortness Of Breath Or Wheezing) docusate sodium 100 mg Tablet 500 mg PO QAM fiber Tablet,Chewable 1 tab PO BID ferrous gluconate 324 mg (37.5 mg iron) Tablet 324 mg PO DAILY Referrals: Cristin Nuñez MD [Primary Care Provider] -
[2023-05-03 18:27] VITALS: BP 111/77; PULSE 85; RESP 16; TEMP 36.6; O2SAT 99; BMI 34.9
[2023-05-03 19:10] LABS: MANUAL DIFF FLAG NO
[2023-05-03 19:14] LABS: Basophils Percent Auto 0.2 % (0-2); Eosinophils Absolute Auto 0.3 X10*3/uL (0.0-0.4); Eosinophils Percent Auto 3.7 % (0-4); Hematocrit 41.7 % (37.0-47.0); Hemoglobin 13.6 g/dl (12.0-16.0); Imm Gran Abs Auto 0.03 X10*3/uL (0.00-0.03); Imm Gran Pct Auto 0.3 % (0.0-0.4); Lymphocytes Absolute Auto 1.1 X10*3/uL (1.2-4.9); Lymphocytes Percent Auto 11.7 % (20-40); Mean Corpuscular HGB Conc 32.6 g/dl (31.0-35.0); Mean Corpuscular Hemoglobin 30.6 pg (27.0-33.0); Mean Corpuscular Volume 93.7 fL (80.0-98.0); Mean Platelet Volume 9.3 fL (9.4-12.3); Monocytes Absolute Auto 0.5 X10*3/uL (0.1-1.2); Monocytes Percent Auto 5.3 % (2-11); Neutrophils Absolute Auto 7.2 x10*3/uL (2.0-8.3); Neutrophils Percent Auto 78.8 % (45-73); Platelet Count 196 X10*3/uL (160-400); Red Blood Count 4.45 X10*6/uL (4.20-5.50); Red Cell Distribution Width 13.1 % (11.0-16.0); White Blood Count 9.2 X10*3/uL (4.8-10.8)
[2023-05-03 19:30] LABS: Alanine Aminotransferase 19 U/L (0-31); Albumin Level 3.9 g/dL (3.5-5.0); Alkaline Phosphatase 109 U/L (39-117); Anion Gap 16 (12-20); Aspartate Amino Transferase 15 U/L (5-31); Bilirubin Direct 0.2 mg/dL (0.0-0.5); Bilirubin Total 0.3 mg/dL (0.0-1.0); Blood Urea Nitrogen 17 mg/dL (9-16); Calcium 9.3 mg/dL (8.4-10.2); Carbon Dioxide 24 mmol/L (22-29); Chloride 101 mmol/L (96-108); Creatinine Clr Calc Pharmacy 80.6; Estimated Glomerular Filt Rate > 60; Glucose Random 107 mg/dL (60-115); Lipase 16 U/L (8-78); Magnesium 1.8 mg/dL (1.6-2.6); Potassium 4.1 mmol/L (3.3-5.1); Sodium 137 mmol/L (135-145); Total Protein 7.6 g/dL (6.5-8.0)
[2023-05-03 23:34] VITALS: BP 132/87; PULSE 91; RESP 16; TEMP 37.5; O2SAT 96
--- NOTE | 2023-05-03 23:39 | PC.NURSE ---
Pt A&Ox3, reports 9/10 constant all over ABD pain starting today. Denies N/V, denies symptoms, reports diarrhea. ABD tender to touch x 4 quadrants, + bowel sounds x 4. Denies any sick contact.
[2023-05-04] MEDS: Dicyclomine HCl 10 MG CAPSULE PO (00:56)
[2023-05-04] MEDS: Acetaminophen 325 MG TABLET 975 MG PO (00:56)
[2023-05-04 00:58] LABS: Appearance Urine Clear; Color Urine Yellow; Glucose Urine UA Negative (Negative); Leukocyte Esterase Urine Negative (Negative); Nitrite Urine Negative (Negative); PH 7.5 (5.0-9.0); Specific Gravity - Urine <= 1.005 (1.005-1.025); Urine Blood Negative (Negative); Urine Ketones Negative (Negative); Urine Protein Negative (Neg-Trace)
== END 2023-05-04 01:31 | disposition home or self-care (01) ==
PROVIDERS: Physician Assistant; Emergency Provider Student in an Organized Health Care Education/Training Program; PCP Family Medicine
DX: R19.7 Diarrhea, unspecified (principal); R10.9 Unspecified abdominal pain; R59.1 Generalized enlarged lymph nodes
CPT/HCPCS: 36415; 74176; 80048; 80076; 81003; 83690; 83735; 85025; 99284

== ENCOUNTER 2023-05-24 12:00 | Emergency (ER) | payer MEDICARE, MEDICAID, SELFPAY ==
--- NOTE | ~2023-05-24 | CT_ITS ---
EXAMINATION: CTA OF THE HEAD AND NECK WITH CONTRAST CT OF THE HEAD WITHOUT CONTRAST CLINICAL INFORMATION: Left-sided weakness and seizure-like activity. Altered mental status. Reported falls. COMPARISON: Head CT from 02/21/2023. TECHNIQUE: Noncontrast imaging of the head initially acquired. Test bolus sequences followed by intravenous administration 70 mL of Omnipaque 350. Helical imaging was performed in the axial plane from the mediastinum to the skull vertex. Delayed postcontrast imaging of the head was also performed. The data was processed at the health information technologist's workstation for generation of MIP sequences. Three-dimensional volume rendered reformatted images were also generated at an offline 3-D workstation. Stenoses are assessed in accordance with NASCET criteria unless otherwise indicated. Limited study with motion artifacts. This CT examination was performed using dose optimization techniques as appropriate, variously including the following: *Automated exposure control *Adjustment of mA and/or kV according to patient size (this includes techniques or standardized protocols for targeted exams where dose is matched to indication/reason for exam; i.e. extremities or head) *Use of iterative reconstruction technique DLP: 751, 1527 mGy-cm FINDINGS: CT HEAD: There is an acute subdural hematoma along the right cerebral convexity which measures up to 1 cm in transverse dimension, impressing upon the underlying brain parenchyma. A mild amount of subarachnoid hemorrhage is also visible. No vasogenic edema is seen within the underlying brain tissue. There are some trace acute to subacute blood products in the extra-axial space along the left parietal convexity as well. There are small areas of acute hemorrhage in the anterior left frontal lobe with mild surrounding vasogenic edema. A small focus of acute parenchymal blood is also visible in the left temporal operculum. A subcentimeter focus of acute hemorrhage is noted in the left external capsule. Dolichocephaly again visible. A right parietal approach YOUTH NUTRITIONAL MONITOR shunt catheter is in place terminating in the region of the left caudothalamic groove, otherwise unchanged in position. A mild amount of calcification is visible around the catheter tip. A left parietal-occipital approach YOUTH NUTRITIONAL MONITOR shunt catheter is also again visible with the tip of the catheter in the medial aspect of the left lateral ventricular atrium. When compared to the 02/21/2023 study, the frontal horns and bodies of the lateral ventricles are decreased in size. The trigone and occipital horn of the left lateral ventricle are further decompressed and small in appearance. The right occipital horn is unchanged in morphology. The third and fourth ventricles are unchanged. Chronic dural-based calcifications are again visible. A patulous appearance of the trigones and occipital horns of the lateral ventricles presumably reflects colpocephaly from parenchymal volume loss. Prominence of the cerebral sulci in the frontoparietal lobes with parenchymal volume loss again evident. Mild dural-based enhancement is also noted along the frontoparietal convexities which may be due to chronic shunting. There is a new 2 x 0.8 x 1.3 cm ovoid soft tissue lesion in the medial extraconal fat of the postseptal right orbit which distorts and deviates the medial rectus musculature. No adjacent bony erosive changes are seen. The remaining intraocular structures appear normal. There is no evidence of an acute territorial infarction. No midline shift is seen. The remaining osseous structures and soft tissues are normal. The mastoid air cells are clear. There is mild right sphenoethmoid mucosal thickening. There are mild degenerative changes in the condylar head of the right temporomandibular joint. CTA NECK: The imaged aortic arch and origins of the great vessels are normal. The common carotid arteries are widely patent. The carotid bifurcations are normal. The cervical internal carotid arteries are normal. The vertebral arteries opacify normally and are of normal caliber. Moderate multilevel cervical spondylosis noted. There is a leftward curvature of the cervical spine. There are patchy areas of airspace consolidation within the upper lobes bilaterally. There is a 1 x 1.2 cm low-attenuation lesion with areas of calcification arising from the posterior right thyroid lobe. Based on imaging size and criteria, no further imaging follow-up is indicated. CTA HEAD: The intradural vertebral arteries and basilar artery are normal. The posterior cerebral arteries are widely patent. The internal carotid arteries are of normal caliber. The RASHIDA and MCA vascular complexes bilaterally are normal. The venous sinuses opacify normally. CT/CT head for stroke IMPRESSION: Limited study with motion artifacts. No hemodynamically significant stenosis or occlusion in the cervical or intracranial vasculature at the level of the pala of [place]. Acute right cerebral convexity subdural hematoma measuring up to 1 cm in short axis dimension with mild mass effect upon the underlying brain parenchyma. No midline shift of structures. Mild amount of scattered subarachnoid blood products as well. Small areas of hemorrhage in the brain parenchyma in the left cerebral hemisphere may reflect axonal shearing injury in the correct clinical setting. Decrease in size of the frontal horns and bodies of the lateral ventricles. Additional decrease in size of the trigone and occipital horn of the left lateral ventricle compared to the prior exam. Patulous appearance of the right occipital horn remains unchanged. Recommend correlation with shunt function and settings. Mild pachymeningeal enhancement may be due to chronic shunting. Dural-based calcifications. Dolichocephaly and imaging stigmata of a known Chiari malformation. New indeterminate 2 x 0.8 x 1.3 cm ovoid soft tissue lesion in the medial extraconal fat of the postseptal right orbit distorting the medial rectus muscle. Imaging findings are entirely nonspecific and may reflect a venous varix or possibly a nerve sheath tumor. Metastatic disease or lymphoma could have a similar imaging appearance. Patchy areas of airspace consolidation in the lungs which may be due to atelectasis, however, aspiration or developing pneumonia cannot be ruled out. Imaging findings reported to Dr. Dennis at 1:47 PM on 05/24/2023.
--- NOTE | ~2023-05-24 | CT_ITS ---
EXAMINATION: CTA OF THE HEAD AND NECK WITH CONTRAST CT OF THE HEAD WITHOUT CONTRAST CLINICAL INFORMATION: Left-sided weakness and seizure-like activity. Altered mental status. Reported falls. COMPARISON: Head CT from 02/21/2023. TECHNIQUE: Noncontrast imaging of the head initially acquired. Test bolus sequences followed by intravenous administration 70 mL of Omnipaque 350. Helical imaging was performed in the axial plane from the mediastinum to the skull vertex. Delayed postcontrast imaging of the head was also performed. The data was processed at the soil technologist's workstation for generation of MIP sequences. Three-dimensional volume rendered reformatted images were also generated at an offline 3-D workstation. Stenoses are assessed in accordance with NASCET criteria unless otherwise indicated. Limited study with motion artifacts. This CT examination was performed using dose optimization techniques as appropriate, variously including the following: *Automated exposure control *Adjustment of mA and/or kV according to patient size (this includes techniques or standardized protocols for targeted exams where dose is matched to indication/reason for exam; i.e. extremities or head) *Use of iterative reconstruction technique DLP: 751, 1527 mGy-cm FINDINGS: CT HEAD: There is an acute subdural hematoma along the right cerebral convexity which measures up to 1 cm in transverse dimension, impressing upon the underlying brain parenchyma. A mild amount of subarachnoid hemorrhage is also visible. No vasogenic edema is seen within the underlying brain tissue. There are some trace acute to subacute blood products in the extra-axial space along the left parietal convexity as well. There are small areas of acute hemorrhage in the anterior left frontal lobe with mild surrounding vasogenic edema. A small focus of acute parenchymal blood is also visible in the left temporal operculum. A subcentimeter focus of acute hemorrhage is noted in the left external capsule. Dolichocephaly again visible. A right parietal approach [employer] shunt catheter is in place terminating in the region of the left caudothalamic groove, otherwise unchanged in position. A mild amount of calcification is visible around the catheter tip. A left parietal-occipital approach [employer] shunt catheter is also again visible with the tip of the catheter in the medial aspect of the left lateral ventricular atrium. When compared to the 02/21/2023 study, the frontal horns and bodies of the lateral ventricles are decreased in size. The trigone and occipital horn of the left lateral ventricle are further decompressed and small in appearance. The right occipital horn is unchanged in morphology. The third and fourth ventricles are unchanged. Chronic dural-based calcifications are again visible. A patulous appearance of the trigones and occipital horns of the lateral ventricles presumably reflects colpocephaly from parenchymal volume loss. Prominence of the cerebral sulci in the frontoparietal lobes with parenchymal volume loss again evident. Mild dural-based enhancement is also noted along the frontoparietal convexities which may be due to chronic shunting. There is a new 2 x 0.8 x 1.3 cm ovoid soft tissue lesion in the medial extraconal fat of the postseptal right orbit which distorts and deviates the medial rectus musculature. No adjacent bony erosive changes are seen. The remaining intraocular structures appear normal. There is no evidence of an acute territorial infarction. No midline shift is seen. The remaining osseous structures and soft tissues are normal. The mastoid air cells are clear. There is mild right sphenoethmoid mucosal thickening. There are mild degenerative changes in the condylar head of the right temporomandibular joint. CTA NECK: The imaged aortic arch and origins of the great vessels are normal. The common carotid arteries are widely patent. The carotid bifurcations are normal. The cervical internal carotid arteries are normal. The vertebral arteries opacify normally and are of normal caliber. Moderate multilevel cervical spondylosis noted. There is a leftward curvature of the cervical spine. There are patchy areas of airspace consolidation within the upper lobes bilaterally. There is a 1 x 1.2 cm low-attenuation lesion with areas of calcification arising from the posterior right thyroid lobe. Based on imaging size and criteria, no further imaging follow-up is indicated. CTA HEAD: The intradural vertebral arteries and basilar artery are normal. The posterior cerebral arteries are widely patent. The internal carotid arteries are of normal caliber. The RASHIDA and MCA vascular complexes bilaterally are normal. The venous sinuses opacify normally. CT/CT angio head neck stroke IMPRESSION: Limited study with motion artifacts. No hemodynamically significant stenosis or occlusion in the cervical or intracranial vasculature at the level of the [place]. Acute right cerebral convexity subdural hematoma measuring up to 1 cm in short axis dimension with mild mass effect upon the underlying brain parenchyma. No midline shift of structures. Mild amount of scattered subarachnoid blood products as well. Small areas of hemorrhage in the brain parenchyma in the left cerebral hemisphere may reflect axonal shearing injury in the correct clinical setting. Decrease in size of the frontal horns and bodies of the lateral ventricles. Additional decrease in size of the trigone and occipital horn of the left lateral ventricle compared to the prior exam. Patulous appearance of the right occipital horn remains unchanged. Recommend correlation with shunt function and settings. Mild pachymeningeal enhancement may be due to chronic shunting. Dural-based calcifications. Dolichocephaly and imaging stigmata of a known Chiari malformation. New indeterminate 2 x 0.8 x 1.3 cm ovoid soft tissue lesion in the medial extraconal fat of the postseptal right orbit distorting the medial rectus muscle. Imaging findings are entirely nonspecific and may reflect a venous varix or possibly a nerve sheath tumor. Metastatic disease or lymphoma could have a similar imaging appearance. Patchy areas of airspace consolidation in the lungs which may be due to atelectasis, however, aspiration or developing pneumonia cannot be ruled out. Imaging findings reported to Dr. Dennis at 1:47 PM on 05/24/2023.
--- NOTE | 2023-05-24 12:05 | ECG_ITS ---
Test Reason : ? Stroke Blood Pressure : / mmHG Vent. Rate : 081 BPM Atrial Rate : 081 BPM P-R Int : 190 ms QRS Dur : 094 ms QT Int : 402 ms P-R-T Axes : 070 -06 000 degrees QTc Int : 466 ms Normal sinus rhythm Low voltage QRS Borderline ECG When compared with ECG of 21-JAN-2023 18:12, QRS duration has increased Referred By: Karyna Dennis Electronically Signed By:TILA ASH
[2023-05-24 12:09] LABS: Prothrombin Time Whole Bld POC 12.2 sec (11.1-13.5)
--- NOTE | 2023-05-24 12:10 | ED_ITS ---
HPI - Neuro Symptoms/Deficit General Chief Complaint: Stroke Stated Complaint: Fall, SOB, increased weakness per EMS Source: EMS, old records reviewed and other (sales and retail management recruiter) Mode of arrival: EMS Limitations: altered mental status History of Present Illness HPI Narrative: 53 with PMH of seizure, conversion disorder, syncope, LINE MECHANIC shunt migraines just seen at [facility] on Monday - negative CT scan after a fall was sent home and has had a headache since then. She has been able to take her medications but hasn't eaten much and then today she has a terrible headache. She fell today - needed to be fully dressed which is unusual, sales and retail management recruiter found her outside the bathroom on the floor but not a prolonged downtime patient was trying to get out of the bathroom not using her walker. Patient was confused but no known LOC. EMS notes she was at baseline when they arrived - they pick her up frequently en route she became more altered and they felt she had a L sided weakness and facial droop - she then started to have eye fluttering and drooling. She was given 5mg IM versed which caused hypoxia and sedation en route and she needed to be bagged after the medications though we switched her to NC quickly. On arrival to the ED she is somnolent but no seizure activity noted - stroke alert started after airway assessment done. She is not on blood thinners. Onset (ago): minute(s) (fall x 2 in two days with head strike, weakness/seizure x 30 minutes ) Timing confirmed by: caregiver Location: left face, left arm and left leg History of same: Yes Severity: severe Quality: weak Relieving factors: none Exacerbating factors: none Context: sudden onset and recent fall On Anticoagulants: No Associated symptoms: seizures Treatments Prior to Arrival: other (5mg IM versed) Related Data Home Medications Medication Instructions Recorded Confirmed clonazepam 0.5 mg tablet (Klonopin) 0.25 mg PO DAILY PRN Agitation 01/21/23 02/21/23 melatonin 3 mg tablet 3 mg PO BEDTIME 01/21/23 02/21/23 albuterol sulfate 90 mcg/actuation 2 puff inhalation Q6H PRN 01/22/23 02/21/23 aerosol inhaler Shortness Of Breath Or Wheezing docusate sodium 100 mg tablet 500 mg PO QAM 01/22/23 02/21/23 ferrous gluconate 324 mg (37.5 mg 324 mg PO DAILY 01/22/23 02/21/23 iron) tablet fiber 1 tab PO BID 01/22/23 02/21/23 multivitamin (Daily-Saira tablet) 1 tab PO QAM 01/22/23 02/21/23 polyethylene glycol 3350 17 17 g PO DAILY PRN Constipation 01/22/23 02/21/23 gram/dose oral powder (Miralax) citalopram 10 mg tablet 30 mg PO DAILY 02/21/23 02/22/23 lamotrigine 150 mg tablet 150 mg PO BID 02/21/23 02/21/23 quetiapine 100 mg tablet 100 mg PO BID 02/21/23 02/21/23 solifenacin 10 mg tablet 10 mg PO DAILY 02/21/23 02/21/23 trazodone 50 mg tablet 50 mg PO BEDTIME 02/21/23 02/21/23 lamotrigine 100 mg tablet 100 mg PO BID 02/22/23 02/22/23 quetiapine 50 mg tablet 50 mg PO BID@0900,1600 02/22/23 02/22/23 Previous Rx's Medication Instructions Recorded cetirizine 10 mg tablet 10 mg PO DAILY PRN allergy 04/13/23 symptoms #14 tabs Allergies Allergy/AdvReac Type Severity Reaction Status Date / Time levetiracetam [From [facility]] Allergy Unknown UNKNOWN Verified 05/03/23 18:26 Review of Systems Review of Systems: ROS unable to be obtained due to altered mental status [facility] Past Medical History Attestation statement: The following information was validated with the patient. Medical History Chronic constipation Conversion disorder Depression with anxiety Mild persistent asthma Obesity Overactive bladder Psychogenic nonepileptic seizure Unspecified psychosis Social History Social History Alcohol intake: never Patient Tobacco Use Status: Never used Tobacco Advance Directives: No Advance Directives Information Provided: No service: No Current occupational status: disabled Physical Exam Vital Signs: Vital Signs: Last Vital Signs Pulse 74 05/24/23 13:09 Resp 16 05/24/23 13:09 BP 112/81 05/24/23 13:09 Pulse Ox 98 05/24/23 13:09 O2 Del Method Nasal Cannula 05/24/23 13:09 O2 Flow Rate 2 05/24/23 13:09 Oxygen Flow Rate 15 05/24/23 12:49 BMI result Body Mass Index 29.5 Appearance: Somnolent and snoring Moderate acute distress. suspect medications as cause Eyes: Pupils equal, round and reactive to light. no fixed gaze no nystagmus noted ENT: Pharynx normal. NRB on Neck: Normal inspection. Neck supple. CVS: Normal heart rate and rhythm. Pulses normal. Respiratory: No respiratory distress. Breath sounds normal. snoring Abdomen: Soft and non-tender. Skin: Skin warm and dry. Normal skin color. Normal skin turgor. Extremities: No lower extremity edema. No calf ttp Neuro: somnolent and cannot participate in exam. GCS 10 Course Course Course Narrative: calls to radiology for final read - ?ICH on CT scan Reevaluation(s) Reevaluation #1: patient is starting to wake up she is moving R side and starting to move her L side though less she is starting to follow commands Reevaluation #2: repeat call to radiology - moving L side more, trying to talk but unable to Reevaluation #3: call from Radiology 144pm SDH - R sided 1cm, no midline shift or edema scattered SAH on both convexities small IPH bilaterally no skull fractures LINE MECHANIC shunt lateral ventricles are decreased are size from prior scans 2cm ovoid lesion R orbit ?venous varix or nerve sheath tumor CTA negative no LVO Additional Reevaluation(s): on DC she was answering to her name and opening eyes - moving extremities but still not at baseline and confused Consultations Consultation #1: call to [facility] 147pm Consultation #2: accepted to [facility] Category [address] Tai Medications Administered Discontinued Medications Generic Name Dose Route Start Last Admin Trade Name Freq PRN Reason Stop Dose Admin Iohexol 70 ml 05/24/23 12:36 05/24/23 12:37 Iohexol 350 Mg/Ml 100 Ml Infus..Btl IV 05/24/23 12:37 70 ml ONCE ONE Administration Medical Decision Making Medical Decision Making MDM Narrative: 53 with PMH of seizure, conversion disorder, syncope, LINE MECHANIC shunt migraines NIH is 12 but please note it is so high due to 5mg of IM versed en route so it is not reliable. Patient presents after 2 falls with worsening mentation just had normal CT scan on Monday after head strike but has no been the same per sales and retail management recruiter. Fell again this AM and when found was not herself. EMS noted she had no deficits until en route when they felt she had L sided weakness and possible twitching of eyes and drooling so she was given 5mg of versed she is now somnolent and cannot perform any neurologic exam - she was sent over for STAT stroke CT head and CTA with labs and EKG. she is able to cough and protect her airway but we are watching her closely. I did call her sales and retail management recruiter. I am not sure if this a stroke vs ICH vs seizure. I have consulted neurology and given history and trauma x 2 with poor timeline and inability to perform exam she is a not a candidate for tPa as I have a concern for ICH. both sales and retail management recruiter and mom aware and mom gives permission for healthcare provider Isai to sign for patient and perform all interventions to help the patient. Differential Diagnosis Differential Diagnoses: The differential diagnosis associated with the presentation includes seizure, stroke, medication reaction, ICH Admission/Observation Consideration of admission/observation: Escalation of care including admission/observation considered Lab Data [facility] Lab Attestation statement: I reviewed the patient's lab results. 05/24/23 13:35 Labs: Lab Results 05/24/23 05/24/23 05/24/23 Range/Units 12:04 13:35 13:43 WBC 10.3 (4.8-10.8) X10*3/uL RBC 4.37 (4.20-5.50) X10*6/uL Hgb 13.4 (12.0-16.0) g/dl Hct 42.0 (37.0-47.0) % MCV 96.1 (80.0-98.0) fL MCH 30.7 (27.0-33.0) pg MCHC 31.9 (31.0-35.0) g/dl RDW 13.4 (11.0-16.0) % Plt Count 175 (160-400) X10*3/uL MPV 9.2 L (9.4-12.3) fL Immature Gran % (Auto) 0.9 H (0.0-0.4) % Neut % (Auto) 85.0 H (45-73) % Lymph % (Auto) 9.5 L (20-40) % Bertie % (Auto) 3.7 (2-11) % Eos % (Auto) 0.4 (0-4) % Baso % (Auto) 0.5 (0-2) % Lymph # (Auto) 1.0 L (1.2-4.9) X10*3/uL Bertie # (Auto) 0.4 (0.1-1.2) X10*3/uL Eos # (Auto) 0.0 (0.0-0.4) X10*3/uL Baso # (Auto) 0.1 (0.0-0.2) X10*3/uL Abs Immat Gran (auto) 0.09 H (0.00-0.03) X10*3/uL Absolute Neuts (auto) 8.7 H (2.0-8.3) x10*3/uL Absolute Nucleated RBC 0.000 (0.0-0.012) X10*3/uL Nucleated RBC % (auto) 0.0 (0.0-0.2) /100WBC Whole Blood PT 12.2 (11.1-13.5) sec Whole Blood INR 1.0 (0.9-1.1) VBG pH (7.32-7.43) VBG pCO2 mmHg VBG pO2 mmHg VBG HCO3 (22-26) mmol/L VBG O2 Saturation % VBG Base Excess mmol/L Sodium 137 (135-145) mmol/L Potassium 4.6 (3.3-5.1) mmol/L Chloride 103 (96-108) mmol/L Carbon Dioxide 26 (22-29) mmol/L Anion Gap 13 (12-20) BUN 17 H (9-16) mg/dL Creatinine 1.02 (0.5-1.4) mg/dL Estim Creat Clear Calc 70.8 Estimated GFR 57 Random Glucose 126 H (60-115) mg/dL Calcium 9.8 (8.4-10.2) mg/dL Magnesium 2.4 (1.6-2.6) mg/dL Total Bilirubin 0.3 (0.0-1.0) mg/dL Direct Bilirubin 0.2 (0.0-0.5) mg/dL AST 17 (5-31) U/L ALT 24 (0-31) U/L Alkaline Phosphatase 109 (39-117) U/L Ammonia (13-55) umol/L Troponin I High Sens (<3.5-17.0) ng/L Total Protein 8.0 (6.5-8.0) g/dL Albumin 4.1 (3.5-5.0) g/dL COVID-19 (NORMA) (Negative) COVID-19 Clin Com 05/24/23 05/24/23 05/24/23 Range/Units 13:43 13:43 13:43 WBC (4.8-10.8) X10*3/uL RBC (4.20-5.50) X10*6/uL Hgb (12.0-16.0) g/dl Hct (37.0-47.0) % MCV (80.0-98.0) fL MCH (27.0-33.0) pg MCHC (31.0-35.0) g/dl RDW (11.0-16.0) % Plt Count (160-400) X10*3/uL MPV (9.4-12.3) fL Immature Gran % (Auto) (0.0-0.4) % Neut % (Auto) (45-73) % Lymph % (Auto) (20-40) % Bertie % (Auto) (2-11) % Eos % (Auto) (0-4) % Baso % (Auto) (0-2) % Lymph # (Auto) (1.2-4.9) X10*3/uL Bertie # (Auto) (0.1-1.2) X10*3/uL Eos # (Auto) (0.0-0.4) X10*3/uL Baso # (Auto) (0.0-0.2) X10*3/uL Abs Immat Gran (auto) (0.00-0.03) X10*3/uL Absolute Neuts (auto) (2.0-8.3) x10*3/uL Absolute Nucleated RBC (0.0-0.012) X10*3/uL Nucleated RBC % (auto) (0.0-0.2) /100WBC Whole Blood PT (11.1-13.5) sec Whole Blood INR (0.9-1.1) VBG pH (7.32-7.43) VBG pCO2 mmHg VBG pO2 mmHg VBG HCO3 (22-26) mmol/L VBG O2 Saturation % VBG Base Excess mmol/L Sodium (135-145) mmol/L Potassium (3.3-5.1) mmol/L Chloride (96-108) mmol/L Carbon Dioxide (22-29) mmol/L Anion Gap (12-20) BUN (9-16) mg/dL Creatinine (0.5-1.4) mg/dL Estim Creat Clear Calc Estimated GFR Random Glucose (60-115) mg/dL Calcium (8.4-10.2) mg/dL Magnesium (1.6-2.6) mg/dL Total Bilirubin (0.0-1.0) mg/dL Direct Bilirubin (0.0-0.5) mg/dL AST (5-31) U/L ALT (0-31) U/L Alkaline Phosphatase (39-117) U/L Ammonia 51 (13-55) umol/L Troponin I High Sens 10.5 D (<3.5-17.0) ng/L Total Protein (6.5-8.0) g/dL Albumin (3.5-5.0) g/dL COVID-19 (NORMA) Negative (Negative) COVID-19 Clin Com See Note 05/24/23 Range/Units 13:45 WBC (4.8-10.8) X10*3/uL RBC (4.20-5.50) X10*6/uL Hgb (12.0-16.0) g/dl Hct (37.0-47.0) % MCV (80.0-98.0) fL MCH (27.0-33.0) pg MCHC (31.0-35.0) g/dl RDW (11.0-16.0) % Plt Count (160-400) X10*3/uL MPV (9.4-12.3) fL Immature Gran % (Auto) (0.0-0.4) % Neut % (Auto) (45-73) % Lymph % (Auto) (20-40) % Bertie % (Auto) (2-11) % Eos % (Auto) (0-4) % Baso % (Auto) (0-2) % Lymph # (Auto) (1.2-4.9) X10*3/uL Bertie # (Auto) (0.1-1.2) X10*3/uL Eos # (Auto) (0.0-0.4) X10*3/uL Baso # (Auto) (0.0-0.2) X10*3/uL Abs Immat Gran (auto) (0.00-0.03) X10*3/uL Absolute Neuts (auto) (2.0-8.3) x10*3/uL Absolute Nucleated RBC (0.0-0.012) X10*3/uL Nucleated RBC % (auto) (0.0-0.2) /100WBC Whole Blood PT (11.1-13.5) sec Whole Blood INR (0.9-1.1) VBG pH 7.38 (7.32-7.43) VBG pCO2 46 mmHg VBG pO2 76 mmHg VBG HCO3 27 H (22-26) mmol/L VBG O2 Saturation 95.0 % VBG Base Excess 2.2 mmol/L Sodium (135-145) mmol/L Potassium (3.3-5.1) mmol/L Chloride (96-108) mmol/L Carbon Dioxide (22-29) mmol/L Anion Gap (12-20) BUN (9-16) mg/dL Creatinine (0.5-1.4) mg/dL Estim Creat Clear Calc Estimated GFR Random Glucose (60-115) mg/dL Calcium (8.4-10.2) mg/dL Magnesium (1.6-2.6) mg/dL Total Bilirubin (0.0-1.0) mg/dL Direct Bilirubin (0.0-0.5) mg/dL AST (5-31) U/L ALT (0-31) U/L Alkaline Phosphatase (39-117) U/L Ammonia (13-55) umol/L Troponin I High Sens (<3.5-17.0) ng/L Total Protein (6.5-8.0) g/dL Albumin (3.5-5.0) g/dL COVID-19 (NOMRA) (Negative) COVID-19 Clin Com Independent Interpretation I performed an independent interpretation of an: EKG and CT Scan Interpretation: Rate: 81 Rhythm: NSR [place]: left Normal P waves. Normal LESLI. Normal QRS complex. ST T wave : no GERTRUDIS, inverted t wave III qTC: normal prior studies: no acute ischemia The study has been interpreted contemporaneously by me. . Radiology Impression Discussion of test interpretation with radiology: I have reviewed the radiologist's reading. Independent Historian Clinical information obtained from an independent historian. History obtained from or confirmed by: Other (sales and retail management recruiter who witnessed both events) External Record Review External record reviewed: Inpatient record and Outpatient record NIH Stroke Scale Internal: Initial- Upon Arrival Level of Consciousness: Not Alert; requires repeated stimulation, or strong of painful stim. Level of Consciousness Questions: Answers neither question correctly Level of Consciousness Commands: Performs neither task correctly Best Gaze: Normal Visual: No visual loss Facial Palsy: Normal Motor Arm (Right): No drift Motor Arm (Left): Drift Motor Leg (Right): No drift Motor Leg (Left): Drift Limb Ataxia: Absent Sensory: Normal Best Language: Mute, global aphasia Dysarthia: Intubated (unable to talk to due versed but not intubated) Extinction and Inattention: Visual, tactile, auditory, spatial, or personal inattention Score: 12 Critical Care Time Critical Care Time Critical Care Time: Yes Total Critical Care Time: 60 Attestation: neuro consult calls to family transfer to tertiary center Discharge Plan Discharge Clinical Impression: Subdural hematoma, Subarachnoid hemorrhage Patient Disposition: [facility] Transfer Details: [facility] Prescriptions: No Action lamotrigine 150 mg tablet 150 mg PO BID trazodone 50 mg tablet 50 mg PO BEDTIME citalopram 10 mg tablet 30 mg PO DAILY quetiapine 100 mg tablet 100 mg PO BID solifenacin 10 mg tablet 10 mg PO DAILY lamotrigine 100 mg tablet 100 mg PO BID quetiapine 50 mg tablet 50 mg PO BID@0900,1600 cetirizine 10 mg tablet 10 mg PO DAILY PRN (Reason: allergy symptoms) Qty: 14 0RF clonazepam [Klonopin] 0.5 mg tablet 0.25 mg PO DAILY PRN (Reason: Agitation) melatonin 3 mg tablet 3 mg PO BEDTIME multivitamin [Daily-Saira] Tablet 1 tab PO QAM polyethylene glycol 3350 [Miralax] 17 gram/dose Powder 17 g PO DAILY PRN (Reason: Constipation) albuterol sulfate 90 mcg/actuation Hfa Aerosol Inhaler 2 puff INHALATION Q6H PRN (Reason: Shortness Of Breath Or Wheezing) docusate sodium 100 mg Tablet 500 mg PO QAM fiber Tablet,Chewable 1 tab PO BID ferrous gluconate 324 mg (37.5 mg iron) Tablet 324 mg PO DAILY Interventions: Acute Care Transfer Worksheet (ED) Last Done: 05/24/23 14:49 Discharge Date/Time: 05/24/23 14:52
[2023-05-24] MEDS: iohexoL 350 MG/ML 100 ML INFUS..BTL 70 ML IV (12:37)
[2023-05-24 12:49] VITALS: BP 113/55; BP 120/86; PULSE 110; PULSE 91; RESP 18; O2SAT 100; O2SAT 96; BMI 29.5
[2023-05-24 13:09] VITALS: BP 112/81; PULSE 74; RESP 16; O2SAT 98
[2023-05-24 13:49] LABS: MANUAL DIFF FLAG NO
[2023-05-24 13:51] LABS: Basophils Absolute Auto 0.1 X10*3/uL (0.0-0.2); Basophils Percent Auto 0.5 % (0-2); Eosinophils Percent Auto 0.4 % (0-4); Hemoglobin 13.4 g/dl (12.0-16.0); Imm Gran Abs Auto 0.09 X10*3/uL (0.00-0.03); Imm Gran Pct Auto 0.9 % (0.0-0.4); Lymphocytes Percent Auto 9.5 % (20-40); Mean Corpuscular HGB Conc 31.9 g/dl (31.0-35.0); Mean Corpuscular Hemoglobin 30.7 pg (27.0-33.0); Mean Corpuscular Volume 96.1 fL (80.0-98.0); Mean Platelet Volume 9.2 fL (9.4-12.3); Monocytes Absolute Auto 0.4 X10*3/uL (0.1-1.2); Monocytes Percent Auto 3.7 % (2-11); Neutrophils Absolute Auto 8.7 x10*3/uL (2.0-8.3); Platelet Count 175 X10*3/uL (160-400); Red Blood Count 4.37 X10*6/uL (4.20-5.50); Red Cell Distribution Width 13.4 % (11.0-16.0); White Blood Count 10.3 X10*3/uL (4.8-10.8)
[2023-05-24 13:52] LABS: Venous Blood Gas Refer to POC result
[2023-05-24 13:53] LABS: VBG Base Excess 2.2 mmol/L; VBG HCO3 27 mmol/L (22-26); VBG pCO2 46 mmHg; VBG pH 7.38 (7.32-7.43); VBG pO2 76 mmHg
--- NOTE | 2023-05-24 13:55 | PC.NURSE ---
pt BIBA from home, obtunded, initially responsive to painful stimuli only. Dr Dennis believe this is because pt was given 5mg Versed by EMS. pt arrived on ambu bag and was placed on 15L non-rebreather sating 95%-100%. pt placed on 2L NC, sating 98%. IV access established, labs drawn, EKG obtained. pt eyes closed but responsive to commands, squeezes hands. pt resting quietly on stretcher, day care aide at bedside. pt plan to be transferred to [facility]
[2023-05-24 13:56] LABS: Alanine Aminotransferase 24 U/L (0-31); Albumin Level 4.1 g/dL (3.5-5.0); Alkaline Phosphatase 109 U/L (39-117); Anion Gap 13 (12-20); Aspartate Amino Transferase 17 U/L (5-31); Bilirubin Direct 0.2 mg/dL (0.0-0.5); Bilirubin Total 0.3 mg/dL (0.0-1.0); Blood Urea Nitrogen 17 mg/dL (9-16); Calcium 9.8 mg/dL (8.4-10.2); Carbon Dioxide 26 mmol/L (22-29); Chloride 103 mmol/L (96-108); Creatinine Clr Calc Pharmacy 70.8; Estimated Glomerular Filt Rate 57; Glucose Random 126 mg/dL (60-115); Magnesium 2.4 mg/dL (1.6-2.6); Potassium 4.6 mmol/L (3.3-5.1); Sodium 137 mmol/L (135-145)
[2023-05-24 14:08] LABS: COVID-19 Test Negative (Negative); IDNOW Serial# 6674DD1D
[2023-05-24 14:12] LABS: Ammonia 51 umol/L (13-55)
[2023-05-24 14:16] LABS: Troponin-I High Sensitivity 10.5 ng/L (<3.5-17.0)
--- NOTE | 2023-05-24 14:51 | PC.NURSE ---
pt unable to lift left arm on command. keeps lifting right arm. also noted, right hand strength stronger than left. eyes now opening spontaneously when preparing to be transported out. rr even/unlabored. skin wpd. report given to EMS
[2023-05-25 09:08] LABS: Glucose, Whole Blood 160 mg/dL (60-115)
== END 2023-05-24 14:52 | disposition short-term general hospital (02) ==
PROVIDERS: Emergency Provider Emergency Medicine
DX: S06.6XAA Traumatic subarachnoid hemorrhage with loss of consciousness status unknown, initial encounter (principal); R29.712 NIHSS score 12; R51.9 Headache, unspecified; R53.1 Weakness; R94.31 Abnormal electrocardiogram [ECG] [EKG]; M54.2 Cervicalgia; W01.10XA Fall on same level from slipping, tripping and stumbling with subsequent striking against unspecified object, initial encounter; Y93.9 Activity, unspecified; Y92.002 Bathroom of unspecified non-institutional (private) residence as the place of occurrence of the external cause; Y99.9 Unspecified external cause status; M79.602 Pain in left arm; Z20.822 Contact with and (suspected) exposure to COVID-19; Z20.828 Contact with and (suspected) exposure to other viral communicable diseases; Z79.899 Other long term (current) drug therapy
CPT/HCPCS: 36415; 70450; 70496; 70498; 80048; 80076; 82140; 82803; 82947; 83735; 84484; 85025; 85610; 87635; 93005; 99285; Q9967

== ENCOUNTER 2023-06-06 14:56 | Emergency (ER) | payer MEDICARE, MEDICAID, SELFPAY ==
--- NOTE | ~2023-06-06 | CT_ITS ---
EXAMINATION: CT HEAD WITHOUT CONTRAST CLINICAL INFORMATION: Stroke. COMPARISON: Head CT 05/24/2023. TECHNIQUE: Contiguous axial imaging was performed from the skull base to vertex without intravenous administration of contrast. This CT examination was performed using dose optimization techniques as appropriate, variously including the following: *Automated exposure control *Adjustment of mA and/or kV according to patient size (this includes techniques or standardized protocols for targeted exams where dose is matched to indication/reason for exam; i.e. extremities or head) *Use of iterative reconstruction technique DLP: 735 mGy-cm. FINDINGS: There is a left posterior parietal approach shunt catheter which terminates just left of midline in the region of the collapsed left lateral ventricular body. The abandoned calcified catheter the right frontal lobe terminating across midline is stable. The additional abandoned catheter in the right frontoparietal scalp is stable. There is redemonstration of dense calcification along the inner table of the right frontoparietal and temporal convexity. The lateral ventricles appear dysmorphic but unchanged from prior and without evidence of hydrocephalus. The previously seen subdural collection along the right cerebral convexity appears nearly resolved with minimal amount of residual collection remaining measuring approximately 3 mm. A small amount of subdural hemorrhage remains along the left cerebral convexity measuring approximately 8 mm in thickness. No evidence of new or progressive hemorrhage is seen. The previously noted subarachnoid hemorrhage has recirculated. There is paranasal sinus mucosal thickening without fluid levels. CT/CT head for stroke IMPRESSION: No new or progressive intracranial hemorrhage. The previously seen subdural collection along the right cerebral convexity appears nearly resolved. A small amount of subdural hemorrhage remains along the left cerebral convexity measuring approximately 8 mm in thickness. The previously noted subarachnoid hemorrhage has recirculated. This critical result was discussed with Dr. Spivey on 06/06/2023 3:32 PM, and it was ascertained that the content and urgency of the report was understood at the time of direct communication.
--- NOTE | 2023-06-06 15:03 | ECG_ITS ---
Test Reason : SEIZURE Blood Pressure : / mmHG Vent. Rate : 071 BPM Atrial Rate : 071 BPM P-R Int : 186 ms QRS Dur : 082 ms QT Int : 396 ms P-R-T Axes : 025 -08 019 degrees QTc Int : 430 ms Normal sinus rhythm Normal ECG When compared with ECG of 24-MAY-2023 12:44, No significant change was found Referred By: To Spivey Electronically Signed By:TILA ASH
--- NOTE | 2023-06-06 15:15 | ED.NEUROSD ---
HPI - Neuro Symptoms/Deficit General Chief Complaint: Seizure Stated Complaint: STROKE ALERT,SLURR,L SIDE WEAK,FROM SNF Time Seen by Provider: 06/06/23 14:57 Source: EMS Mode of arrival: EMS Limitations: altered mental status History of Present Illness HPI Narrative: 53yo female with hydronephrosis, recent subarachnoid hemorrhage who presents with seizure, postictal confusion and left sided weakness Onset (ago): minute(s) Timing confirmed by: other (EMS) Location: speech Severity: severe Quality: weak Associated symptoms: confusion Related Data Home Medications Medication Instructions Recorded Confirmed clonazepam 0.5 mg tablet (Klonopin) 0.25 mg PO DAILY PRN Agitation 01/21/23 02/21/23 melatonin 3 mg tablet 3 mg PO BEDTIME 01/21/23 02/21/23 albuterol sulfate 90 mcg/actuation 2 puff inhalation Q6H PRN 01/22/23 02/21/23 aerosol inhaler Shortness Of Breath Or Wheezing docusate sodium 100 mg tablet 500 mg PO QAM 01/22/23 02/21/23 ferrous gluconate 324 mg (37.5 mg 324 mg PO DAILY 01/22/23 02/21/23 iron) tablet fiber 1 tab PO BID 01/22/23 02/21/23 multivitamin (Daily-Saira tablet) 1 tab PO QAM 01/22/23 02/21/23 polyethylene glycol 3350 17 17 g PO DAILY PRN Constipation 01/22/23 02/21/23 gram/dose oral powder (Miralax) citalopram 10 mg tablet 30 mg PO DAILY 02/21/23 02/22/23 lamotrigine 150 mg tablet 150 mg PO BID 02/21/23 02/21/23 quetiapine 100 mg tablet 100 mg PO BID 02/21/23 02/21/23 solifenacin 10 mg tablet 10 mg PO DAILY 02/21/23 02/21/23 trazodone 50 mg tablet 50 mg PO BEDTIME 02/21/23 02/21/23 lamotrigine 100 mg tablet 100 mg PO BID 02/22/23 02/22/23 quetiapine 50 mg tablet 50 mg PO BID@0900,1600 02/22/23 02/22/23 Previous Rx's Medication Instructions Recorded cetirizine 10 mg tablet 10 mg PO DAILY PRN allergy 04/13/23 symptoms #14 tabs Allergies Allergy/AdvReac Type Severity Reaction Status Date / Time levetiracetam [From [facility]] Allergy Unknown UNKNOWN Verified 05/03/23 18:26 Review of Systems Review of Systems: Yes Unobtainable due to mental status Neurologic: Denies Sensory deficit (Neuro) [facility] Past Medical History Medical History Chronic constipation Conversion disorder Depression with anxiety Mild persistent asthma Obesity Overactive bladder Psychogenic nonepileptic seizure Unspecified psychosis Social History Social History Alcohol intake: never Patient Tobacco Use Status: Never used Tobacco Advance Directives: No Advance Directives Information Provided: No service: No Current occupational status: disabled Physical Exam Vital Signs: Vital Signs: Last Vital Signs Temp 97.8 F 06/06/23 15:16 Pulse 73 06/06/23 15:16 Resp 16 06/06/23 15:16 BP 125/85 06/06/23 15:16 Pulse Ox 94 06/06/23 15:16 BMI result Body Mass Index 32.7 Const: Other: female with hydrocepahlus, slurred Nutritional Appearance: obese Orientation/consciousness: oriented to person Limitations: altered mental status HEENT: Head: Yes normal to inspection Ears: external ears normal General nose exam: Normal external nose present Mouth: Normal oral and palatal mucosa present and oropharynx normal Throat: Yes posterior oropharynx normal Eyes: General: appearance normal, both eyes and all related structures Neck: Other: supple Neck: Yes normal visual inspection Chest: Chest palpation & inspection: normal inspection of the chest Resp: Auscultation: clear to auscultation bilaterally Cardio: Jugular venous distension: no JVD Rate: regular rate Rhythm: regular rhythm Heart sounds: S1 normal heart sound present and S2 normal heart sound present GI: Inspection: Yes normal to inspection Palpation (GI): Soft to palpation, nontender and No hepatosplenomegaly present Auscultation: normal bowel sounds : General: Yes no CVA tenderness Back/Spine/Pelvis: Back: no CVA tenderness Skin: General skin exam: no rashes or lesions noted Neuro: Other: bilateral weakness left greater than right General: oriented to person Sensory Exam: No Sensory deficit (Neuro) Extrem: General: Yes normal to inspection Psych: Appearance: grossly normal Course Reevaluation(s) Reevaluation #1: Patient awake and alert now nonfocal back to baseline Time: 17:34 Medical Decision Making Differential Diagnosis Differential Diagnoses: The differential diagnosis associated with the presentation includes (stroke, cerebral bleed, subarachnoid, subdural, seizure, Todds paralysis) Admission/Observation Consideration of admission/observation: Escalation of care including admission/observation considered (upon arrival patient was considered for admission) Lab Data MDM Lab Attestation statement: I reviewed the patient's lab results. (no CBC or electrolyte abnormalities) 06/06/23 15:37 06/06/23 15:37 Labs: Lab Results 06/06/23 06/06/23 06/06/23 Range/Units 15:09 15:11 15:37 WBC 8.8 (4.8-10.8) X10*3/uL RBC 4.21 (4.20-5.50) X10*6/uL Hgb 13.1 (12.0-16.0) g/dl Hct 39.9 (37.0-47.0) % MCV 94.8 (80.0-98.0) fL MCH 31.1 (27.0-33.0) pg MCHC 32.8 (31.0-35.0) g/dl RDW 13.0 (11.0-16.0) % Plt Count 306 D (160-400) X10*3/uL MPV 9.3 L (9.4-12.3) fL Immature Gran % (Auto) 0.5 H (0.0-0.4) % Neut % (Auto) 64.7 (45-73) % Lymph % (Auto) 21.1 (20-40) % Gem % (Auto) 5.9 (2-11) % Eos % (Auto) 7.3 H (0-4) % Baso % (Auto) 0.5 (0-2) % Lymph # (Auto) 1.9 (1.2-4.9) X10*3/uL Gem # (Auto) 0.5 (0.1-1.2) X10*3/uL Eos # (Auto) 0.6 H (0.0-0.4) X10*3/uL Baso # (Auto) 0.0 (0.0-0.2) X10*3/uL Abs Immat Gran (auto) 0.04 H (0.00-0.03) X10*3/uL Absolute Neuts (auto) 5.7 (2.0-8.3) x10*3/uL Absolute Nucleated RBC 0.000 (0.0-0.012) X10*3/uL Nucleated RBC % (auto) 0.0 (0.0-0.2) /100WBC PT (11.1-13.3) SEC Whole Blood PT 12.4 (11.1-13.5) sec INR (0.9-1.1) Whole Blood INR 1.0 (0.9-1.1) APTT (26.0-36.4) SEC Sodium (135-145) mmol/L Potassium (3.3-5.1) mmol/L Chloride (96-108) mmol/L Carbon Dioxide (22-29) mmol/L Anion Gap (12-20) BUN (9-16) mg/dL Creatinine (0.5-1.4) mg/dL Estim Creat Clear Calc Estimated GFR POC Glucose 93 (60-115) mg/dL Random Glucose (60-115) mg/dL Calcium (8.4-10.2) mg/dL Total Creatine Kinase (26-140) U/L Troponin I High Sens (<3.5-17.0) ng/L 06/06/23 06/06/23 06/06/23 Range/Units 15:37 15:37 15:37 WBC (4.8-10.8) X10*3/uL RBC (4.20-5.50) X10*6/uL Hgb (12.0-16.0) g/dl Hct (37.0-47.0) % MCV (80.0-98.0) fL MCH (27.0-33.0) pg MCHC (31.0-35.0) g/dl RDW (11.0-16.0) % Plt Count (160-400) X10*3/uL MPV (9.4-12.3) fL Immature Gran % (Auto) (0.0-0.4) % Neut % (Auto) (45-73) % Lymph % (Auto) (20-40) % Gem % (Auto) (2-11) % Eos % (Auto) (0-4) % Baso % (Auto) (0-2) % Lymph # (Auto) (1.2-4.9) X10*3/uL Gem # (Auto) (0.1-1.2) X10*3/uL Eos # (Auto) (0.0-0.4) X10*3/uL Baso # (Auto) (0.0-0.2) X10*3/uL Abs Immat Gran (auto) (0.00-0.03) X10*3/uL Absolute Neuts (auto) (2.0-8.3) x10*3/uL Absolute Nucleated RBC (0.0-0.012) X10*3/uL Nucleated RBC % (auto) (0.0-0.2) /100WBC PT 11.5 (11.1-13.3) SEC Whole Blood PT (11.1-13.5) sec INR 0.9 (0.9-1.1) Whole Blood INR (0.9-1.1) APTT 35.7 (26.0-36.4) SEC Sodium 138 (135-145) mmol/L Potassium 4.2 (3.3-5.1) mmol/L Chloride 103 (96-108) mmol/L Carbon Dioxide 28 (22-29) mmol/L Anion Gap 11 L (12-20) BUN 10 (9-16) mg/dL Creatinine 0.79 (0.5-1.4) mg/dL Estim Creat Clear Calc 83.1 Estimated GFR > 60 POC Glucose (60-115) mg/dL Random Glucose 102 (60-115) mg/dL Calcium 10.1 (8.4-10.2) mg/dL Total Creatine Kinase 30 (26-140) U/L Troponin I High Sens < 2.7 D (<3.5-17.0) ng/L Independent Interpretation I performed an independent interpretation of an: EKG (sinus [address] or twave changes) and CT Scan (old shunt [place], no acute bleed seen) Radiology Impression Discussion of test interpretation with radiology: I discussed test interpretation with the radiologist (old subdurals seen) Independent Historian Clinical information obtained from an independent historian. History obtained from or confirmed by: Other (workforce investment act career manager) External Record Review External record reviewed: Outpatient record Chronic Conditions Patient?s care impacted by: Other (hydrocephalus and seizures) NIH Stroke Scale Level of Consciousness: Not Alert; but arousable by minor stimulation Level of Consciousness Questions: Answers neither question correctly Level of Consciousness Commands: Performs both tasks correctly Best Gaze: Normal Visual: No visual loss Facial Palsy: Normal Motor Arm (Right): Drift Motor Arm (Left): Some effort against gravity Motor Leg (Right): Drift Motor Leg (Left): Some effort against gravity Limb Ataxia: Absent Sensory: Normal Best Language: Severe aphasia Dysarthia: Severe dysarthria Extinction and Inattention: No abnormality Score: 13 Discharge Plan Discharge Clinical Impression: Seizure disorder, Troy's paralysis (postepileptic) Patient Disposition: Home, Self-Care Instructions: Epilepsy (ED) Prescriptions: No Action lamotrigine 150 mg tablet 150 mg PO BID trazodone 50 mg tablet 50 mg PO BEDTIME citalopram 10 mg tablet 30 mg PO DAILY quetiapine 100 mg tablet 100 mg PO BID solifenacin 10 mg tablet 10 mg PO DAILY lamotrigine 100 mg tablet 100 mg PO BID quetiapine 50 mg tablet 50 mg PO BID@0900,1600 cetirizine 10 mg tablet 10 mg PO DAILY PRN (Reason: allergy symptoms) Qty: 14 0RF clonazepam [Klonopin] 0.5 mg tablet 0.25 mg PO DAILY PRN (Reason: Agitation) melatonin 3 mg tablet 3 mg PO BEDTIME multivitamin [Daily-Saira] Tablet 1 tab PO QAM polyethylene glycol 3350 [Miralax] 17 gram/dose Powder 17 g PO DAILY PRN (Reason: Constipation) albuterol sulfate 90 mcg/actuation Hfa Aerosol Inhaler 2 puff INHALATION Q6H PRN (Reason: Shortness Of Breath Or Wheezing) docusate sodium 100 mg Tablet 500 mg PO QAM fiber Tablet,Chewable 1 tab PO BID ferrous gluconate 324 mg (37.5 mg iron) Tablet 324 mg PO DAILY Referrals: Whit Solis MD [Primary Care Provider] - 3 days
[2023-06-06 15:16] VITALS: BP 125/85; BP 131/84; PULSE 73; PULSE 79; RESP 16; TEMP 36.6; O2SAT 94; BMI 32.7
[2023-06-06 15:19] LABS: Glucose, Whole Blood 93 mg/dL (60-115)
[2023-06-06 15:43] LABS: Prothrombin Time Whole Bld POC 12.4 sec (11.1-13.5)
[2023-06-06 15:45] LABS: MANUAL DIFF FLAG NO
[2023-06-06 15:51] LABS: INTERNATIONAL NORM RATIO 0.9 (0.9-1.1); Prothrombin Time 11.5 SEC (11.1-13.3)
[2023-06-06 15:53] LABS: Basophils Percent Auto 0.5 % (0-2); Eosinophils Absolute Auto 0.6 X10*3/uL (0.0-0.4); Eosinophils Percent Auto 7.3 % (0-4); Hematocrit 39.9 % (37.0-47.0); Hemoglobin 13.1 g/dl (12.0-16.0); Imm Gran Abs Auto 0.04 X10*3/uL (0.00-0.03); Imm Gran Pct Auto 0.5 % (0.0-0.4); Lymphocytes Absolute Auto 1.9 X10*3/uL (1.2-4.9); Lymphocytes Percent Auto 21.1 % (20-40); Mean Corpuscular HGB Conc 32.8 g/dl (31.0-35.0); Mean Corpuscular Hemoglobin 31.1 pg (27.0-33.0); Mean Corpuscular Volume 94.8 fL (80.0-98.0); Mean Platelet Volume 9.3 fL (9.4-12.3); Monocytes Absolute Auto 0.5 X10*3/uL (0.1-1.2); Monocytes Percent Auto 5.9 % (2-11); Neutrophils Absolute Auto 5.7 x10*3/uL (2.0-8.3); Neutrophils Percent Auto 64.7 % (45-73); Platelet Count 306 X10*3/uL (160-400); Red Blood Count 4.21 X10*6/uL (4.20-5.50); White Blood Count 8.8 X10*3/uL (4.8-10.8)
[2023-06-06 15:54] LABS: Partial Thromboplastin Time 35.7 SEC (26.0-36.4); Stroke Lab Use COMPLETE
[2023-06-06 16:04] LABS: Anion Gap 11 (12-20); Blood Urea Nitrogen 10 mg/dL (9-16); Calcium 10.1 mg/dL (8.4-10.2); Carbon Dioxide 28 mmol/L (22-29); Chloride 103 mmol/L (96-108); Creatinine Clr Calc Pharmacy 83.1; Estimated Glomerular Filt Rate > 60; Glucose Random 102 mg/dL (60-115); Potassium 4.2 mmol/L (3.3-5.1); Sodium 138 mmol/L (135-145)
[2023-06-06 16:13] LABS: Troponin-I High Sensitivity < 2.7 ng/L (<3.5-17.0)
[2023-06-06] MEDS: Acetaminophen 325 MG TABLET 975 MG PO (18:39)
--- NOTE | 2023-06-06 19:43 | PC.NURSE ---
this rn gave report to ems prior to transport home. iv removed at discharge. pt calm and cooperative. this rn called report to piyush salas of [facility]
== END 2023-06-06 19:45 | disposition home or self-care (01) ==
PROVIDERS: Emergency Provider Emergency Medicine; PCP Internal Medicine
DX: R56.9 Unspecified convulsions (principal); G83.84 Todd's paralysis (postepileptic); R29.713 NIHSS score 13; Z79.899 Other long term (current) drug therapy
CPT/HCPCS: 36415; 70450; 80048; 82550; 82947; 84484; 85025; 85610; 85730; 93005; 99284

== ENCOUNTER 2023-07-04 15:39 | Emergency (ER) | payer MEDICARE, MEDICAID, SELFPAY ==
--- NOTE | ~2023-07-04 | CT_ITS ---
EXAMINATION: CT HEAD WITHOUT CONTRAST CT CERVICAL SPINE WITHOUT CONTRAST CT THORACIC SPINE WITHOUT CONTRAST CLINICAL INFORMATION: Head injury status post fall. COMPARISON: CT head 06/06/2023. TECHNIQUE: [employer] images were obtained. CT imaging of the head, cervical spine, and thoracic spine that performed without contrast. Data was reformatted into multiplanar images at the acquisition workstation. This CT examination was performed using dose optimization techniques as appropriate, including one or more of the following: Automated exposure control, iterative reconstruction, and adjustment of technique factors (mA and/or kVp) according to patient size (this includes techniques or standardized protocols for targeted exams where dose is matched to indication/reason for exam). Fleischner Society criteria for the followup of incidental pulmonary nodules was implemented if appropriate. DLP: 1696 mGy-cm. FINDINGS: Head: There is a small acute subdural hematoma over the right frontal convexity that measures approximately 0.5 cm in maximal thickness best visualized on axial image 40 of 90 series 4. No associated intracranial mass effect. No midline shift or transtentorial herniation. Otherwise stable chronic intercranial findings. There are ventriculoperitoneal shunts and displays. A right frontal catheter that appears to be abandoned traverses the right frontal lobe. There is also a left parietal catheter in place with the within the proximal catheter located within the atrium of left lateral ventricle. The cerebral hemispheres are relatively dysmorphic there is chronic loss of white matter volume with ex vacuo enlargement particularly visualized within the bodies and the lateral ventricles. Saunders-white matter differentiation is grossly preserved and there is no evidence of acute territorial infarct. The skull base is intact. No mastoid or middle ear effusion. Mild to moderate paranasal sinus disease. Cervical spine: Alignment is normal. Vertebral heights are preserved. No acute cervical spine fracture. No abnormal prevertebral soft tissue swelling. There is loss of intervertebral disc height with associated sclerotic degenerative endplate changes and hypertrophic disc osteophyte spurring at multiple levels. Canal patency is not well assessed on this examination due to inherent limitations of CT without intrathecal contrast. There appears to be at least moderate canal stenosis at multiple levels. Uncovertebral joint spurring in conjunction with facet degenerative change causes moderate to severe neuroforaminal encroachment at multiple levels. Thoracic spine: Spinal alignment is normal. Vertebral heights are preserved. No acute fracture. Canal patency is not well assessed due to inherent limitations of CT without intrathecal contrast. Grossly no paraspinal soft tissue mass or collection. Visualized lungs are clear. CT/CT head/brain wo IV con IMPRESSION: Head: There is a relatively small acute subdural hematoma over the right frontal convexity that measures up to 0.5 cm in maximal tenderness. No substantial intracranial mass effect. Otherwise stable chronic intercranial findings with ventriculoperitoneal shunt catheters traversing the right frontal lobe and the left parietal lobe. Cervical and thoracic spine: This component of the examination is unremarkable in that there is no evidence of acute fracture and no acute posttraumatic spinal subluxation. There is multilevel degenerative spondylosis of the cervical spine that appears to be superimposed upon congenital canal narrowing resulting in at least moderate canal stenosis at multiple levels. If there are clinical symptoms of compressive myelopathy then a dedicated cervical spinal MRI can be obtained for better anatomic characterization of the cord and canal. This critical result was discussed with Sherry Bradshaw NP at 5:36 PM on 07/04/2023 and it was ascertained that the content and urgency of the report was understood at the time of direct communication.
[2023-07-04 15:58] VITALS: BP 143/84; BP 155/100; PULSE 87; PULSE 96; RESP 20; TEMP 36.5; O2SAT 96; O2SAT 99; BMI 34.9
--- NOTE | 2023-07-04 16:12 | PC.NURSE ---
PT IS BEING SEEN BY MLP AT THIS TIME, PT AWARE OF PLAN OF CARE
--- NOTE | 2023-07-04 16:18 | ECG_ITS ---
Test Reason : FALL Blood Pressure : / mmHG Vent. Rate : 080 BPM Atrial Rate : 080 BPM P-R Int : 174 ms QRS Dur : 084 ms QT Int : 382 ms P-R-T Axes : 075 -05 013 degrees QTc Int : 440 ms Normal sinus rhythm Normal ECG When compared with ECG of 06-JUN-2023 15:24, No significant change was found Referred By: Sherry Bradshaw Electronically Signed By:TILA ASH
--- NOTE | 2023-07-04 16:20 | ED_ITS ---
HPI - Fall General Chief Complaint: Fall Stated Complaint: sz/ syncope, unwit fall, small face lac Time Seen by Provider: 07/04/23 16:03 Source: patient and EMS Mode of arrival: EMS Limitations: physical limitation History of Present Illness HPI Narrative: Patient is a 53-year-old female who presents emergency department via EMS coming from a half-way, patient's roommate called 911. Patient had an unwitnessed fall. Reportedly she had finished physical therapy. By her account she was getting up to walk to her room when she suddenly fell, it is unclear whether there was any precipitating symptoms such as dizziness. She states sometimes I am dizzy . She recalls waking up while lying on the floor. Per EMS report her room a endorsed that she had lost consciousness. Sustained head strike as she has lacerations to the left lateral cheek. When asked she endorses having a headache and neck pain. At this time when asked she denies dizziness, vision changes, chest pain, shortness of with sore tingling of the extremities. She reports having baseline weakness to the left upper lower extremity s/p recent stroke. Related Data Home Medications Medication Instructions Recorded Confirmed clonazepam 0.5 mg tablet (Klonopin) 0.25 mg PO DAILY PRN Agitation 01/21/23 02/21/23 melatonin 3 mg tablet 3 mg PO BEDTIME 01/21/23 02/21/23 albuterol sulfate 90 mcg/actuation 2 puff inhalation Q6H PRN 01/22/23 02/21/23 aerosol inhaler Shortness Of Breath Or Wheezing docusate sodium 100 mg tablet 500 mg PO QAM 01/22/23 02/21/23 ferrous gluconate 324 mg (37.5 mg 324 mg PO DAILY 01/22/23 02/21/23 iron) tablet fiber 1 tab PO BID 01/22/23 02/21/23 multivitamin (Daily-Saira tablet) 1 tab PO QAM 01/22/23 02/21/23 polyethylene glycol 3350 17 17 g PO DAILY PRN Constipation 01/22/23 02/21/23 gram/dose oral powder (Miralax) citalopram 10 mg tablet 30 mg PO DAILY 02/21/23 02/22/23 lamotrigine 150 mg tablet 150 mg PO BID 02/21/23 02/21/23 quetiapine 100 mg tablet 100 mg PO BID 02/21/23 02/21/23 solifenacin 10 mg tablet 10 mg PO DAILY 02/21/23 02/21/23 trazodone 50 mg tablet 50 mg PO BEDTIME 02/21/23 02/21/23 lamotrigine 100 mg tablet 100 mg PO BID 02/22/23 02/22/23 quetiapine 50 mg tablet 50 mg PO BID@0900,1600 02/22/23 02/22/23 Previous Rx's Medication Instructions Recorded cetirizine 10 mg tablet 10 mg PO DAILY PRN allergy 04/13/23 symptoms #14 tabs Allergies Allergy/AdvReac Type Severity Reaction Status Date / Time levetiracetam [From [facility]] Allergy Unknown UNKNOWN Verified 05/03/23 18:26 Review of Systems 2 Review of Systems: Yes Unobtainable due to mental status [facility] Past Medical History Attestation statement: The following information was validated with the patient. Source: old records reviewed Medical History Chronic constipation Overactive bladder Mild persistent asthma Psychogenic nonepileptic seizure Conversion disorder Depression with anxiety Unspecified psychosis Obesity Social History Social History Alcohol intake: never Patient Tobacco Use Status: Never used Tobacco Smoked in Last 30 Days: No Use of substances other than those prescribed or required for medical reasons: No Advance Directives: No Advance Directives Information Provided: Yes Patient : No service: No Current occupational status: disabled Physical Exam 2 Vital Signs: Vital Signs: Last Vital Signs Temp 97.5 F 07/04/23 17:12 Pulse 80 07/04/23 17:12 Resp 16 07/04/23 17:12 BP 129/71 07/04/23 17:12 Pulse Ox 100 07/04/23 17:12 O2 Del Method Room Air 07/04/23 17:12 BMI result Body Mass Index 34.9 Appearance: Alert.?Oriented to person, place and time. No acute distress.?Normal affect. Head: 1ml Laceration to the left lateral cheek, bleeding controlled Eyes: Pupils equal, round and reactive to light.?EOMi. No nystgmus, no fixed gaze. ENT: Pharynx normal.??Dentition normal. TM normal bilaterally. No septal hematoma. Neck: Normal inspection.? Neck supple.??Hard cervical spine collar in place Back: Midline thoracic spine tenderness upon palpation T5 - T10, no palpable step off's or deformities. CVS: Heart sounds normal. Normal heart rate and rhythm.? Pulses normal.?? Respiratory: No respiratory distress.? Lung sounds clear to auscultation bilaterally?? Abdomen: Soft and non-tender. Normoactive bowel sounds. Skin: Skin warm and dry.? Normal skin color.? Extremities: No lower extremity edema.?Full ROM to bilateral shoulders, elbows, wrist, hip, knee, ankle Neuro: Moves all extremities spontaneously. Sensation intact bilaterally. Left upper and lower extremity weakness; strength 2/5. CN II-XII intact. GCS 15. Course Reevaluation(s) Reevaluation #1: Patient's farm or ranch animal caretaker; Isai is at the bedside. She states that she was home when this occurred. She did not urinating. She states that the patient came out from her room and farm or ranch animal caretaker noticed the laceration to her face. The patient stated that she had ?fallen into the closet?. She was ambulatory, with mentation at baseline per her caretakers report. Time: 16:42 Reevaluation #2: Received telephone call from radiology; Small acute subdural hematoma over the right frontal convexity that measures up to 0.5 cm, Without mass effect or shift. Cervical. thoracic spine without acute Fracture or traumatic subluxation. Remains with PERRL, no confusion, GCS remains 15, no bradycardia/ resp compromise, or hypertension. Call placed to [facility]. Time: 17:33 Reevaluation #3: Patient accepted for ED to ED trauma transfer by Dr. Delatorre to [facility]. Patient and farm or ranch animal caretaker updated on plan of care. 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 Differential Diagnosis Differential Diagnoses: The differential diagnosis associated with the presentation includes (Seizure, vasovagal syncope, ACS, stroke, ICH,) Admission/Observation Consideration of admission/observation: Escalation of care including admission/observation considered (Upon arrival patient was initially considered for admission. See course narrative for further detail) Lab Data MDM Lab Attestation statement: I reviewed the patient's lab results. CBC is without leukocytosis or anemia. CMP is overall unremarkable. 07/04/23 16:58 07/04/23 16:58 Labs: Lab Results 07/04/23 07/04/23 Range/Units 16:58 18:14 WBC 9.1 (4.8-10.8) X10*3/uL RBC 4.17 L (4.20-5.50) X10*6/uL Hgb 12.8 (12.0-16.0) g/dl Hct 39.4 (37.0-47.0) % MCV 94.5 (80.0-98.0) fL MCH 30.7 (27.0-33.0) pg MCHC 32.5 (31.0-35.0) g/dl RDW 14.2 (11.0-16.0) % Plt Count 192 D (160-400) X10*3/uL MPV 9.2 L (9.4-12.3) fL Immature Gran % (Auto) 0.9 H (0.0-0.4) % Neut % (Auto) 62.3 (45-73) % Lymph % (Auto) 23.8 (20-40) % Phelps % (Auto) 7.0 (2-11) % Eos % (Auto) 5.6 H (0-4) % Baso % (Auto) 0.4 (0-2) % Lymph # (Auto) 2.2 (1.2-4.9) X10*3/uL Phelps # (Auto) 0.6 (0.1-1.2) X10*3/uL Eos # (Auto) 0.5 H (0.0-0.4) X10*3/uL Baso # (Auto) 0.0 (0.0-0.2) X10*3/uL Abs Immat Gran (auto) 0.08 H (0.00-0.03) X10*3/uL Absolute Neuts (auto) 5.7 (2.0-8.3) x10*3/uL Absolute Nucleated RBC 0.000 (0.0-0.012) X10*3/uL Nucleated RBC % (auto) 0.0 (0.0-0.2) /100WBC PT 11.3 (11.1-13.3) SEC INR 0.9 (0.9-1.1) Sodium 139 (135-145) mmol/L Potassium 4.0 (3.3-5.1) mmol/L Chloride 101 (96-108) mmol/L Carbon Dioxide 30 H (22-29) mmol/L Anion Gap 12 (12-20) BUN 13 (9-16) mg/dL Creatinine 0.78 (0.5-1.4) mg/dL Estim Creat Clear Calc 87.0 Estimated GFR > 60 Random Glucose 89 (60-115) mg/dL Calcium 9.6 (8.4-10.2) mg/dL Magnesium 2.2 (1.6-2.6) mg/dL Total Bilirubin 0.3 (0.0-1.0) mg/dL AST 9 (5-31) U/L ALT 10 (0-31) U/L Alkaline Phosphatase 106 (39-117) U/L Troponin I High Sens < 2.7 (<3.5-17.0) ng/L Total Protein 7.1 (6.5-8.0) g/dL Albumin 3.8 (3.5-5.0) g/dL Lipase 16 (8-78) U/L Urine Color Yellow Urine Appearance Clear Urine pH 7.5 (5.0-9.0) Ur Specific Creole 1.010 (1.005-1.025) Urine Protein Negative (Neg-Trace) mg/dL Urine Glucose (UA) Negative (Negative) mg/dL Urine Ketones Negative (Negative) mg/dL Urine Blood Trace H (Negative) Urine Nitrite Negative (Negative) Ur Leukocyte Esterase Small (1+) H (Negative) Independent Interpretation I performed an independent interpretation of an: EKG Interpretation: Rate: 80 Rhythm:? Normal sinus rhythm Normal P waves.? Normal LESLI.?? Normal QRS complex.?? ST T wave :??No ST elevation, no ST depression, no T-wave inversion qTC: 440 prior studies:? May 2023 The study has been interpreted contemporaneously by me. Radiology Impression Discussion of test interpretation with radiology: I have reviewed the radiologist's reading. Radiologist Impression: CT/CT head/brain wo IV con IMPRESSION: Head: There is a relatively small acute subdural hematoma over the right frontal convexity that measures up to 0.5 cm in maximal tenderness. No substantial intracranial mass effect. Otherwise stable chronic intercranial findings with ventriculoperitoneal shunt catheters traversing the right frontal lobe and the left parietal lobe. Cervical and thoracic spine: This component of the examination is unremarkable in that there is no evidence of acute fracture and no acute posttraumatic spinal subluxation. There is multilevel degenerative spondylosis of the cervical spine that appears to be superimposed upon congenital canal narrowing resulting in at least moderate canal stenosis at multiple levels. If there are clinical symptoms of compressive myelopathy then a dedicated cervical spinal MRI can be obtained for better anatomic characterization of the cord and canal. Independent Historian Clinical information obtained from an independent historian. History obtained from or confirmed by: EMS (As per HPI) and Other (Geriatric Aide as per course narrative) Critical Care Time Critical Care Time Critical Care Time: Yes Total Critical Care Time: 43 Attestation: I personally attest to this critical care time spent taking care of the patient exclusive of all other billable procedures was approximately 43 minutes including initial evaluation of patient, ordering tests, x-ray interpretation, EKG interpretation, medical consultation, documentation, re-evaluation. Discharge Plan Discharge Clinical Impression: Acute subdural hematoma Patient Disposition: [facility] Transfer Details: Pt. Going to [facility] ED Prescriptions: No Action lamotrigine 150 mg tablet 150 mg PO BID trazodone 50 mg tablet 50 mg PO BEDTIME citalopram 10 mg tablet 30 mg PO DAILY quetiapine 100 mg tablet 100 mg PO BID solifenacin 10 mg tablet 10 mg PO DAILY lamotrigine 100 mg tablet 100 mg PO BID quetiapine 50 mg tablet 50 mg PO BID@0900,1600 cetirizine 10 mg tablet 10 mg PO DAILY PRN (Reason: allergy symptoms) Qty: 14 0RF clonazepam [Klonopin] 0.5 mg tablet 0.25 mg PO DAILY PRN (Reason: Agitation) melatonin 3 mg tablet 3 mg PO BEDTIME multivitamin [Daily-Saira] Tablet 1 tab PO QAM polyethylene glycol 3350 [Miralax] 17 gram/dose Powder 17 g PO DAILY PRN (Reason: Constipation) albuterol sulfate 90 mcg/actuation Hfa Aerosol Inhaler 2 puff INHALATION Q6H PRN (Reason: Shortness Of Breath Or Wheezing) docusate sodium 100 mg Tablet 500 mg PO QAM fiber Tablet,Chewable 1 tab PO BID ferrous gluconate 324 mg (37.5 mg iron) Tablet 324 mg PO DAILY
--- NOTE | 2023-07-04 16:30 | PC.NURSE ---
PT RETURNED FROM CT SCAN VIA STRETCHER.
[2023-07-04 17:03] LABS: MANUAL DIFF FLAG NO
[2023-07-04 17:07] LABS: Basophils Percent Auto 0.4 % (0-2); Eosinophils Absolute Auto 0.5 X10*3/uL (0.0-0.4); Eosinophils Percent Auto 5.6 % (0-4); Hematocrit 39.4 % (37.0-47.0); Hemoglobin 12.8 g/dl (12.0-16.0); Imm Gran Abs Auto 0.08 X10*3/uL (0.00-0.03); Imm Gran Pct Auto 0.9 % (0.0-0.4); Lymphocytes Absolute Auto 2.2 X10*3/uL (1.2-4.9); Lymphocytes Percent Auto 23.8 % (20-40); Mean Corpuscular HGB Conc 32.5 g/dl (31.0-35.0); Mean Corpuscular Hemoglobin 30.7 pg (27.0-33.0); Mean Corpuscular Volume 94.5 fL (80.0-98.0); Mean Platelet Volume 9.2 fL (9.4-12.3); Monocytes Absolute Auto 0.6 X10*3/uL (0.1-1.2); Neutrophils Absolute Auto 5.7 x10*3/uL (2.0-8.3); Neutrophils Percent Auto 62.3 % (45-73); Platelet Count 192 X10*3/uL (160-400); Red Blood Count 4.17 X10*6/uL (4.20-5.50); Red Cell Distribution Width 14.2 % (11.0-16.0); White Blood Count 9.1 X10*3/uL (4.8-10.8)
[2023-07-04 17:10] VITALS: BP 129/71; PULSE 83; RESP 16; TEMP 36.6; O2SAT 100
[2023-07-04 17:12] VITALS: BP 129/71; PULSE 80; RESP 16; TEMP 36.4; O2SAT 100
--- NOTE | 2023-07-04 17:12 | PC.NURSE ---
pt a&ox2, pt has a hard time answering questions on what year it is - states that year is 2020/2021. vss and up to date. pt verbalizing 5/10 headache with accompanying dizziness. pt biba after possible fall at home. per circular saw filer, pt went upstairs to clean room. next time circular saw filer saw pt - she was bleeding and had small laceration on left side of eye/sikhism. circular saw filer/pt unaware if she had seizure. pt has hx of seizures and CVA. pt has left sided weakness d/t past CVA. CMS intact. peripheral pulse palpable. bilateral equal strength noted on all extremities. respirations even and unlabored. c-collar in place. pt's circular saw filer bedside w/ pt for support. pt and circular saw filer aware of plan at this time. seizure pads placed for precaution. call mariscal placed within reach.
[2023-07-04 17:19] LABS: Alanine Aminotransferase 10 U/L (0-31); Albumin Level 3.8 g/dL (3.5-5.0); Alkaline Phosphatase 106 U/L (39-117); Anion Gap 12 (12-20); Aspartate Amino Transferase 9 U/L (5-31); Bilirubin Total 0.3 mg/dL (0.0-1.0); Blood Urea Nitrogen 13 mg/dL (9-16); Calcium 9.6 mg/dL (8.4-10.2); Carbon Dioxide 30 mmol/L (22-29); Chloride 101 mmol/L (96-108); Estimated Glomerular Filt Rate > 60; Glucose Random 89 mg/dL (60-115); Lipase 16 U/L (8-78); Magnesium 2.2 mg/dL (1.6-2.6); Sodium 139 mmol/L (135-145); Total Protein 7.1 g/dL (6.5-8.0)
[2023-07-04 17:24] LABS: INTERNATIONAL NORM RATIO 0.9 (0.9-1.1); Prothrombin Time 11.3 SEC (11.1-13.3)
[2023-07-04 17:27] LABS: Troponin-I High Sensitivity < 2.7 ng/L (<3.5-17.0)
--- NOTE | 2023-07-04 17:42 | MHC.EDTECH ---
pt was found to be wet, pt cleaned and bed linens changed, rolled with c-spine precautions. warm blanket given and call light placed within reach. RN aware
--- NOTE | 2023-07-04 17:55 | PC.NURSE ---
pt peaking w/ provider at this time - pt and sole stainer aware of care of plan at this time.
[2023-07-04 18:22] LABS: Appearance Urine Clear; Color Urine Yellow; Glucose Urine UA Negative (Negative); Leukocyte Esterase Urine Small (1+) (Negative); Nitrite Urine Negative (Negative); PH 7.5 (5.0-9.0); UMIC TRIGGER UACC YES; Urine Blood Trace (Negative); Urine Ketones Negative (Negative); Urine Protein Negative (Neg-Trace)
[2023-07-04 18:29] LABS: UPreg QC Valid YES; Urine Pregnancy NEGATIVE (NEGATIVE)
[2023-07-04 18:31] LABS: Bacteria Urine 4+ (None Seen); Hyaline Casts Urine 0-2 /LPF (0-2); Squamous Epithelial Cell Urine 0-2 /HPF (0-2); UACC Culture Trigger YES
--- NOTE | 2023-07-04 18:53 | PC.NURSE ---
report given to EMS - pt being transferred to [facility].
[2023-07-04 19:02] LABS: COVID-19 Test Negative (Negative); IDNOW Serial# 08D9AD1C
== END 2023-07-04 19:00 | disposition short-term general hospital (02) ==
PROVIDERS: Nurse Practitioner Family; Emergency Provider Emergency Medicine
DX: S06.5XAA Traumatic subdural hemorrhage with loss of consciousness status unknown, initial encounter (principal); R55 Syncope and collapse; R51.9 Headache, unspecified; M54.2 Cervicalgia; M54.6 Pain in thoracic spine; W01.10XA Fall on same level from slipping, tripping and stumbling with subsequent striking against unspecified object, initial encounter; Y93.9 Activity, unspecified; Y92.9 Unspecified place or not applicable; Y99.9 Unspecified external cause status; Z20.822 Contact with and (suspected) exposure to COVID-19; Z20.828 Contact with and (suspected) exposure to other viral communicable diseases; Z79.899 Other long term (current) drug therapy
CPT/HCPCS: 36415; 70450; 72125; 72128; 80053; 81001; 81025; 83690; 83735; 84484; 85025; 85610; 87086; 87088; 87186; 87635; 93005; 99285

== ENCOUNTER 2023-07-09 13:41 | Emergency (ER) | payer MEDICARE, MEDICAID, SELFPAY ==
--- NOTE | ~2023-07-09 | CT_ITS ---
EXAMINATION: CT CERVICAL SPINE WITHOUT CONTRAST CLINICAL INFORMATION: Trauma COMPARISON: Previous cervical spine CT 07/04/2023 TECHNIQUE: Axial images through the cervical spine without contrast. Sagittal and coronal reconstructions on the technologist workstation were performed. This CT examination was performed using dose optimization techniques as appropriate, variously including the following: *Automated exposure control *Adjustment of mA and/or kV according to patient size (this includes techniques or standardized protocols for targeted exams where dose is matched to indication/reason for exam; i.e. extremities or head) *Use of iterative reconstruction technique DLP: 3 8 by mGy-cm FINDINGS: Bone alignment is normal. No fracture or dislocation. Multilevel degenerative spondylosis from C2-C3 to C7-T1. Multilevel disc space narrowing from C3-C4 to C7-T1. Mild degenerative changes at the C1 dens articulation. Prevertebral soft tissues are normal. There are bilateral shunt catheters. Small right thyroid nodule. This measures 1 cm in maximum dimension. No imaging follow-up recommended. Visualized lung apices are clear. CT/CT cervical spine wo IV con IMPRESSION: Degenerative changes. No fracture or dislocation. Fleischner guidelines were followed.
--- NOTE | ~2023-07-09 | CT_ITS ---
EXAMINATION: CT HEAD WITHOUT CONTRAST CLINICAL INFORMATION: Head trauma COMPARISON: Previous head CT scans most recent 07/04/2023 TECHNIQUE: Contiguous axial imaging was performed from the skull base to vertex without intravenous administration of contrast. This CT examination was performed using dose optimization techniques as appropriate, variously including the following: *Automated exposure control *Adjustment of mA and/or kV according to patient size (this includes techniques or standardized protocols for targeted exams where dose is matched to indication/reason for exam; i.e. extremities or head) *Use of iterative reconstruction technique DLP: 1099 mGy-cm FINDINGS: There is a small acute right frontal subdural hematoma that appears unchanged from most recent exam 07/04/2023 exam. This measures maximum 5 mm in greatest thickness axial image 46 series 3. No mass effect. There is bilateral dural calcification. No other extra-axial collection. No other evidence of intra-axial or extra-axial hemorrhage. Bilateral [employer]ROLE[employer]ING [employer] shunt catheters appear unchanged. Right-sided abandoned shunt catheter entering the right frontal lobe with tip in the frontal horn of the left lateral ventricle. Left PETROLE[employer] REFINING FIRER shunt catheter entering the left posterior parietal lobe with tip projecting over the atrium. Dysmorphic appearance of the brain prominent extra-axial CSF spaces and posterior horns of the lateral ventricles, particularly involving the bilateral posterior parietal and occipital lobes. No mass, mass effect or infarct. No skull fracture. Inflammatory changes of the right frontal, ethmoid and left maxillary sinuses. CT/CT head/brain wo IV con IMPRESSION: No acute findings. Small acute right subdural hematoma adjacent to the right frontal lobe unchanged from most recent exam 07/04/2023. No new hemorrhage.
[2023-07-09 13:59] VITALS: BP 101/70; BP 105/80; PULSE 70; PULSE 76; RESP 20; TEMP 36.6; O2SAT 95; O2SAT 98; BMI 33.5
--- NOTE | 2023-07-09 14:03 | ECG_ITS ---
Test Reason : syncope/fall Blood Pressure : / mmHG Vent. Rate : 070 BPM Atrial Rate : 070 BPM P-R Int : 186 ms QRS Dur : 088 ms QT Int : 412 ms P-R-T Axes : 026 006 020 degrees QTc Int : 444 ms Normal sinus rhythm Normal ECG When compared with ECG of 04-JUL-2023 16:28, No significant change was found Referred By: Ann Kline Electronically Signed By:TILA ASH
[2023-07-09 14:29] LABS: MANUAL DIFF FLAG NO
[2023-07-09 14:42] LABS: Basophils Percent Auto 0.6 % (0-2); Eosinophils Absolute Auto 0.6 X10*3/uL (0.0-0.4); Eosinophils Percent Auto 8.4 % (0-4); Hematocrit 39.9 % (37.0-47.0); Hemoglobin 12.7 g/dl (12.0-16.0); Imm Gran Abs Auto 0.02 X10*3/uL (0.00-0.03); Imm Gran Pct Auto 0.3 % (0.0-0.4); Lymphocytes Percent Auto 26.9 % (20-40); Mean Corpuscular HGB Conc 31.8 g/dl (31.0-35.0); Mean Corpuscular Hemoglobin 30.4 pg (27.0-33.0); Mean Corpuscular Volume 95.5 fL (80.0-98.0); Mean Platelet Volume 9.6 fL (9.4-12.3); Monocytes Absolute Auto 0.5 X10*3/uL (0.1-1.2); Monocytes Percent Auto 6.2 % (2-11); Neutrophils Absolute Auto 4.2 x10*3/uL (2.0-8.3); Neutrophils Percent Auto 57.6 % (45-73); Platelet Count 206 X10*3/uL (160-400); Red Blood Count 4.18 X10*6/uL (4.20-5.50); Red Cell Distribution Width 14.1 % (11.0-16.0); White Blood Count 7.3 X10*3/uL (4.8-10.8)
[2023-07-09 14:43] LABS: Ammonia 21 umol/L (13-55)
[2023-07-09 14:47] LABS: Prothrombin Time 11.9 SEC (11.1-13.3)
--- NOTE | 2023-07-09 14:52 | MHC.EDTECH ---
Per HIRAM Juarez, to hold off on orthostatics until c-collar comes off. RN aware. Pt had on brief, this was soiled/removed. Prem placed.
[2023-07-09 14:55] LABS: COVID-19 Test Negative (Negative); IDNOW Serial# 08D9AD1C; IDNOW Serial# BCCEAD1C; Influenza A Negative (Negative); Influenza B2 Negative (Negative)
[2023-07-09 14:56] LABS: B Type Natriuretic Peptide < 10 pg/mL (<100)
[2023-07-09 14:57] LABS: Alanine Aminotransferase 10 U/L (0-31); Albumin Level 3.6 g/dL (3.5-5.0); Alkaline Phosphatase 117 U/L (39-117); Anion Gap 13 (12-20); Aspartate Amino Transferase 8 U/L (5-31); Bilirubin Total 0.2 mg/dL (0.0-1.0); Blood Urea Nitrogen 15 mg/dL (9-16); Calcium 9.7 mg/dL (8.4-10.2); Carbon Dioxide 25 mmol/L (22-29); Chloride 103 mmol/L (96-108); Creatinine Clr Calc Pharmacy 88.6; Estimated Glomerular Filt Rate > 60; Glucose Random 151 mg/dL (60-115); Lipase 19 U/L (8-78); Magnesium 1.9 mg/dL (1.6-2.6); Potassium 3.8 mmol/L (3.3-5.1); Sodium 137 mmol/L (135-145); Total Protein 6.9 g/dL (6.5-8.0)
[2023-07-09 15:00] LABS: Troponin-I High Sensitivity < 2.7 ng/L (<3.5-17.0)
--- NOTE | 2023-07-09 15:14 | ED_ITS ---
HPI - Fall General Chief Complaint: Fall Stated Complaint: DIZZY W/FALL,+LOC,H/O TBI,+THINNER Time Seen by Provider: 07/09/23 14:01 Source: patient, family, EMS and RN notes reviewed Mode of arrival: EMS Limitations: no limitations History of Present Illness HPI Narrative: 53 year old female with PMHx significant for seizure disorder, conversion disorder, syncope, FRONT END ARCHITECT shunt migraines, and subdural hematoma presenting to the ED today via EMS s/p witnessed trip and fall with + head strike, on aspirin. Banquet Line Cook at bedside states she witnessed patient get up from a chair, trip, hit the left side of her head on her roommate's bed, and fall to the ground hitting the back of her head a 2nd time. Patient states she felt dizzy prior to tripping. Denies LOC, postictal phase, convulsions, or tongue bite. In ED patient presents in C-collar and complaining of headache and chronic dizziness. Describes dizziness as a room spinning sensation, worse with sudden head movements. Denies any vision changes, cp. palpitations, SOB, LE pain or swelling. Related Data Home Medications Medication Instructions Recorded Confirmed clonazepam 0.5 mg tablet (Klonopin) 0.25 mg PO DAILY PRN Agitation 01/21/23 02/21/23 melatonin 3 mg tablet 3 mg PO BEDTIME 01/21/23 02/21/23 albuterol sulfate 90 mcg/actuation 2 puff inhalation Q6H PRN 01/22/23 02/21/23 aerosol inhaler Shortness Of Breath Or Wheezing docusate sodium 100 mg tablet 500 mg PO QAM 01/22/23 02/21/23 ferrous gluconate 324 mg (37.5 mg 324 mg PO DAILY 01/22/23 02/21/23 iron) tablet fiber 1 tab PO BID 01/22/23 02/21/23 multivitamin (Daily-Saira tablet) 1 tab PO QAM 01/22/23 02/21/23 polyethylene glycol 3350 17 17 g PO DAILY PRN Constipation 01/22/23 02/21/23 gram/dose oral powder (Miralax) citalopram 10 mg tablet 30 mg PO DAILY 02/21/23 02/22/23 lamotrigine 150 mg tablet 150 mg PO BID 02/21/23 02/21/23 quetiapine 100 mg tablet 100 mg PO BID 02/21/23 02/21/23 solifenacin 10 mg tablet 10 mg PO DAILY 02/21/23 02/21/23 trazodone 50 mg tablet 50 mg PO BEDTIME 02/21/23 02/21/23 lamotrigine 100 mg tablet 100 mg PO BID 02/22/23 02/22/23 quetiapine 50 mg tablet 50 mg PO BID@0900,1600 02/22/23 02/22/23 Previous Rx's Medication Instructions Recorded cetirizine 10 mg tablet 10 mg PO DAILY PRN allergy 04/13/23 symptoms #14 tabs Allergies Allergy/AdvReac Type Severity Reaction Status Date / Time levetiracetam [From [facility]] Allergy Unknown UNKNOWN Verified 05/03/23 18:26 Review of Systems 2 Review of Systems: Constitutional: No fever, chills, fatigue, night sweats, weight changes ENT/Mouth: No ear pain, hearing loss, nasal congestion, sinus pain, rhinorrhea, sore throat Eyes: No eye pain, swelling, redness, vision changes, discharge Cardio: No chest pain, palpitations, MATUTE, orthopnea, peripheral edema Pulm: No SOB, cough, sputum, wheezing, dyspnea, hemoptysis GI: No nausea, vomiting, hematemesis, abdominal pain, diarrhea, constipation, hematochezia, melena : No irregular bleeding, dysuria, frequency, urgency, hesitancy, hematuria, flank pain, urinary flow changes, urinary incontinence or retention MSK: No back pain, neck pain, joint pain, myalgias Skin: No lesions, rashes Neuro: No weakness, numbness, paresthesias, LOC, + dizziness, +headache All other systems reviewed and are negative. [facility] Past Medical History Attestation statement: The following information was validated with the patient. Source: old records reviewed and nursing notes reviewed Medical History Chronic constipation Overactive bladder Mild persistent asthma Psychogenic nonepileptic seizure Conversion disorder Depression with anxiety Unspecified psychosis Obesity Social History Social History Alcohol intake: never Patient Tobacco Use Status: Never used Tobacco Smoked in Last 30 Days: No Use of substances other than those prescribed or required for medical reasons: No Advance Directives: Yes Advance Directives Information Provided: No Advance Directives on File: No Patient : No service: No Current occupational status: disabled Physical Exam 2 Vital Signs: Vital Signs: Last Vital Signs Temp 98 F 07/09/23 13:59 Pulse 74 07/09/23 17:43 Resp 18 07/09/23 15:44 BP 115/71 07/09/23 17:43 Pulse Ox 96 07/09/23 15:44 O2 Del Method Room Air 07/09/23 15:44 BMI result Body Mass Index 33.5 Vital signs stable. Const: Other: Patient is sitting up in bed with C collar in place. General: cooperative, comfortable, no acute distress, alert and awake O rientation/consciousness: patient oriented x3 Limitations: no limitations HEENT: Head: Yes normal to inspection, Yes No palpable skull fracture present, Yes normocephalic, Yes atraumatic, No abrasion, No Maynard's sign, No raccoon eyes, No scalp tenderness and No periorbital ecchymosis Ears: hearing grossly normal bilaterally General nose exam: Normal external nose present and Normal septum present Mouth: tongue normal and moist mucous membranes abnormal Eyes: General: appearance normal, both eyes and all related structures P upils: Equal, round and reactive pupils present EOM: EOMs intact bilaterally Direct Ophthalmoscopy: normal light reflex Neck: Other: cervical collar in place upon initial assessment. Neck: Yes normal visual inspection, Yes full ROM and Yes no meningeal signs Chest: Chest palpation & inspection: normal inspection of the chest and normal palpation of entire chest wall Resp: Effort & Inspection: normal respiratory effort, able to speak in complete sentences and symmetric chest movement Auscultation: clear to auscultation bilaterally, no rales, no rhonchi and no wheezes Cardio: Rate: regular rate Rhythm: regular rhythm Heart sounds: S1 normal heart sound present and S2 normal heart sound present Peripheral pulses: Peripheral pulses 2+ throughout GI: Inspection: Yes normal to inspection Palpation (GI): Soft to palpation, nontender, no guarding, hepatosplenomegaly present and No Rebound tenderness present Skin: General skin exam: no rashes or lesions noted Neuro: Other: Normal finger to nose, heel to ramey. General: patient oriented x3, moves all extremities and no meningeal signs Cranial nerves: Yes CN's II-XII intact bilaterally and Yes Equal, round and reactive pupils present Extrem: General: Yes normal to inspection, Yes full ROM and Yes capillary refill normal Course Course Course Narrative: 1516-- CBC without anemia or leukocytosis. Coags WNL. Chemistry without acute electrolyte abnormality requiring intervention. Troponin negative. BNP WNL. EKG showing normal sinus rhythm with a rate of 70 bpm, normal QT, no acute ischemic changes. Negative covid and flu. > patient recently seen in our ED for subdural hematoma s/p fall and transferred to [facility]. 1628-- CT cervical spine without acute fracture, showing chronic degenerative changes. CT head/brain showing small acute right subdural hematoma within the right frontal lobe, unchanged since from 5 days ago. This is unlikely a new acute finding. I do not suspect new subdural hematoma, patient's physical exam is nonfocal. > will obtain orthostatic vital signs give IV fluids. > patient still complaining of headache and dizziness. Will order Tylenol and meclizine. 1644-- Case signed out to my colleague Gloria Fernández NP. Reevaluation(s) Reevaluation #1: Patient signed out by HIRAM Juarez. Patient reports decreased dizziness after IV fluids and meclizine. No orthostatic intolerance noted on orthostatic vital signs. Patient's mother and waste disposal leakage tester report that patient is currently living at short term rehab and is scheduled for PT evaluation there tomorrow. Both patient, family, and waste disposal leakage tester are comfortable with discharge back to the [facility] facility at this time. Time: 17:54 Medications Administered Discontinued Medications Generic Name Dose Route Start Last Admin Trade Name Maren PRN Reason Stop Dose Admin Acetaminophen 975 mg 07/09/23 15:48 07/09/23 16:02 Acetaminophen 325 Mg Tablet PO 07/09/23 15:49 975 mg ONCE ONE Administration Sodium Chloride 1,000 mls @ 999 mls/hr 07/09/23 16:45 07/09/23 17:57 Ns IV 07/09/23 17:45 Infused .Q1H1M TRI Infusion Meclizine HCl 25 mg 07/09/23 16:40 07/09/23 17:33 Meclizine Hcl 25 Mg Tablet PO 07/09/23 16:41 Not Given ONCE ONE Medical Decision Making Medical Decision Making MDM Narrative: 53 year old female with PMHx significant for seizure disorder, conversion disorder, syncope, FRONT END ARCHITECT shunt migraines, and subdural hematoma presenting to the ED today via EMS s/p witnessed trip and fall with + head strike, on aspirin.VSS. nontoxic appearing, in NAD. No midline spinous tenderness. No step off. No paraspinal muscle tenderness. Exam nonfocal. Cerebellum intact. Clinical concern for ICH vs acute on chronic subdural hematoma. Clinical suspicion for vertigo vs dehydration. Unlikely CVA/TIA or cerebellar stroke. Plan at this time is to obtain basic labs, CT head/C-spine, orthostatic vital signs, IVF, pain control Differential Diagnosis Differential Diagnoses: The differential diagnosis associated with the presentation includes As above. Admission/Observation Consideration of admission/observation: Escalation of care including admission/observation considered In this 53 year old with recent subdural hematoma and new fall + head strike, admission was considered. Lab Data MDM Lab Attestation statement: I reviewed the patient's lab results. As above. 07/09/23 14:22 07/09/23 14:22 Labs: Lab Results 07/09/23 Range/Units 14:22 WBC 7.3 (4.8-10.8) X10*3/uL RBC 4.18 L (4.20-5.50) X10*6/uL Hgb 12.7 (12.0-16.0) g/dl Hct 39.9 (37.0-47.0) % MCV 95.5 (80.0-98.0) fL MCH 30.4 (27.0-33.0) pg MCHC 31.8 (31.0-35.0) g/dl RDW 14.1 (11.0-16.0) % Plt Count 206 (160-400) X10*3/uL MPV 9.6 (9.4-12.3) fL Immature Gran % (Auto) 0.3 (0.0-0.4) % Neut % (Auto) 57.6 (45-73) % Lymph % (Auto) 26.9 (20-40) % [place] % (Auto) 6.2 (2-11) % Eos % (Auto) 8.4 H (0-4) % Baso % (Auto) 0.6 (0-2) % Lymph # (Auto) 2.0 (1.2-4.9) X10*3/uL [place] # (Auto) 0.5 (0.1-1.2) X10*3/uL Eos # (Auto) 0.6 H (0.0-0.4) X10*3/uL Baso # (Auto) 0.0 (0.0-0.2) X10*3/uL Abs Immat Gran (auto) 0.02 (0.00-0.03) X10*3/uL Absolute Neuts (auto) 4.2 (2.0-8.3) x10*3/uL Absolute Nucleated RBC 0.000 (0.0-0.012) X10*3/uL Nucleated RBC % (auto) 0.0 (0.0-0.2) /100WBC PT 11.9 (11.1-13.3) SEC INR 1.0 (0.9-1.1) Sodium 137 (135-145) mmol/L Potassium 3.8 (3.3-5.1) mmol/L Chloride 103 (96-108) mmol/L Carbon Dioxide 25 (22-29) mmol/L Anion Gap 13 (12-20) BUN 15 (9-16) mg/dL Creatinine 0.75 (0.5-1.4) mg/dL Estim Creat Clear Calc 88.6 Estimated GFR > 60 Random Glucose 151 H (60-115) mg/dL Calcium 9.7 (8.4-10.2) mg/dL Magnesium 1.9 (1.6-2.6) mg/dL Total Bilirubin 0.2 (0.0-1.0) mg/dL AST 8 (5-31) U/L ALT 10 (0-31) U/L Alkaline Phosphatase 117 (39-117) U/L Ammonia 21 (13-55) umol/L Total Creatine Kinase 19 L (26-140) U/L Troponin I High Sens < 2.7 (<3.5-17.0) ng/L B-Natriuretic Peptide < 10 (<100) pg/mL Total Protein 6.9 (6.5-8.0) g/dL Albumin 3.6 (3.5-5.0) g/dL Lipase 19 (8-78) U/L COVID-19 (NORMA) Negative (Negative) COVID-19 Clin Com See Note Influenza Type A (SAQIB) Negative (Negative) Influenza Type B (SAQIB) Negative (Negative) Influenza A & B Note See Note Independent Interpretation I performed an independent interpretation of an: EKG and CT Scan Interpretation: EKG showing normal sinus rhythm with a rate of 70 ppm, QT of 412, no acute ischemic changes, unchanged when compared to EKG from [address] head without acute intracranial pathology, agree with radiologist's interpretation. CT c spine without acute fracture, agree with radiologist's interpretation. Radiology Impression Discussion of test interpretation with radiology: I have reviewed the radiologist's reading. Radiologist Impression: CT cervical spine wo IV con IMPRESSION: Degenerative changes. No fracture or dislocation. Fleischner guidelines were followed. CT head/brain/c spine wo IV con IMPRESSION: No acute findings. Small acute right subdural hematoma adjacent to the right frontal lobe unchanged from most recent exam 07/04/2023. No new hemorrhage. Independent Historian Clinical information obtained from an independent historian. History obtained from or confirmed by: Parent (mother), EMS and Other (waste disposal leakage tester) External Record Review External record reviewed: Inpatient record, Office record, Outpatient record, Prior outpatient labs, Prior outpatient radiology, Primary care record and Outside ED record Prescription Management I considered prescription management with: Other (antiemetic) Chronic Conditions Patient?s care impacted by: Other (seizure) Critical Care Time Critical Care Time Critical Care Time: No Discharge Plan Discharge Clinical Impression: Fall Patient Disposition: [facility] Transfer Details: back to [facility] Prescriptions: No Action lamotrigine 150 mg tablet 150 mg PO BID trazodone 50 mg tablet 50 mg PO BEDTIME citalopram 10 mg tablet 30 mg PO DAILY quetiapine 100 mg tablet 100 mg PO BID solifenacin 10 mg tablet 10 mg PO DAILY lamotrigine 100 mg tablet 100 mg PO BID quetiapine 50 mg tablet 50 mg PO BID@0900,1600 cetirizine 10 mg tablet 10 mg PO DAILY PRN (Reason: allergy symptoms) Qty: 14 0RF clonazepam [Klonopin] 0.5 mg tablet 0.25 mg PO DAILY PRN (Reason: Agitation) melatonin 3 mg tablet 3 mg PO BEDTIME multivitamin [Daily-Saira] Tablet 1 tab PO QAM polyethylene glycol 3350 [Miralax] 17 gram/dose Powder 17 g PO DAILY PRN (Reason: Constipation) albuterol sulfate 90 mcg/actuation Hfa Aerosol Inhaler 2 puff INHALATION Q6H PRN (Reason: Shortness Of Breath Or Wheezing) docusate sodium 100 mg Tablet 500 mg PO QAM fiber Tablet,Chewable 1 tab PO BID ferrous gluconate 324 mg (37.5 mg iron) Tablet 324 mg PO DAILY Interventions: ED Discharge Assessment Last Done: 07/09/23 18:50 Discharge Date/Time: 07/09/23 18:51
[2023-07-09 15:44] VITALS: BP 113/76; PULSE 66; RESP 18; O2SAT 96
[2023-07-09] MEDS: Acetaminophen 325 MG TABLET 975 MG PO (16:02)
--- NOTE | 2023-07-09 16:07 | PC.NURSE ---
PA at bedside, C-collar removed
[2023-07-09] MEDS: 0.9 % Sodium Chloride 1,000 ML 999 ML IV (16:48)
--- NOTE | 2023-07-09 16:50 | PC.NURSE ---
pt refused meclizine at this time. pt reports she is not dizzy so does not want it
[2023-07-09 17:39] VITALS: BP 106/70; PULSE 74
[2023-07-09 17:41] VITALS: BP 98/74; PULSE 78
[2023-07-09 17:43] VITALS: BP 115/71; PULSE 74
--- NOTE | 2023-07-09 18:47 | PC.NURSE ---
report given to facility [facility]
[2023-07-12 02:08] LABS: Prolactin 26.4 ng/mL
== END 2023-07-09 18:51 ==
PROVIDERS: Physician Assistant Medical; Emergency Provider Emergency Medicine; PCP Family Medicine
DX: S09.90XA Unspecified injury of head, initial encounter (principal); R42 Dizziness and giddiness; R51.9 Headache, unspecified; M54.2 Cervicalgia; R06.02 Shortness of breath; R55 Syncope and collapse; W01.10XA Fall on same level from slipping, tripping and stumbling with subsequent striking against unspecified object, initial encounter; Y93.9 Activity, unspecified; Y92.9 Unspecified place or not applicable; Y99.9 Unspecified external cause status; Z20.822 Contact with and (suspected) exposure to COVID-19; Z20.828 Contact with and (suspected) exposure to other viral communicable diseases; Z87.820 Personal history of traumatic brain injury; Z79.01 Long term (current) use of anticoagulants; Z79.899 Other long term (current) drug therapy
CPT/HCPCS: 36415; 70450; 72125; 80053; 82140; 82550; 83690; 83735; 83880; 84146; 84484; 85025; 85610; 87502; 87635; 93005; 99285

== ENCOUNTER 2023-12-12 18:44 | Emergency (ER) | payer MEDICARE, MEDICAID, SELFPAY ==
--- NOTE | ~2023-12-12 | CT_ITS ---
EXAMINATION: CT HEAD WITHOUT CONTRAST (STROKE PROTOCOL) CLINICAL INFORMATION: Stroke protocol. Seizure, aphasia, clinical concern for hemorrhage COMPARISON: Portions of previous CT 07/09/23 TECHNIQUE: Contiguous axial imaging was performed from the skull base to vertex without intravenous administration of contrast. This CT examination was performed using dose optimization techniques as appropriate, variously including the following: *Automated exposure control *Adjustment of mA and/or kV according to patient size (this includes techniques or standardized protocols for targeted exams where dose is matched to indication/reason for exam; i.e. extremities or head) *Use of iterative reconstruction technique DLP: 725 mGy-cm FINDINGS: There is a catheter traversing the right temporal bone with tip crossing the midline into the left basal ganglia region. This traverses the region of the lateral ventricles. There is a catheter entering the posterior left occipital region with the tip projecting posteriorly near the midline on the left. Some segments of the catheters are not well visualized or are not opaque. There is no evidence of acute hemorrhage. The extra-axial spaces are prominent but unchanged. The sulci overlying the posterior convexities are prominent but unchanged. Mild relatively higher density in the subdural region similar to previous. There is some dural calcification. The frontal horns and lateral ventricles are relatively decompressed but unchanged. The atria of the lateral ventricles are prominent. The basilar cisterns are visualized. There is no fluid level. The region of the foramen magnum is not optimally evaluated. CT/CT head for stroke IMPRESSION: Multiple chronic abnormalities with shunt catheters present. Sulcal prominence. No new hemorrhage or new acute infarct. This critical result was discussed with Ashvin Stroud at 1918 hours on 12/12/23. It was ascertained that the content and urgency of the report was understood at the time of direct communication.
--- NOTE | 2023-12-12 18:49 | ECG_ITS ---
Test Reason : STROKE Blood Pressure : / mmHG Vent. Rate : 069 BPM Atrial Rate : 069 BPM P-R Int : 184 ms QRS Dur : 088 ms QT Int : 430 ms P-R-T Axes : 027 006 022 degrees QTc Int : 460 ms Normal sinus rhythm Normal ECG When compared with ECG of 09-JUL-2023 14:24, Nonspecific T wave abnormality now evident in Anterior leads Referred By: Ashvin Stroud Electronically Signed By:Cory Siegel
--- NOTE | 2023-12-12 18:49 | ED.NEUROSD ---
HPI - Neuro Symptoms/Deficit General Chief Complaint: Stroke Stated Complaint: stroke Time Seen by Provider: 12/12/23 18:48 Source: EMS Mode of arrival: EMS Limitations: other (Patient not answering questions but was able to state her name) History of Present Illness HPI Narrative: 53-year-old female history of cervical disc disorder, generalized muscle weakness, hydrocephalus, hyperlipidemia, asthma, conversion disorder, anxiety, insomnia, hypertension, who was brought to emergency department by EMS for evaluation of seizure and altered mental status. Patient is a long-term resident of the [facility]. Patient has been compliant with her medications. Patient apparently had a seizure which lasted approximately 5 minutes. She was not ill prior to the seizure and she does have a known seizure disorder. Paramedics noted the patient had right arm weakness and was having difficulty talking that there were not sure about her baseline ability to speak. Patient was made a stroke alert and I evaluated the patient on the assistant manager stretcher. She was able to tell me her name. She was able to follow simple commands. She did not seem to have any focal deficits. Patient was transferred to a waiting bed and her weight is 88.8 kg. Patient was sent directly to the CT scan for evaluation of stroke versus bleed. Related Data Home Medications Medication Instructions Recorded Confirmed clonazepam 0.5 mg tablet (Klonopin) 0.25 mg PO DAILY PRN Agitation 01/21/23 02/21/23 melatonin 3 mg tablet 3 mg PO BEDTIME 01/21/23 02/21/23 albuterol sulfate 90 mcg/actuation 2 puff inhalation Q6H PRN 01/22/23 02/21/23 aerosol inhaler Shortness Of Breath Or Wheezing docusate sodium 100 mg tablet 500 mg PO QAM 01/22/23 02/21/23 ferrous gluconate 324 mg (37.5 mg 324 mg PO DAILY 01/22/23 02/21/23 iron) tablet fiber 1 tab PO BID 01/22/23 02/21/23 multivitamin (Daily-Saira tablet) 1 tab PO QAM 01/22/23 02/21/23 polyethylene glycol 3350 17 17 g PO DAILY PRN Constipation 01/22/23 02/21/23 gram/dose oral powder (Miralax) citalopram 10 mg tablet 30 mg PO DAILY 02/21/23 02/22/23 lamotrigine 150 mg tablet 150 mg PO BID 02/21/23 02/21/23 quetiapine 100 mg tablet 100 mg PO BID 02/21/23 02/21/23 solifenacin 10 mg tablet 10 mg PO DAILY 02/21/23 02/21/23 trazodone 50 mg tablet 50 mg PO BEDTIME 02/21/23 02/21/23 lamotrigine 100 mg tablet 100 mg PO BID 02/22/23 02/22/23 quetiapine 50 mg tablet 50 mg PO BID@0900,1600 02/22/23 02/22/23 Previous Rx's Medication Instructions Recorded cetirizine 10 mg tablet 10 mg PO DAILY PRN allergy 04/13/23 symptoms #14 tabs Allergies Allergy/AdvReac Type Severity Reaction Status Date / Time levetiracetam [From [facility]] Allergy Unknown UNKNOWN Verified 12/12/23 19:13 Review of Systems Review of Systems: Yes Unobtainable due to mental status PMFSH Past Medical History Medical History Chronic constipation Overactive bladder Mild persistent asthma Psychogenic nonepileptic seizure Conversion disorder Depression with anxiety Unspecified psychosis Obesity Social History Social History Alcohol intake: never Patient Tobacco Use Status: Never used Tobacco Advance Directives: No Advance Directives Information Provided: No service: No Current occupational status: disabled Physical Exam Vital Signs: Vital Signs: Last Vital Signs Temp 97.6 F 12/12/23 19:13 Pulse 71 12/12/23 19:13 Resp 17 12/12/23 19:13 BP 106/67 12/12/23 19:13 Pulse Ox 95 12/12/23 19:13 O2 Del Method Room Air 12/12/23 19:13 BMI result Body Mass Index 35.8 Exam: General: Awake, alert, oriented to person Head: Normocephalic, atraumatic EENT: PERRL, Lids normal, sclera normal, conjunctiva normal, nose normal , ears normal, throat without erythema or exudates Neck: Supple, no adenopathy Lung: breath sounds symmetric, no wheezing, rales or rhonchi Chest: symmetric movement, nontender Heart: regular rate and rhythm, normal S1, S2 no murmurs or rubs Abdomen: soft, non-tender, nondistended, normal bowel sounds Back: no vertebral tenderness, no CVAT Extremities: no deformities, moves all extremities symmetrically Neuro: Awake, alert, oriented to person, was able to tell me her name but did not answer questions, moves all extremities symmetrically Medical Decision Making Medical Decision Making [facility] Narrative: 53-year-old female history of cervical disc disorder, generalized muscle weakness, hydrocephalus, hyperlipidemia, asthma, conversion disorder, anxiety, insomnia, hypertension, who was brought to emergency department by EMS for evaluation of seizure and altered mental status. EMS reports the patient had a 5 minute seizure and patient appeared to have right-sided weakness with difficulty talking during transport therefore she was made a stroke alert. Patient was able to tell me her name but would not answer questions. Patient did follow simple commands. Her exam appears to be nonfocal. NIH stroke scale was 2. Patient was transferred from stretcher to waiting bed and then to CT scan to rule out stroke versus bleed. Patient's point of care glucose was 168 Differential diagnosis: ?Includes but is not limited to stroke, seizure, Troy's paralysis, intracranial bleed, electrolyte abnormality, anemia Following evaluation was ordered: CT scan of the brain stroke protocol, EKG, PT/INR-stroke, point of care glucose, CMP, BNP, liver panel, CK, magnesium, PT/INR, PTT, troponin, urinalysis Patient was treated with the following: Ativan 1 mg orally Course: 20:45 My interpretation patient's laboratory evaluation is as follows: CBC was normal. CMP was normal. High sensitive troponin I was below detectable limits. Coags were normal. COVID-19, influenza and RSV were negative. CT scan of the brain without IV contrast, stroke protocol did not reveal any acute findings. Patient does have a RUG BACKING STENCILER shunt but ventricles do not appear to be enlarged. Patient is currently awake and alert and able to talk without any difficulty. Patient's symptoms may have been caused by Troy's paralysis, prolonged postictal period. Patient was treated with Ativan 1 mg orally. She was able to drink juice and eat crackers. Patient will be discharged back to her care facility. Admission/Observation Consideration of admission/observation: Escalation of care including admission/observation considered Lab Data [facility] Lab Attestation statement: I reviewed the patient's lab results. 12/12/23 19:09 12/12/23 19:48 Labs: Lab Results 12/12/23 12/12/23 12/12/23 Range/Units 18:50 19:09 19:48 WBC 7.7 (4.8-10.8) X10*3/uL RBC 4.01 L (4.20-5.50) X10*6/uL Hgb 12.2 (12.0-16.0) g/dl Hct 37.3 (37.0-47.0) % MCV 93.0 (80.0-98.0) fL MCH 30.4 (27.0-33.0) pg MCHC 32.7 (31.0-35.0) g/dl RDW 13.2 (11.0-16.0) % Plt Count 198 (160-400) X10*3/uL MPV 9.7 (9.4-12.3) fL Immature Gran % (Auto) 0.7 H (0.0-0.4) % Neut % (Auto) 54.1 (45-73) % Lymph % (Auto) 32.3 (20-40) % [place] % (Auto) 6.5 (2-11) % Eos % (Auto) 5.9 H (0-4) % Baso % (Auto) 0.5 (0-2) % Lymph # (Auto) 2.5 (1.2-4.9) X10*3/uL [place] # (Auto) 0.5 (0.1-1.2) X10*3/uL Eos # (Auto) 0.5 H (0.0-0.4) X10*3/uL Baso # (Auto) 0.0 (0.0-0.2) X10*3/uL Abs Immat Gran (auto) 0.05 H (0.00-0.03) X10*3/uL Absolute Neuts (auto) 4.2 (2.0-8.3) x10*3/uL Absolute Nucleated RBC 0.000 (0.0-0.012) X10*3/uL Nucleated RBC % (auto) 0.0 (0.0-0.2) /100WBC PT 10.6 L (11.1-13.3) SEC INR 0.9 (0.9-1.1) APTT 34.4 (26.0-36.8) SEC Sodium 140 (135-145) mmol/L Potassium 3.4 (3.3-5.1) mmol/L Chloride 107 (96-108) mmol/L Carbon Dioxide 27 (22-29) mmol/L Anion Gap 9 L (12-20) BUN 15 (9-16) mg/dL Creatinine 0.74 (0.5-1.4) mg/dL Estim Creat Clear Calc 93.1 Estimated GFR > 60 POC Glucose 168 H (60-115) mg/dL Random Glucose 105 (60-115) mg/dL Calcium 9.4 (8.4-10.2) mg/dL Magnesium 1.6 (1.6-2.6) mg/dL Total Bilirubin 0.3 (0.0-1.0) mg/dL Direct Bilirubin 0.1 (0.0-0.5) mg/dL AST 10 (5-31) U/L ALT 14 (0-31) U/L Alkaline Phosphatase 107 (39-117) U/L Total Creatine Kinase 81 (26-140) U/L Troponin I High Sens < 2.7 (<3.5-17.0) ng/L Total Protein 6.9 (6.5-8.0) g/dL Albumin 3.7 (3.5-5.0) g/dL Independent Interpretation I performed an independent interpretation of an: EKG Interpretation: My independent interpretation patient's 12 EKG done at 19:17 hours is as follows: Normal sinus rhythm rate of 69, normal DC interval, QRS duration QTC interval, no ST segment elevation, no ST segment depression, no significant T-wave abnormalities, no PACs, no PVCs. Radiology Impression Discussion of test interpretation with radiology: I have reviewed the radiologist's reading. Radiologist Impression: EXAMINATION: CT HEAD WITHOUT CONTRAST (STROKE PROTOCOL) CLINICAL INFORMATION: Stroke protocol. Seizure, aphasia, clinical concern for hemorrhage COMPARISON: Portions of previous CT 07/09/23 FINDINGS: There is a catheter traversing the right temporal bone with tip crossing the midline into the left basal ganglia region. This traverses the region of the lateral ventricles. There is a catheter entering the posterior left occipital region with the tip projecting posteriorly near the midline on the left. Some segments of the catheters are not well visualized or are not opaque. There is no evidence of acute hemorrhage. The extra-axial spaces are prominent but unchanged. The sulci overlying the posterior convexities are prominent but unchanged. Mild relatively higher density in the subdural region similar to previous. There is some dural calcification. The frontal horns and lateral ventricles are relatively decompressed but unchanged. The atria of the lateral ventricles are prominent. The basilar cisterns are visualized. There is no fluid level. The region of the foramen magnum is not optimally evaluated. IMPRESSION: Multiple chronic abnormalities with shunt catheters present. Sulcal prominence. No new hemorrhage or new acute infarct. This critical result was discussed with Ashvin Stroud at 1918 hours on 12/12/23. It was ascertained that the content and urgency of the report was understood at the time of direct communication. Dictated By: Kirk Sanabria MD NIH Stroke Scale Internal: Initial- Upon Arrival Level of Consciousness: Alert Level of Consciousness Questions: Answers neither question correctly Level of Consciousness Commands: Performs both tasks correctly Best Gaze: Normal Visual: No visual loss Facial Palsy: Normal Motor Arm (Right): No drift Motor Arm (Left): No drift Motor Leg (Right): No drift Motor Leg (Left): No drift Limb Ataxia: Absent Sensory: Normal Best Language: No aphasia Dysarthia: Normal Extinction and Inattention: No abnormality Score: 2 Discharge Plan Discharge Clinical Impression: Seizure, Troy's paralysis, Anxiety Patient Disposition: [facility] Transfer Details: Back to her rehab facility, [facility] Prescriptions: No Action lamotrigine 150 mg tablet 150 mg PO BID trazodone 50 mg tablet 50 mg PO BEDTIME citalopram 10 mg tablet 30 mg PO DAILY quetiapine 100 mg tablet 100 mg PO BID solifenacin 10 mg tablet 10 mg PO DAILY lamotrigine 100 mg tablet 100 mg PO BID quetiapine 50 mg tablet 50 mg PO BID@0900,1600 cetirizine 10 mg tablet 10 mg PO DAILY PRN (Reason: allergy symptoms) Qty: 14 0RF clonazepam [Klonopin] 0.5 mg tablet 0.25 mg PO DAILY PRN (Reason: Agitation) melatonin 3 mg tablet 3 mg PO BEDTIME multivitamin [Daily-Saira] Tablet 1 tab PO QAM polyethylene glycol 3350 [Miralax] 17 gram/dose Powder 17 g PO DAILY PRN (Reason: Constipation) albuterol sulfate 90 mcg/actuation Hfa Aerosol Inhaler 2 puff INHALATION Q6H PRN (Reason: Shortness Of Breath Or Wheezing) docusate sodium 100 mg Tablet 500 mg PO QAM fiber Tablet,Chewable 1 tab PO BID ferrous gluconate 324 mg (37.5 mg iron) Tablet 324 mg PO DAILY
[2023-12-12 19:06] LABS: Glucose, Whole Blood 168 mg/dL (60-115)
[2023-12-12 19:13] VITALS: BP 106/67; BP 110/70; PULSE 71; PULSE 73; RESP 17; TEMP 36.4; O2SAT 95; O2SAT 97; BMI 35.8
[2023-12-12 19:15] LABS: MANUAL DIFF FLAG NO
[2023-12-12 19:16] LABS: Basophils Percent Auto 0.5 % (0-2); Eosinophils Absolute Auto 0.5 X10*3/uL (0.0-0.4); Eosinophils Percent Auto 5.9 % (0-4); Hematocrit 37.3 % (37.0-47.0); Hemoglobin 12.2 g/dl (12.0-16.0); Imm Gran Abs Auto 0.05 X10*3/uL (0.00-0.03); Imm Gran Pct Auto 0.7 % (0.0-0.4); Lymphocytes Absolute Auto 2.5 X10*3/uL (1.2-4.9); Lymphocytes Percent Auto 32.3 % (20-40); Mean Corpuscular HGB Conc 32.7 g/dl (31.0-35.0); Mean Corpuscular Hemoglobin 30.4 pg (27.0-33.0); Mean Platelet Volume 9.7 fL (9.4-12.3); Monocytes Absolute Auto 0.5 X10*3/uL (0.1-1.2); Monocytes Percent Auto 6.5 % (2-11); Neutrophils Absolute Auto 4.2 x10*3/uL (2.0-8.3); Neutrophils Percent Auto 54.1 % (45-73); Platelet Count 198 X10*3/uL (160-400); Red Blood Count 4.01 X10*6/uL (4.20-5.50); Red Cell Distribution Width 13.2 % (11.0-16.0); White Blood Count 7.7 X10*3/uL (4.8-10.8)
[2023-12-12 19:23] LABS: INTERNATIONAL NORM RATIO 0.9 (0.9-1.1); Prothrombin Time 10.6 SEC (11.1-13.3)
[2023-12-12 19:25] LABS: Partial Thromboplastin Time 34.4 SEC (26.0-36.8)
[2023-12-12 19:28] LABS: Stroke Lab Use COMPLETE
[2023-12-12 19:43] LABS: Troponin-I High Sensitivity < 2.7 ng/L (<3.5-17.0)
[2023-12-12 20:20] LABS: Alanine Aminotransferase 14 U/L (0-31); Albumin Level 3.7 g/dL (3.5-5.0); Alkaline Phosphatase 107 U/L (39-117); Anion Gap 9 (12-20); Aspartate Amino Transferase 10 U/L (5-31); Bilirubin Direct 0.1 mg/dL (0.0-0.5); Bilirubin Total 0.3 mg/dL (0.0-1.0); Blood Urea Nitrogen 15 mg/dL (9-16); Calcium 9.4 mg/dL (8.4-10.2); Carbon Dioxide 27 mmol/L (22-29); Chloride 107 mmol/L (96-108); Creatinine Clr Calc Pharmacy 93.1; Estimated Glomerular Filt Rate > 60; Glucose Random 105 mg/dL (60-115); Magnesium 1.6 mg/dL (1.6-2.6); Potassium 3.4 mmol/L (3.3-5.1); Sodium 140 mmol/L (135-145); Total Protein 6.9 g/dL (6.5-8.0)
[2023-12-12] MEDS: LORazepam 1 MG TABLET PO (21:21)
[2023-12-12 21:25] VITALS: BP 101/62; PULSE 74; RESP 18; TEMP 36.6; O2SAT 97
--- NOTE | 2023-12-12 21:59 | PC.NURSE ---
Nursing report given to Tom at [facility] as pt is returning via EMS.
[2023-12-13 07:21] LABS: Prothrombin Time Whole Bld POC 13.2 sec (11.1-13.5); ~PT, ~INR - Anti Coag Clinic 0.9 (0.9-1.1)
== END 2023-12-12 21:59 ==
PROVIDERS: Emergency Provider Emergency Medicine Emergency Medical Services
DX: R56.9 Unspecified convulsions (principal); G83.84 Todd's paralysis (postepileptic); F41.1 Generalized anxiety disorder; F43.0 Acute stress reaction; R47.01 Aphasia; R29.702 NIHSS score 2; Z79.899 Other long term (current) drug therapy
CPT/HCPCS: 36415; 70450; 80048; 80076; 82550; 82947; 83735; 84484; 85025; 85610; 85730; 93005; 99283; 99284; 99285

== ENCOUNTER → 2023-12-12 18:49 | Outpatient (BNV) | payer MEDICARE, MEDICAID, SELFPAY | PROVIDERS: Emergency Provider Emergency Medicine Emergency Medical Services; Visit Provider Internal Medicine Cardiovascular Disease | DX: I63.9 Cerebral infarction, unspecified (principal) | CPT/HCPCS: 93010 ==

== ENCOUNTER 2024-09-19 14:09 | Inpatient (IN) | payer MEDICARE, MEDICAID, SELFPAY ==
--- NOTE | ~2024-09-19 | XR_ITS ---
EXAMINATION: XR CHEST CLINICAL INFORMATION: Stroke Protocol COMPARISON: 04/13/2023. TECHNIQUE: Frontal view of the chest was obtained. FINDINGS: The cardiac, hilar, and mediastinal contours are normal. Shunt tubing again noted coursing along the bilateral anterior thorax. There is abandoned shunt tubing medial right thorax. Lungs are clear bilaterally. No effusions or pneumothorax. Degenerative changes bilateral shoulder joints and throughout the spine. No suspicious bone lesions. No soft tissue abnormalities. XR/XR chest 1V IMPRESSION: No active pulmonary disease. Electronically signed by: Fredo Story MD 09/19/2024 03:29 PM EST
--- NOTE | ~2024-09-19 | CT_ITS ---
EXAMINATION: CTA NECK WITH CONTRAST (STROKE) CTA BRAIN WITH CONTRAST (STROKE) CLINICAL INFORMATION: Weakness COMPARISON: CTA head and neck on 05/24/2023 TECHNIQUE: CTA of the head and neck was performed in the axial plane from the mediastinum to the skull vertex using 70 mL Omnipaque 350 intravenous contrast. Additional reformatted multiplanar images including maximum intensity projection MIP images are generated on the CT workstation. This CT examination was performed using dose optimization techniques as appropriate, variously including the following: *Automated exposure control *Adjustment of mA and/or kV according to patient size (this includes techniques or standardized protocols for targeted exams where dose is matched to indication/reason for exam; i.e. extremities or head) *Use of iterative reconstruction technique DLP: 1492 mGy-cm FINDINGS: The degree of stenosis determined by criteria similar to NASCET. CTA NECK: Three-vessel aortic arch. The innominate and bilateral subclavian arteries are patent. The origins and cervical segments of the common carotid arteries as well as the common carotid artery bifurcations are patent bilaterally. The cervical segments of the internal carotid arteries are also patent bilaterally. The origins and cervical segments of the vertebral arteries are patent bilaterally. No hemodynamically significant stenosis, dissection, or aneurysm. The visualized branches of the external carotid arteries are unremarkable. CTA HEAD: Evaluation is significantly limited secondary to suboptimal contrast bolus timing as well as venous contamination. Anterior circulation: The petrous, cavernous, and supraclinoid segments of the internal carotid arteries are patent bilaterally. The major branches of the anterior and middle cerebral arteries as well as anterior communicating artery complex are patent. No large vessel occlusion, saccular aneurysm, or dissection. Posterior circulation: The intracranial vertebral arteries are patent bilaterally. The basilar artery is normal in course and caliber. The posterior cerebral and superior cerebellar arteries arise normally from the basilar summit. No aneurysm. On delayed imaging, the venous structures demonstrate normal contrast opacification. No filling defect. No abnormal intracranial enhancement. Soft tissues: Decreased size of ovoid soft tissue lesion in the medial aspect of the extraconal fat of the postseptal right orbit with persistent distortion of the medial rectus muscle. No suspicious cervical adenopathy. Lungs: Clear. Bones: No acute osseous abnormality. No lytic or blastic osseous lesions. Degenerative changes of the visualized spine. CT/CT angio head neck STROKE IMPRESSION: Within the limitations of this study, -CTA head demonstrate no large vessel occlusion, saccular aneurysm, or dissection. Decreased size of ovoid soft tissue lesion in the medial aspect of the extraconal fat of the postseptal right orbit with persistent distortion of the medial rectus muscle. -CTA neck demonstrates no hemodynamically significant stenosis, dissection, or aneurysm. Electronically signed by: Yenifer Thomas MD 09/19/2024 03:12 PM [facility]
--- NOTE | ~2024-09-19 | CT_ITS ---
EXAMINATION: CT HEAD WITHOUT CONTRAST (STROKE PROTOCOL) CLINICAL INFORMATION: Stroke protocol. Weakness COMPARISON: 12/12/2023 TECHNIQUE: Contiguous axial imaging was performed from the skull base to vertex without intravenous administration of contrast. This CT examination was performed using dose optimization techniques as appropriate, variously including the following: *Automated exposure control *Adjustment of mA and/or kV according to patient size (this includes techniques or standardized protocols for targeted exams where dose is matched to indication/reason for exam; i.e. extremities or head) *Use of iterative reconstruction technique DLP: 799 mGy-cm FINDINGS: Ventriculostomy drains are seen in into the bilateral occipital horns of the lateral ventricles. There is an additional ventriculostomy drain extending from the right parietal calvarium crossing the midline of the lateral ventricles terminating near the left basal ganglia. There is no evidence of hydrocephalus. There is no evidence of acute intracranial hemorrhage, acute large vessel infarct, midline shift or mass effect. The mauricio-white differentiation is preserved. Atrophy again seen of the bilateral posterior parietal and occipital lobes. There are no extraaxial collections. Osseous structures are intact. Paranasal sinuses and mastoid air cells are well aerated. CT/CT head for STROKE IMPRESSION: 1. No acute intracranial pathology. 2. Ventriculostomy drains in place. No hydrocephalus. This critical result was discussed with Dr. Lopez at 1441 hours on 09/19/2024. It was ascertained that the content and urgency of the report was understood at the time of direct communication. Electronically signed by: Adam Bennett MD 09/19/2024 02:41 PM [facility]
--- NOTE | 2024-09-19 14:15 | ECG_ITS ---
Test Reason : STROKE PROTOCOL Blood Pressure : / mmHG Vent. Rate : 095 BPM Atrial Rate : 095 BPM P-R Int : 134 ms QRS Dur : 072 ms QT Int : 356 ms P-R-T Axes : 064 -13 008 degrees QTc Int : 447 ms Normal sinus rhythm Minimal voltage criteria for LVH, may be normal variant ( R in aVL ) Borderline ECG When compared with ECG of 12-DEC-2023 19:17, ST now depressed in Inferior leads Referred By: Scotty Lopez Electronically Signed By:BETTY ALVAREZ MD
--- NOTE | 2024-09-19 14:16 | ED_ITS ---
HPI - Neuro Symptoms/Deficit General Stated Complaint: STROKE ALERT PER EMS Time Seen by Provider: 09/19/24 14:14 Source: patient Mode of arrival: EMS Limitations: no limitations History of Present Illness HPI Narrative: 54 year old female coming from care home is a full code PMH: cerebral palsy, chronic constipation, personality disorder, seizure chronic encephalopathy who presents to the ER via EMS. Patient per EMS is not acting herself the mother the patient had been at the facility for several hours and has been like that the entire time last time she was seen normal was last night per EMS was having garbled speech her speech has resolved on arrival to the department she is able to push and pull as normal with her upper extremities neuro exam is fine here Onset (ago): day(s) Related Data Home Medications ?Medication ?Instructions ?Recorded ?Confirmed clonazepam 0.5 mg tablet (Klonopin) 0.25 mg PO DAILY PRN Agitation 01/21/23 02/21/23 melatonin 3 mg tablet 3 mg PO BEDTIME 01/21/23 02/21/23 albuterol sulfate 90 mcg/actuation 2 puff inhalation Q6H PRN 01/22/23 02/21/23 aerosol inhaler Shortness Of Breath Or Wheezing docusate sodium 100 mg tablet 500 mg PO QAM 01/22/23 02/21/23 ferrous gluconate 324 mg (37.5 mg 324 mg PO DAILY 01/22/23 02/21/23 iron) tablet fiber 1 tab PO BID 01/22/23 02/21/23 multivitamin (Daily-Saira tablet) 1 tab PO QAM 01/22/23 02/21/23 polyethylene glycol 3350 17 17 g PO DAILY PRN Constipation 01/22/23 02/21/23 gram/dose oral powder (Miralax) citalopram 10 mg tablet 30 mg PO DAILY 02/21/23 02/22/23 lamotrigine 150 mg tablet 150 mg PO BID 02/21/23 02/21/23 quetiapine 100 mg tablet 100 mg PO BID 02/21/23 02/21/23 solifenacin 10 mg tablet 10 mg PO DAILY 02/21/23 02/21/23 trazodone 50 mg tablet 50 mg PO BEDTIME 02/21/23 02/21/23 lamotrigine 100 mg tablet 100 mg PO BID 02/22/23 02/22/23 quetiapine 50 mg tablet 50 mg PO BID@0900,1600 02/22/23 02/22/23 Previous Rx's ?Medication ?Instructions ?Recorded cetirizine 10 mg tablet 10 mg PO DAILY PRN allergy 04/13/23 symptoms #14 tabs Allergies Allergy/AdvReac Type Severity Reaction Status Date / Time levetiracetam [From [facility]] Allergy Unknown UNKNOWN Verified 12/12/23 19:13 Review of Systems Review of Systems: Yes Unobtainable due to mental status PMFSH Past Medical History Medical History Chronic constipation Overactive bladder Mild persistent asthma Psychogenic nonepileptic seizure Conversion disorder Depression with anxiety Unspecified psychosis Obesity Social History Social History Alcohol intake: never Patient Tobacco Use Status: Never used Tobacco service: No Current occupational status: disabled Physical Exam Vital Signs: Neurological exam: CN II- XII tested. Patient is alert and oriented to person place and time. Patient has no dysphagia or dysarthia, denies good vision in all four vision owusu no nystagmus on exam, good strength to upper extremities with normal reflexes to brachioradialis, wrist, patella and achilles. Lower extremities are slightly weak Negative romberg, good finger to nose and heel to ramey. General: Well-appearing well-nourished in no signs of distress HEENT: Normocephalic atraumatic Neck: No signs of JVD, no masses no tenderness or lymphadenopathy Cardiovascular: Regular rate and rhythm Respiratory: Clear to auscultation bilaterally Abdomen: Soft nontender no masses Extremities: Normal pedal pulses no signs of edema Skin: Dry warm no rashes Back: No tenderness full ROM Course Course Course Narrative: Seen by me initially i will sign out to Dr. Schroeder pending re-evaluation labs and ultimate disposition Reevaluation(s) Reevaluation #1: I spoke with [facility] about the CT for stroke which was read as negative. no ELVO Time: 14:40 Time: 14:39 Medical Decision Making Medical Decision Making MDM Narrative: Concern for altered mental status I do not think this is acute stroke with the patient will be worked up as a stroke was came in via EMS stating that she had garbled speech which fortunately has resolved may need admission for complete stroke workup. Differential Diagnosis Differential Diagnoses: The differential diagnosis associated with the presentation includes Concern for altered mental status versus stroke patient has no obvious deficits for me the slurred speech and garbled speech has resolved I will check labs including urinalysis and labs Admission/Observation Consideration of admission/observation: Escalation of care including admission/observation considered Consult Healthcare Provider Management of the patient was discussed with: Hospitalist Lab Data MDM Lab Attestation statement: I reviewed the patient's lab results. Labs: Lab Results 09/19/24 Range/Units 14:13 Whole Blood PT 14.2 H (11.1-13.5) sec Whole Blood INR 1.2 H (0.9-1.1) POC Glucose 100 (60-115) mg/dL Independent Interpretation I performed an independent interpretation of an: EKG, Plain X-Ray and CT Scan Radiology Impression Discussion of test interpretation with radiology: I have reviewed the radiologist's reading. External Record Review External record reviewed: Inpatient record and Office record Critical Care Time Critical Care Time Critical Care Time: Yes Total Critical Care Time: 40 Attestation: Arranging for CT repeat evaluations discussion with radiologist Discharge Plan Discharge Clinical Impression: Acute alteration in mental status Patient Disposition: Still a Patient Prescriptions: No Action lamotrigine 150 mg tablet 150 mg PO BID trazodone 50 mg tablet 50 mg PO BEDTIME citalopram 10 mg tablet 30 mg PO DAILY quetiapine 100 mg tablet 100 mg PO BID solifenacin 10 mg tablet 10 mg PO DAILY lamotrigine 100 mg tablet 100 mg PO BID quetiapine 50 mg tablet 50 mg PO BID@0900,1600 cetirizine 10 mg tablet 10 mg PO DAILY PRN (Reason: allergy symptoms) Qty: 14 0RF clonazepam [Klonopin] 0.5 mg tablet 0.25 mg PO DAILY PRN (Reason: Agitation) melatonin 3 mg tablet 3 mg PO BEDTIME multivitamin [Daily-Saira] Tablet 1 tab PO QAM polyethylene glycol 3350 [Miralax] 17 gram/dose Powder 17 g PO DAILY PRN (Reason: Constipation) albuterol sulfate 90 mcg/actuation Hfa Aerosol Inhaler 2 puff INHALATION Q6H PRN (Reason: Shortness Of Breath Or Wheezing) docusate sodium 100 mg Tablet 500 mg PO QAM fiber Tablet,Chewable 1 tab PO BID ferrous gluconate 324 mg (37.5 mg iron) Tablet 324 mg PO DAILY Print Language: Mongolian
[2024-09-19 14:17] LABS: Prothrombin Time Whole Bld POC 14.2 sec (11.1-13.5); ~PT, ~INR - Anti Coag Clinic 1.2 (0.9-1.1)
[2024-09-19 14:19] LABS: Glucose, Whole Blood 100 mg/dL (60-115)
[2024-09-19 14:33] VITALS: BP 138/86; PULSE 92; O2SAT 99
[2024-09-19] MEDS: iohexoL 350 MG/ML 100 ML INFUS..BTL IV (14:46)
[2024-09-19 14:53] VITALS: BP 114/77; PULSE 95; RESP 17; TEMP 36.6; O2SAT 95; BMI 29.2
[2024-09-19 14:54] LABS: MANUAL DIFF FLAG NO
[2024-09-19 14:55] LABS: Basophils Absolute Auto 0.1 X10*3/uL (0.0-0.2); Basophils Percent Auto 0.6 % (0-2); Eosinophils Absolute Auto 0.1 X10*3/uL (0.0-0.4); Eosinophils Percent Auto 0.7 % (0-4); Hematocrit 31.9 % (37.0-47.0); Hemoglobin 10.4 g/dl (12.0-16.0); Imm Gran Abs Auto 0.09 X10*3/uL (0.00-0.03); Imm Gran Pct Auto 0.7 % (0.0-0.4); Lymphocytes Absolute Auto 1.6 X10*3/uL (1.2-4.9); Lymphocytes Percent Auto 12.4 % (20-40); Mean Corpuscular HGB Conc 32.6 g/dl (31.0-35.0); Mean Corpuscular Hemoglobin 29.7 pg (27.0-33.0); Mean Corpuscular Volume 91.1 fL (80.0-98.0); Mean Platelet Volume 8.9 fL (9.4-12.3); Monocytes Absolute Auto 0.9 X10*3/uL (0.1-1.2); Monocytes Percent Auto 7.4 % (2-11); Neutrophils Absolute Auto 9.8 x10*3/uL (2.0-8.3); Neutrophils Percent Auto 78.2 % (45-73); Platelet Count 357 X10*3/uL (160-400); White Blood Count 12.5 X10*3/uL (4.8-10.8)
[2024-09-19 15:01] LABS: INTERNATIONAL NORM RATIO 1.4 (0.9-1.1); Prothrombin Time 16.8 SEC (10.9-12.4)
[2024-09-19 15:03] LABS: Partial Thromboplastin Time 32.1 SEC (26.0-36.8)
[2024-09-19 15:05] LABS: Stroke Lab Use COMPLETE
[2024-09-19] MEDS: 0.9 % Sodium Chloride 1,000 ML 999 ML IV (15:05)
[2024-09-19 15:14] VITALS: BP 120/78; PULSE 93; RESP 20; TEMP 36.7; O2SAT 95
[2024-09-19 15:18] LABS: Troponin-I High Sensitivity < 2.7 ng/L (<3.5-17.0)
[2024-09-19] MEDS: Aspirin 81 MG TAB.CHEW 324 MG PO (15:28)
[2024-09-19 15:48] LABS: Anion Gap 18 (12-20); Blood Urea Nitrogen 19 mg/dL (9-16); Calcium 9.7 mg/dL (8.4-10.2); Carbon Dioxide 22 mmol/L (22-29); Chloride 106 mmol/L (96-108); Cholesterol 88 mg/dL (<200); Creatinine Clr Calc Pharmacy 79.6; Estimated Glomerular Filt Rate > 60; Ethanol < 10 mg/dL; Glucose Random 93 mg/dL (60-115); HDL Cholesterol 39 mg/dL (>40); LDL Cholesterol Calculated 36 mg/dL (<100); Potassium 4.5 mmol/L (3.3-5.1); Sodium 141 mmol/L (135-145); Triglycerides 66 mg/dL (<150)
--- OUTSIDE RECORDS SUMMARY | 2024-09-19 15:56 | XMS_ITS | Clinical Summary ---
Author Organization Unknown Care Team Providers Care Structural Draftsman Name Role Phone EVE GANDHI, SHELBY Unavailable Unavailable MARY PT, YEMI Unavailable Unavailable [address] OPENINGS INSPECTOR, MARA Unavailable Unavail able MAC RN, BRANDYN Unavailable Unavailable Payers Payer Name Policy Type Policy Number Effective Date Expira tion Date MEDICARE - FORMERLY [facility]/DE - [facility] [id number] Problems Condition Name Condition Details Condition Category Status Onset Date Resolution Date Last Treatment Date Treating Clinician Comments ENCOUNTER FOR OTHER ORTHOPEDIC AFTERCARE Active 10-09 00:00: 00 UNSPECIFIED ATRIAL FIBRILLATION Active 10-09 00:00: 00 HYDROCEPHALU S, UNSPECIFIED Active 10-09 00:00: 00 EPILEPSY, UNSP, NOT INTRACTABLE, WITHOUT STATUS EPILEPTICUS Active 10-09 00:00: 00 CEREBRAL PALSY, UNSPECIFIED Active 10-09 00:00: 00 PRESSURE-IND UCED DEEP TISSUE DAMAGE OF LEFT HEEL Active 10-09 00:00: 00 SPINAL STENOSIS, CERVICAL REGION Active 10-09 00:00: 00 OTHER SPONDYLOSIS WITH RADICULOPATH Y, CERVICAL REGION Active 10-09 00:00: 00 SLEEP APNEA, UNSPECIFIED Active 10-09 00:00: 00 HYPERLIPIDEM IA, UNSPECIFIED Active 10-09 00:00: 00 OBESITY, UNSPECIFIED Active 10-09 00:00: 00 BODY MASS INDEX [BMI] 35.0-35.9, ADULT Active 10-09 00:00: 00 MIGRAINE, UNSP, NOT INTRACTABLE, WITHOUT STATUS MIGRAINOSUS Active 10-09 00:00: 00 ESSENTIAL (PRIMARY) HYPERTENSION Active 10-09 00:00: 00 UNSPECIFIED ASTHMA, UNCOMPLICATE D Active 10-09 00:00: 00 OTHER SPECIFIED ANXIETY DISORDERS Active 10-09 00:00: 00 DEPRESSION, UNSPECIFIED Active 10-09 00:00: 00 PRIMARY INSOMNIA Active 10-09 00:00: 00 UNSPECIFIED DISORDER OF PSYCHOLOGICA L DEVELOPMENT Active 10-09 00:00: 00 CERVICAL DISC DISORDER WITH MYELOPATHY, UNSP CERVICAL REGION Active 10-09 00:00: 00 PRSNL HX OF TIA (TIA), AND CEREB INFRC W/O RESID DEFICITS Active 10-09 00:00: 00 ARTHRODESIS STATUS Active 10-09 00:00: 00 PRESENCE OF CEREBROSPINA L FLUID DRAINAGE DEVICE Active 10-09 00:00: 00 OTHER SUPERVISORY CBP OFFICER (CURRENT) DRUG THERAPY Active 10-09 00:00: 00 CUSTODIAL (CURRENT) USE OF ASPIRIN Active 10-09 00:00: 00 CUSTODIAL (CURRENT) USE OF INHALED STEROIDS Active 10-09 00:00: 00 Problems related to health literacy Active 10-09 00:00: 00 SOCIAL EXCLUSION AND REJECTION Active 10-09 00:00: 00 DEPENDENCE ON WHEELCHAIR Active 10-09 00:00: 00 HISTORY OF FALLING Active 10-09 00:00: 00 Allergies, Adverse Reactions, Alerts Allergy Name Allergy Type Status Severity Reaction(s) Onset Date Inactive Date Treating Clinician Comments KEPPRA Propensity to adverse reactions Active 2023-12 09:27:0 7 Medications Ordered Medication Name Filled Medication Name Start Date Stop Date Current Medication? Ordering Clinician Indication Dosage Frequency Signature (SIG) Comments Components amlodipine 2.5 mg tablet 2022-10 00:00: 00 12-24 16:45 :31 No [id number] Per instruc tions DAILY Per instructio ns DAILY (route: oral) Med Classific ation: Cardiovas cular Therapy Agents atorvastati n 40 mg tablet 2022-10 00:00: 00 07-21 23:59 :00 No [id number] Per instruc tions DAILY Per instructio ns DAILY (route: oral) Med Classific ation: Cardiovas cular Therapy Agents lamotrigine 100 mg tablet 2022-10 00:00: 00 07-21 23:59 :00 No [id number] Per instruc tions 2 TIMES DAILY Per instructio ns 2 TIMES DAILY (route: oral) Med Classific ation: Central Nervous System Agents propranolol 10 mg tablet 2022-10 00:00: 00 07-21 23:59 :00 No [id number] Per instruc tions 2 TIMES DAILY Per instructio ns 2 TIMES DAILY (route: oral) Med Classific ation: Cardiovas cular Therapy Agents quetiapine 300 mg tablet 2022-10 00:00: 00 02-14 23:59 :00 No [id number] Per instruc tions DAILY Per instructio ns DAILY (route: oral) Med Classific ation: Central Nervous System Agents tranexamic acid 650 mg tablet 2022-10 00:00: 00 07-21 23:59 :00 No [id number] Per instruc tions DAILY Per instructio ns DAILY (route: oral) Med Classific ation: Hematolog ical Agents trazodone 50 mg tablet 2022-10 00:00: 00 07-21 23:59 :00 No [id number] Per instruc tions DAILY Per instructio ns DAILY (route: oral) Med Classific ation: Central Nervous System Agents solifenacin 10 mg tablet 2022-10 00:00: 00 07-21 23:59 :00 No [id number] Per instruc tions DAILY Per instructio ns DAILY (route: oral) Med Classific ation: Genitouri nary Therapy rizatriptan 10 mg tablet 2022-10 00:00: 00 09-07 00:00 :00 No [id number] Per instruc tions Per instructio ns (route: oral) Med Classific ation: Central Nervous System Agents citalopram 10 mg tablet 2022-10 00:00: 00 09-07 23:59 :00 No [id number] Per instruc tions DAILY Per instructio ns DAILY (route: oral) Med Classific ation: Central Nervous System Agents albuterol sulfate HFA 90 mcg/actuati on aerosol inhaler 2022-10 00:00: 00 07-21 23:59 :00 No [id number] 2 puff EVERY 6 HOURS 2 puff EVERY 6 HOURS (route: inhalation ) Med Classific ation: Respirato ry Therapy Agents citalopram 10 mg tablet 2022-10 00:00: 00 07-21 23:59 :00 No [id number] Per instruc tions DAILY Per instructio ns DAILY (route: oral) Med Classific ation: Central Nervous System Agents citalopram 20 mg tablet 2022-10 00:00: 00 07-21 23:59 :00 No [id number] Per instruc tions DAILY Per instructio ns DAILY (route: oral) Med Classific ation: Central Nervous System Agents lamotrigine 100 mg tablet 2022-10 00:00: 00 09-07 23:59 :00 No [id number] Per instruc tions DAILY Per instructio ns DAILY (route: oral) Med Classific ation: Central Nervous System Agents lamotrigine 150 mg tablet 2022-10 00:00: 00 07-21 23:59 :00 No [id number] Per instruc tions 2 TIMES DAILY Per instructio ns 2 TIMES DAILY (route: oral) Med Classific ation: Central Nervous System Agents Tylenol 325 mg tablet 2022-10 00:00: 00 07-21 23:59 :00 No [id number] 1 tablet EVERY 6 HOURS 1 tablet EVERY 6 HOURS (route: oral) Med Classific ation: Analgesic , Anti-infl ammatory or Antipyret ic aspirin 81 mg tablet,dalton yed release 12-30 00:00: 00 07-21 23:59 :00 No [id number] 1 tablet DAILY 1 tablet DAILY (route: oral) Med Classific ation: Hematolog ical Agents coenzyme Q10 10 mg capsule 12-30 00:00: 00 07-21 23:59 :00 No [id number] 1 capsule DAILY 1 capsule DAILY (route: oral) Med Classific ation: Alternati ve Therapy rizatriptan 10 mg tablet 3-24 00:00: 00 07-21 23:59 :00 No [id number] 1 tablet DAILY 1 tablet DAILY (route: oral) Med Classific ation: Central Nervous System Agents Abilify 10 mg tablet 02-14 00:00: 00 07-21 23:59 :00 No [id number] 1 tablet DAILY 1 tablet DAILY (route: oral) Med Classific ation: Central Nervous System Agents amlodipine 2.5 mg tablet 02-14 00:00: 00 07-21 23:59 :00 No [id number] 1 tablet DAILY 1 tablet DAILY (route: oral) Med Classific ation: Cardiovas cular Therapy Agents budesonide 0.5 mg/2 mL suspension for nebulizatio n 02-14 00:00: 00 07-21 23:59 :00 No [id number] 2 mL 2 TIMES DAILY 2 mL 2 TIMES DAILY (route: inhalation ) Med Classific ation: Respirato ry Therapy Agents cetirizine 10 mg tablet 02-14 00:00: 00 07-21 23:59 :00 No [id number] 1 tablet DAILY 1 tablet DAILY (route: oral) Med Classific ation: Respirato ry Therapy Agents Dulera 200 mcg-5 mcg/actuati on HFA aerosol inhaler 02-14 00:00: 07-21 23:59 :00 No [id number] 1 puff 2 TIMES DAILY 1 puff 2 TIMES DAILY (route: inhalation ) Med Classific ation: Respirato ry Therapy Agents ferrous gluconate 324 mg (38 mg iron) tablet 02-14 00:00: 00 07-21 23:59 :00 No [id number] 1 tablet DAILY 1 tablet DAILY (route: oral) Med Classific ation: Electroly te Balance-N utritiona l Products hydroxyzine HCl 50 mg tablet 02-14 00:00: 00 07-21 23:59 :00 No [id number] 1 tablet EVERY 8 HOURS 1 tablet EVERY 8 HOURS (route: oral) Med Classific ation: Central Nervous System Agents melatonin 3 mg tablet 02-14 00:00: 00 07-21 23:59 :00 No [id number] 1 tablet BEDTIME 1 tablet BEDTIME (route: oral) Med Classific ation: Central Nervous System Agents Seroquel 50 mg tablet 02-14 00:00: 00 07-21 23:59 :00 No [id number] Per instruc tions DIRECTED Per instructio ns DIRECTED (route: oral) Med Classific ation: Central Nervous System Agents oxybutynin chloride ER 10 mg tablet,exte nded release 24 hr 04-05 00:00: 00 07-21 23:59 :00 No [id number] 1 tablet DAILY 1 tablet DAILY (route: oral) Med Classific ation: Genitouri nary Therapy Immunizations Ordered Immunization Name Filled Immunization Name Date Status Comments Refusal Reason INFLUENZA, TIV (INACTIVATED) 2023-07-12 00:00:00 Vital Signs Vital Name Observation Time Observation Value Commen ts Temperature 2024-04-18 11:18:00.000 99.1 [degF] Temperature 2024-04-12 16:46:00.000 98.8 [degF] Temperature 2024-04-08 13:33:00.000 97.2 [degF] Temperature 2024-04-05 11:21:00.000 97.8 [degF] Temperature 2024-04-03 09:09:00.000 98.8 [degF] Temperature 2024-04-01 12:40:00.000 97.7 [degF] Temperature 2024-03-29 15:15:00.000 97.4 [degF] Temperature 2024-03-27 09:27:00.000 97.9 [degF] Temperature 2024-03-26 08:53:00.000 97.8 [degF] Temperature 2024-03-25 16:03:00.000 97.1 [degF] Temperature 2024-03-20 10:52:00.000 97.6 [degF] Temperature 2024-03-13 16:18:00.000 97.5 [degF] Temperature 2024-03-12 10:00:00.000 97.6 [degF] Temperature 2024-03-07 10:15:00.000 97.8 [degF] Temperature 2024-03-06 15:34:00.000 97.2 [degF] Temperature 2024-03-05 10:00:00.000 97.4 [degF] Temperature 2024-02-29 10:00:00.000 97.4 [degF] Pulse 2024-04-18 11:18:00.000 66 /min Pulse 2024-04-12 16:46:00.000 74 /min Pulse 2024-04-08 13:33:00.000 84 /min Pulse 2024-04-05 11:21:00.000 74 /min Pulse 2024-04-03 09:09:00.000 88 /min Pulse 2024-04-01 12:40:00.000 74 /min Pulse 2024-03-29 15:15:00.000 78 /min Pulse 2024-03-27 09:27:00.000 68 /min Pulse 2024-03-26 08:53:00.000 92 /min Pulse 2024-03-25 16:03:00.000 68 /min Pulse 2024-03-20 10:52:00.000 74 /min Pulse 2024-03-13 16:18:00.000 82 /min Pulse 2024-03-12 10:00:00.000 80 /min Pulse 2024-03-07 10:15:00.000 78 /min Pulse 2024-03-06 15:34:00.000 78 /min Pulse 2024-03-05 10:00:00.000 74 /min Pulse 2024-02-29 10:00:00.000 80 /min O2 Saturation (%) 2024-04-18 11:18:00.000 99 % O2 Saturation (%) 2024-04-12 16:46:00.000 99 % O2 Saturation (%) 2024-04-08 13:33:00.000 98 % O2 Saturation (%) 2024-04-05 11:21:00.000 97 % O2 Saturation (%) 2024-04-03 09:09:00.000 96 % O2 Saturation (%) 2024-03-27 09:27:00.000 99 % O2 Saturation (%) 2024-03-26 08:53:00.000 97 % O2 Saturation (%) 2024-03-20 10:52:00.000 96 % O2 Saturation (%) 2024-03-13 16:18:00.000 100 % O2 Saturation (%) 2024-03-06 15:34:00.000 98 % Respirations 2024-04-18 11:18:00.000 18 /min Respirations 2024-04-12 16:46:00.000 18 /min Respirations 2024-04-08 13:33:00.000 18 /min Respirations 2024-04-05 11:21:00.000 16 /min Respirations 2024-04-03 09:09:00.000 18 /min Respirations 2024-04-01 12:40:00.000 18 /min Respirations 2024-03-29 15:15:00.000 16 /min Respirations 2024-03-25 16:03:00.000 18 /min Respirations 2024-03-20 10:52:00.000 18 /min Respirations 2024-03-13 16:18:00.000 18 /min Respirations 2024-03-12 10:00:00.000 18 /min Respirations 2024-03-07 10:15:00.000 17 /min Respirations 2024-03-06 15:34:00.000 18 /min Respirations 2024-03-05 10:00:00.000 18 /min Respirations 2024-02-29 10:00:00.000 18 /min Systolic Blood Pressure 2024-04-18 11:18:00.000 118 mm [Hg] Systolic Blood Pressure 2024-04-12 16:46:00.000 120 mm [Hg] Systolic Blood Pressure 2024-04-08 13:33:00.000 118 mm [Hg] Systolic Blood Pressure 2024-04-05 11:21:00.000 122 mm [Hg] Systolic Blood Pressure 2024-04-03 09:09:00.000 110 mm [Hg] Systolic Blood Pressure 2024-04-01 12:40:00.000 110 mm [Hg] Systolic Blood Pressure 2024-03-29 15:15:00.000 112 mm [Hg] Systolic Blood Pressure 2024-03-26 09:19:00.000 108 mm [Hg] Systolic Blood Pressure 2024-03-25 16:03:00.000 116 mm [Hg] Systolic Blood Pressure 2024-03-20 10:52:00.000 116 mm [Hg] Systolic Blood Pressure 2024-03-13 16:18:00.000 118 mm [Hg] Systolic Blood Pressure 2024-03-12 10:00:00.000 120 mm [Hg] Systolic Blood Pressure 2024-03-07 10:15:00.000 126 mm [Hg] Systolic Blood Pressure 2024-03-06 15:34:00.000 116 mm [Hg] Systolic Blood Pressure 2024-03-05 10:00:00.000 114 mm [Hg] Systolic Blood Pressure 2024-02-29 10:00:00.000 116 mm [Hg] Diastolic Blood Pressure 2024-04-18 11:18:00.000 80 mm [Hg] Diastolic Blood Pressure 2024-04-12 16:46:00.000 72 mm [Hg] Diastolic Blood Pressure 2024-04-08 13:33:00.000 62 mm [Hg] Diastolic Blood Pressure 2024-04-05 11:21:00.000 64 mm [Hg] Diastolic Blood Pressure 2024-04-03 09:09:00.000 60 mm [Hg] Diastolic Blood Pressure 2024-04-01 12:40:00.000 68 mm [Hg] Diastolic Blood Pressure 2024-03-29 15:15:00.000 74 mm [Hg] Diastolic Blood Pressure 2024-03-26 09:19:00.000 60 mm [Hg] Diastolic Blood Pressure 2024-03-25 16:03:00.000 76 mm [Hg] Diastolic Blood Pressure 2024-03-20 10:52:00.000 64 mm [Hg] Diastolic Blood Pressure 2024-03-13 16:18:00.000 66 mm [Hg] Diastolic Blood Pressure 2024-03-12 10:00:00.000 62 mm [Hg] Diastolic Blood Pressure 2024-03-07 10:15:00.000 66 mm [Hg] Diastolic Blood Pressure 2024-03-06 15:34:00.000 62 mm [Hg] Diastolic Blood Pressure 2024-03-05 10:00:00.000 70 mm [Hg] Diastolic Blood Pressure 2024-02-29 10:00:00.000 68 mm [Hg] Plan of Treatment Planned Activity Planned Date Details Comments Future Scheduled Test SKILLED NU RSE TO EVALUATE PATIENT, IDENTIFY PRIMARY AND CO-MORBID CONDITIONS CODED PER CODING GUIDELINES, AND DEVELOP PATIENT SPECIFIC PLAN OF CARE THAT INCLUDES PATIENT GOAL FOR HOME HEALTH. [code = SKILLED NURSE TO EVALUATE PATIENT, IDENTIFY PRIMARY AND CO-MORBID CONDITIONS CODED PER CODING GUIDELINES, AND DEVELOP PATIENT SPECIFIC PLAN OF CARE THAT INCLUDES PATIENT GOAL FOR HOME HEALTH.] Future Scheduled Test SKILLED NU RSE TO PROVIDE TEACHING/REINFORCEMENT RELATED TO URINARY INCONTINENCE. [code = SKILLED NURSE TO PROVIDE TEACHING/REINFORCEMENT RELATED TO URINARY INCONTINENCE.] Future Scheduled Test NEED FOR C ONTINUATION OF PHYSICAL THERAPY SERVICES [code = NEED FOR CONTINUATION OF PHYSICAL THERAPY SERVICES] Future Scheduled Test SKILLED NU RSE TO ASSESS ANXIETY AND PROVIDE ASSISTANCE TO PATIENT FOR UNDERSTANDING AND MANAGEMENT OF FEELINGS. [code = SKILLED NURSE TO ASSESS ANXIETY AND PROVIDE ASSISTANCE TO PATIENT FOR UNDERSTANDING AND MANAGEMENT OF FEELINGS.] Future Scheduled Test SKILLED NU RSE FOR O/A OF RESPIRATORY SYSTEM TO IDENTIFY CHANGES ASSOCIATED WITH EXACERBATION AND TO PROVIDE SKILLED TEACHING ON MANAGEMENT OF ASTHMA PROCESS. [code = SKILLED NURSE FOR O/A OF RESPIRATORY SYSTEM TO IDENTIFY CHANGES ASSOCIATED WITH EXACERBATION AND TO PROVIDE SKILLED TEACHING ON MANAGEMENT OF ASTHMA PROCESS.] Future Scheduled Test SKILLED NU RSE FOR O/A AND SKILLED TEACHING RELATED TO SIGNS AND SYMPTOMS OF INFECTION AND INFECTION CONTROL MEASURES. [code = SKILLED NURSE FOR O/A AND SKILLED TEACHING RELATED TO SIGNS AND SYMPTOMS OF INFECTION AND INFECTION CONTROL MEASURES.] Future Scheduled Test SKILLED NU RSE FOR O/A TO IDENTIFY CHANGES ASSOCIATED WITH CEREBRAL PALSY AND PROVIDE INSTRUCTION RELATED TO SAFETY MEASURES TO PREVENT INJURY SECONDARY TO IMPAIRED NEUROLOGICAL STATUS. SKILLED NURSE TO REPORT SIGNIFICANT CHANGES OF NEUROLOGIC STATUS TO PHYSICIAN FOR EARLY INTERVENTION. [code = SKILLED NURSE FOR O/A TO IDENTIFY CHANGES ASSOCIATED WITH CEREBRAL PALSY AND PROVIDE INSTRUCTION RELATED TO SAFETY MEASURES TO PREVENT INJURY SECONDARY TO IMPAIRED NEUROLOGICAL STATUS. SKILLED NURSE TO REPORT SIGNIFICANT CHANGES OF NEUROLOGIC STATUS TO PHYSICIAN FOR EARLY INTERVENTION.] Future Scheduled Test SKILLED NU RSE TO INSTRUCT PATIENT/CAREGIVER ON SIGNS AND SYMPTOMS, RISK FACTORS, COMPLICATIONS, AND MANAGEMENT OF ATRIAL FIBRILLATION. [code = SKILLED NURSE TO INSTRUCT PATIENT/CAREGIVER ON SIGNS AND SYMPTOMS, RISK FACTORS, COMPLICATIONS, AND MANAGEMENT OF ATRIAL FIBRILLATION.] Future Scheduled Test SKILLED NU RSE TO INSTRUCT ON SAFETY MEASURES TO PREVENT INJURY SECONDARY TO EPILEPSY DISORDER/IMPAIRED NEUROLOGICAL STATUS. [code = SKILLED NURSE TO INSTRUCT ON SAFETY MEASURES TO PREVENT INJURY SECONDARY TO EPILEPSY DISORDER/IMPAIRED NEUROLOGICAL STATUS.] Future Scheduled Test SKILLED NU RSE TO PROVIDE TEACHING ON SIGNS AND SYMPTOMS AND MANAGEMENT OF HYPERTENSION. [code = SKILLED NURSE TO PROVIDE TEACHING ON SIGNS AND SYMPTOMS AND MANAGEMENT OF HYPERTENSION.] Future Scheduled Test SKILLED NU RSE FOR O/A AND SKILLED TEACHING RELATED TO ALTERED SKIN INTEGRITY L HEEL [code = SKILLED NURSE FOR O/A AND SKILLED TEACHING RELATED TO ALTERED SKIN INTEGRITY L HEEL ] Future Scheduled Test SKILLED NU RSE FOR O/A AND SKILLED TEACHING RELATED TO SIGNS AND SYMPTOMS AND MANAGEMENT OF SPINAL STENOSIS, CERVICAL DISC DISOREDRWITH MYELOPATHY. [code = SKILLED NURSE FOR O/A AND SKILLED TEACHING RELATED TO SIGNS AND SYMPTOMS AND MANAGEMENT OF SPINAL STENOSIS, CERVICAL DISC DISOREDRWITH MYELOPATHY. ] Future Scheduled Test PATIENT OLIVERA S A RISK OF HOSPITALIZATION AND ED USE. SKILLED NURSE TO ESTABLISH SUPPORT MEASURES TO MINIMIZE RISK OF HOSPITALIZATION AND ED USE, AND INSTRUCT PATIENT/CAREGIVER ON METHODS TO REDUCE AVOIDABLE HOSPITALIZATION AND ED USE. [code = PATIENT HAS A RISK OF HOSPITALIZATION AND ED USE. SKILLED NURSE TO ESTABLISH SUPPORT MEASURES TO MINIMIZE RISK OF HOSPITALIZATION AND ED USE, AND INSTRUCT PATIENT/CAREGIVER ON METHODS TO REDUCE AVOIDABLE HOSPITALIZATION AND ED USE.] Future Scheduled Test SKILLED NU RSE TO PROVIDE INSTRUCTION TO PATIENT/CAREGIVER RELATED TO DISCHARGE PLANNING. [code = SKILLED NURSE TO PROVIDE INSTRUCTION TO PATIENT/CAREGIVER RELATED TO DISCHARGE PLANNING.] Future Scheduled Test SKILLED NU RSE TO PERFORM HOME SAFETY AND FALL ASSESSMENT AND PROVIDE INSTRUCTION TO IMPLEMENT HOME SAFETY AND FALL PREVENTION STRATEGIES. [code = SKILLED NURSE TO PERFORM HOME SAFETY AND FALL ASSESSMENT AND PROVIDE INSTRUCTION TO IMPLEMENT HOME SAFETY AND FALL PREVENTION STRATEGIES.] Future Scheduled Test SKILLED NU RSE FOR OBSERVATION AND ASSESSMENT OF PATIENTS PAIN LEVEL AND EFFECTIVENESS OF PAIN MANAGEMENT REGIMEN. SKILLED NURSE TO INSTRUCT PATIENT/CAREGIVER REGARDING PHARMACOLOGIC AND NON-PHARMACOLOGIC PAIN CONTROL MEASURES. SKILLED NURSE TO REPORT TO PHYSICIAN IF PAIN IS UNCONTROLLED WITH CURRENT PAIN MANAGEMENT REGIMEN. [code = SKILLED NURSE FOR OBSERVATION AND ASSESSMENT OF PATIENTS PAIN LEVEL AND EFFECTIVENESS OF PAIN MANAGEMENT REGIMEN. SKILLED NURSE TO INSTRUCT PATIENT/CAREGIVER REGARDING PHARMACOLOGIC AND NON-PHARMACOLOGIC PAIN CONTROL MEASURES. SKILLED NURSE TO REPORT TO PHYSICIAN IF PAIN IS UNCONTROLLED WITH CURRENT PAIN MANAGEMENT REGIMEN.] Future Scheduled Test SKILLED NU RSE TO ASSESS PATIENT'S SKIN INTEGRITY AND INSTRUCT PATIENT/CAREGIVER ON MEASURES TO PREVENT PRESSURE ULCERS. [code = SKILLED NURSE TO ASSESS PATIENT'S SKIN INTEGRITY AND INSTRUCT PATIENT/CAREGIVER ON MEASURES TO PREVENT PRESSURE ULCERS.] Future Scheduled Test SKILLED NU RSE TO PROVIDE ASSESSMENT AND TEACHING/REINFORCEMENT OF MANAGEMENT OF DEPRESSION INCLUDING DISEASE PROCESS, MEDICATION MANAGEMENT, COPING SKILLS AND IDENTIFY CHANGES ASSOCIATED WITH DEPRESSIVE DISORDERS FOR EARLY INTERVENTION. [code = SKILLED NURSE TO PROVIDE ASSESSMENT AND TEACHING/REINFORCEMENT OF MANAGEMENT OF DEPRESSION INCLUDING DISEASE PROCESS, MEDICATION MANAGEMENT, COPING SKILLS AND IDENTIFY CHANGES ASSOCIATED WITH DEPRESSIVE DISORDERS FOR EARLY INTERVENTION. ] Future Scheduled Test PHYSICAL T HERAPIST TO EVALUATE PATIENT SECONDARY TO FUNCTIONAL DEFICITS/SAFETY CONCERNS. PHYSICAL THERAPY TO INSTRUCT PATIENT/CAREGIVER ON SAFE TRANSFER TECHNIQUES USING PROPER BODY MECHANICS AND EQUIPMENT. PHYSICAL THERAPY TO INSTRUCT PATIENT/CAREGIVER ON GAIT TRAINING TECHNIQUES USING APPROPRIATE ASSISTIVE DEVICE, PROPER BODY MECHANICS TO IMPROVE MOBILITY, AND PREVENT INJURY OF PATIENT AND/OR CAREGIVER. PHYSICAL THERAPY TO ASSESS AND RECOMMEND HOME SAFETY ADAPTATIONS AND EDUCATE PATIENT /CAREGIVER ON FALL PREVENTION STRATEGIES. SUMMARY OF THERAPY EVAL/ASSESSMENT FINDINGS AND REASON(S) SKILLS OF A THERAPIST ARE INDICATED: [id number] PHYSICAL THERAPY REASSESSMENT COMPLETED. PATIENT IS A 53 YO FEMALE SP HOSPITALIZATION SECONDARY TO CONCERN OF POSSIBLE CVA WHICH WAS NEGATIVE. PATIENT LIVES IN A FPC WITH 24 SUPERVISION. PMHX CEREBRAL PALSY, SUBDURAL HEMORRHAGE, HYDROCEPHALUS, CONVULSIONS, SEIZURES, ASTHMA FALLS,OBESITY, SLEEP APNEA WITH CPAP, CERVICAL SPINAL STENOSIS WITH SURGERY(C3-C6), DEPRESSION ANXIETY, DEVELOPMENTAL DISORDER, CHRONIC CONSTIPATION. PLOF PATIENT AMBLATED W 4WW WITHIN FPC, SUPERVISION WITH OUTDOOR AMBULATION. CLOF. VITALS ARE STABLE, NO REPORTED PAIN. BED MOBILITY INDEPENDENT, TRANSFERS WITH 4WW WITH SUPERVISION SIT TO STAND. , CUES ON LOCKING BRAKES PRE POST TRANSFER. GAIT WITH 4WW CTG A- SUPERVISION WITH AMBULATION ON EVEN SURFACES X50 FT X 3 UNEQUAL STEP LENGTH AND PLACEMENT, DYNAMIC STAND BALANCE TUG SCORE IS 17 SECONDS INDICATING A FALL RISK. RECOMMENDATIONS TO FPC STAFF TO USE GAIT BELT FOR TRANSFERS AND GAIT. PATIENT IS CURRENTLY HOMEBOUND AND REQUIRES PHYSICAL ASSIST AND DEVICE TO SAFELY LEAVE HOME FOR MEDICAL APPOINTMENTS. PATIENT IS AGREEABLE TO PHYSICAL THERAPY INTERVENTION 1W1, 2W2 TO REACH PREVIOUS INDEPENDENCE. [code = PHYSICAL THERAPIST TO EVALUATE PATIENT SECONDARY TO FUNCTIONAL DEFICITS/SAFETY CONCERNS. PHYSICAL THERAPY TO INSTRUCT PATIENT/CAREGIVER ON SAFE TRANSFER TECHNIQUES USING PROPER BODY MECHANICS AND EQUIPMENT. PHYSICAL THERAPY TO INSTRUCT PATIENT/CAREGIVER ON GAIT TRAINING TECHNIQUES USING APPROPRIATE ASSISTIVE DEVICE, PROPER BODY MECHANICS TO IMPROVE MOBILITY, AND PREVENT INJURY OF PATIENT AND/OR CAREGIVER. PHYSICAL THERAPY TO ASSESS AND RECOMMEND HOME SAFETY ADAPTATIONS AND EDUCATE PATIENT /CAREGIVER ON FALL PREVENTION STRATEGIES. SUMMARY OF THERAPY EVAL/ASSESSMENT FINDINGS AND REASON(S) SKILLS OF A THERAPIST ARE INDICATED: [id number] PHYSICAL THERAPY REASSESSMENT COMPLETED. PATIENT IS A 53 YO FEMALE SP HOSPITALIZATION SECONDARY TO CONCERN OF POSSIBLE CVA WHICH WAS NEGATIVE. PATIENT LIVES IN A FPC WITH 24 SUPERVISION. PMHX CEREBRAL PALSY, SUBDURAL HEMORRHAGE, HYDROCEPHALUS, CONVULSIONS, SEIZURES, ASTHMA FALLS,OBESITY, SLEEP APNEA WITH CPAP, CERVICAL SPINAL STENOSIS WITH SURGERY(C3-C6), DEPRESSION ANXIETY, DEVELOPMENTAL DISORDER, CHRONIC CONSTIPATION. PLOF PATIENT AMBLATED W 4WW WITHIN FPC, SUPERVISION WITH OUTDOOR AMBULATION. CLOF. VITALS ARE STABLE, NO REPORTED PAIN. BED MOBILITY INDEPENDENT, TRANSFERS WITH 4WW WITH SUPERVISION SIT TO STAND. , CUES ON LOCKING BRAKES PRE POST TRANSFER. GAIT WITH 4WW CTG A- SUPERVISION WITH AMBULATION ON EVEN SURFACES X50 FT X 3 UNEQUAL STEP LENGTH AND PLACEMENT, DYNAMIC STAND BALANCE TUG SCORE IS 17 SECONDS INDICATING A FALL RISK. RECOMMENDATIONS TO FPC STAFF TO USE GAIT BELT FOR TRANSFERS AND GAIT. PATIENT IS CURRENTLY HOMEBOUND AND REQUIRES PHYSICAL ASSIST AND DEVICE TO SAFELY LEAVE HOME FOR MEDICAL APPOINTMENTS. PATIENT IS AGREEABLE TO PHYSICAL THERAPY INTERVENTION 1W1, 2W2 TO REACH PREVIOUS INDEPENDENCE.] Goal 2024-04-18 Patient Goal - G ET BETTER BACK TO MY ROUTINE. NOT TO BE SO TIRED Goal 2024-02-28 Patient Goal - G ET BETTER BACK TO MY ROUTINE. NOT TO BE SO TIRED Goal 2024-02-15 Patient Goal - G ET BETTER BACK TO MY ROUTINE. NOT TO BE SO TIRED Goal Provider Goal - A PLAN OF CARE WILL BE ESTABLISHED THAT MEETS PATIENT'S PRISON NEEDS AND INCLUDES PATIENT GOAL FOR HOME HEALTH. Goal Provider Goal - PATIENT / CAREGIVER WILL VERBALIZE UNDERSTANDING OF EFFECTS OF URINARY INCONTINENCE BY THE END OF THE CERTIFICATION PERIOD. Goal Provider Goal - PHYSICAL THERAPY SERVICES TO CONTINUE AND PLAN OF TREATMENT CARE WILL BE RE-ESTABLISHED/UPDATED IN THE NEW CERTIFICATION PERIOD. Goal Provider Goal - SYMPTOMS OF ANXIETY ARE IDENTIFIED AND INTERVENTIONS INITIATED TO ENABLE PATIENT TO UNDERSTAND AND MANAGE FEELINGS THROUGHOUT EPISODE. Goal Provider Goal - PATIENT/CAREGIVER WILL VERBALIZE/DEMONSTRATE MANAGEMENT OF RESPIRATORY DISEASE PROCESS. CHANGES IN RESPIRATORY STATUS WILL BE IDENTIFIED AND REPORTED TO PHYSICIAN FOR PROMPT INTERVENTION THROUGHOUT THE CERTIFICATION PERIOD. Goal Provider Goal - PATIENT/CAREGIVER WILL VERBALIZE/DEMONSTRATE UNDERSTANDING OF S/S OF INFECTION AND INFECTION CONTROL MEASURES. SIGNS AND SYMPTOMS OF INFECTION WILL BE IDENTIFIED AND PHYSICIAN NOTIFIED FOR PROMPT INTERVENTION THROUGHOUT THE CERTIFICATION PERIOD. Goal Provider Goal - CHANGES IN NEUROLOGIC STATUS WILL BE IDENTIFIED AND REPORTED TO THE PHYSICIAN FOR PROMPT INTERVENTION OF ASSOCIATED RISK. PATIENT/CAREGIVER WILL VERBALIZE/DEMONSTRATE APPROPRIATE SAFETY MEASURES TO PREVENT INJURY BY THE END OF THE CERTIFICATION PERIOD. Goal Provider Goal - PATIENT/CAREGIVER WILL VERBALIZE UNDERSTANDING OF SIGNS AND SYMPTOMS, COMPLICATIONS, AND MANAGEMENT OF ATRIAL FIBRILLATION THROUGHOUT THE CERTIFICATION PERIOD. Goal Provider Goal - PATIENT/CAREGIVER WILL VERBALIZE/DEMONSTRATE EPILEPSY PRECAUTIONS AND CARE OF PATIENT TO PROMOTE SAFETY AND PREVENT INJURY BY THE END OF THE CERTIFICATION PERIOD. Goal Provider Goal - PATIENT/CAREGIVER WILL VERBALIZE SIGNS AND SYMPTOMS OF HYPERTENSION AND WILL BE ABLE TO DEMONSTRATE ABILITY TO MANAGE EXACERBATION BY END OF THE EPISODE. Goal Provider Goal - PATIENT/CAREGIVER WILL VERBALIZE/DEMONSTRATE UNDERSTANDING OF TEACHING RELATED TO ALTERED SKIN INTEGRITY L HEEL HEALED BY OF CERTIFICATION PERIOD. Goal Provider Goal - PATIENT/CAREGIVER WILL VERBALIZE UNDERSTANDING OF MUSCULOSKELETAL DISEASE INCLUDING SIGNS AND SYMPTOMS, MANAGEMENT, AND PRESCRIBED TREATMENT REGIMEN BY END OF EPISODE. Goal Provider Goal - PATIENT WILL HAVE SUPPORT MEASURES ESTABLISHED TO PREVENT HOSPITALIZATION AND ED USE AND PATIENT/CAREGIVER WILL VERBALIZE/DEMONSTRATE METHODS TO REDUCE AVOIDABLE HOSPITALIZATION AND ED USE BY END OF EPISODE. Goal Provider Goal - PATIENT/CAREGIVER WILL VERBALIZE UNDERSTANDING OF DISCHARGE PLANNING INSTRUCTIONS BY DATE OF DISCHARGE. Goal Provider Goal - PATIENT/CAREGIVER WILL VERBALIZE/DEMONSTRATE EFFECTIVE HOME SAFETY AND FALL PREVENTION STRATEGIES THROUGHOUT CERTIFICATION PERIOD. Goal Provider Goal - PATIENT/CAREGIVER WILL DEMONSTRATE UNDERSTANDING OF PHARMACOLOGIC AND NONPHARMACOLOGIC PAIN CONTROL MEASURES AND PATIENT WILL HAVE IMPROVEMENT IN PAIN INTERFERING WITH ACTIVITY EVIDENCED BY PAIN CONTROLLED AT LEVEL OF 7 OR LESS BY END OF CERTIFICATION PERIOD. Goal Provider Goal - PATIENT/CAREGIVER WILL VERBALIZE UNDERSTANDING OF PRESSURE ULCER PREVENTION BY END OF THE EPISODE. Goal Provider Goal - PATIENT/CAREGIVER WILL VERBALIZE/DEMONSTRATE UNDERSTANDING OF THE MANAGEMENT OF DEPRESSION THROUGHOUT THE CERTIFICATION PERIOD AND SYMPTOMS ARE IDENTIFIED AND MANAGED TO MAINTAIN PATIENT SAFETY IN THE HOME. Goal Provider Goal - PHYSICAL THERAPY EVALUATION TO BE COMPLETED WITH RECOMMENDATIONS AND/OR WRITTEN TREATMENT PLAN OF CARE ESTABLISHED FOR THE PHYSICIANS SIGNATURE PATIENT/CAREGIVER WILL DEMONSTRATE SAFE TRANSFERS USING APPROPRIATE ASSISTIVE DEVICE BODY MECHANICS AND EQUIPMENT BY [id number] PATIENT/CAREGIVER WILL DEMONSTRATE IMPROVED GAIT TECHNIQUES TO MINIMIZE RISK OF INJURY, BY [id number] PATIENT/CAREGIVER WILL DEMONSTRATE/VERBALIZE UNDERSTANDING OF RECOMMENDATIONS TO INCREASE SAFETY IN THE HOME AND FALL PREVENTION DURING TRANSFERS AND AMBULATION BY [id number] Reason for Visit MODERATE ASSIST WITH TRANSFER/AMBULATION/ADLS Encounters Start Date/Time End Date/Time Encounter Type Admission Type Attending [facility] Care Department Encounter ID Discharge Date Discharge Status Discharge Condition Discharge Reason Percent Goals Met 2023-12-31 00:00:00 2024-04-18 00:00:00 [facility] [id number] 2024-04-18 00:00:00 DISCHARGE TO HOME OR SELF CARE MODERATE ASSIST WITH TRANSFER/A MBULATION/ ADLS NO LONGER HOMEBOUND ( ONLY) 83.33
--- NOTE | 2024-09-19 16:52 | PC.NURSE ---
MRI screening form completed over the phone with Pts mother. Form plced in Pts chart.
--- NOTE | 2024-09-19 16:55 | PHA.MEDREC ---
Addendum entered by Shanon Weems RPh 09/19/24 17:23: reviewed by [facility]. Original Note: Pharmacy Consult ? Medication Reconciliation Pharmacy has completed the medication reconciliation. Completed med rec with list from [facility] and [facility].
--- NOTE | 2024-09-19 17:28 | P.HPHOSP_ITS ---
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 and noted patient to have garbled speech and droopy eyes, otherwise noted no other issues, at present patient denies headache, no weakness, no numbness, inconsistent history with baseline chronic encephalopathy, workup in ED showed CT head with no acute intracranial pathology, ventriculostomy drains in place, no hydrocephalus, head and neck CTA showed no occlusion, chest x-ray unremarkable, speech has cleared, UA showed 3+ bacteria positive nitrate and 6-10 WBC, urine toxicology positive for marijuana, WBC 12.5, hematocrit 31.9 and hemoglobin 10.4, with baseline hematocrit, normal electrolytes, LDL 36, total cholesterol 88, patient denies use of marijuana. Patient will be admitted to [facility] due to garbled speech, likely UTI and expert consultation, patient is wheelchair-bound for last 6 months. [facility] Medical History Chronic constipation Overactive bladder Mild persistent asthma Psychogenic nonepileptic seizure Conversion disorder Depression with anxiety Unspecified psychosis Obesity Social History Alcohol intake: never Patient Tobacco Use Status: Never used Tobacco Smoked in Last 30 Days: No Use of substances other than those prescribed or required for medical reasons: No Advance Directives: No Advance Directives Information Provided: Yes Do you have a plan to hurt others: No Plan Nutrition Risks: No Nutritional Risk Patient : No service: No Current occupational status: disabled Meds Allergies Allergy/AdvReac Type Severity Reaction Status Date / Time levetiracetam [From [facility]] Allergy Unknown UNKNOWN Verified 09/19/24 14:54 Active Medications: Current Medications Acetaminophen (Acetaminophen 325 Mg Tablet) 650 mg PO Q6H PRN PRN Reason: Pain, Mild (Pain Scale 1-3), fever or headache Albuterol Sulfate (Albuterol Sulfate (0.083%) 2.5 Mg/3 Ml Vial.Neb) 2.5 mg INHALE Q6H PRN PRN Reason: Shortness Of Breath Or Wheezing Aripiprazole (Aripiprazole 10 Mg Tablet) 10 mg PO DAILY [facility] Aspirin (Aspirin Enteric Coated 81 Mg Tablet.Dr) 81 mg PO DAILY [facility] Atorvastatin Calcium (Atorvastatin Calcium 40 Mg Tablet) 40 mg PO BEDTIME TRI Baclofen (Baclofen 10 Mg Tablet) 10 mg PO TID TRI Bisacodyl (Bisacodyl 10 Mg Supp.Rect) 10 mg GA Q8H PRN PRN Reason: Constipation Budesonide (Budesonide 0.5 Mg/2 Ml Ampul.Neb) 0.5 mg INHALE BID [facility] Calcium Carbonate (Calcium Carbonate 750 Mg Tab.Chew) 750 mg PO Q4H PRN PRN Reason: Heartburn Docusate Sodium (Docusate Sodium 100 Mg Capsule) 500 mg PO QAM TRI Enoxaparin Sodium (Enoxaparin Sodium 40 Mg/0.4 Ml Syringe) 40 mg SUBCUT Q24H [facility] Gabapentin (Gabapentin 100 Mg Capsule) 100 mg PO BID [facility] Lamotrigine (Lamotrigine 100 Mg Tablet) 100 mg PO BID [facility] Lamotrigine (Lamotrigine 25 Mg Tablet) 150 mg PO BID [facility] Magnesium Hydroxide (Milk Of Magnesia 30 Ml Oral.Susp) 30 ml PO DAILY PRN PRN Reason: Constipation Melatonin (Melatonin 3 Mg Tablet) 6 mg PO BEDTIME PRN PRN Reason: Insomnia Melatonin (Melatonin 3 Mg Tablet) 3 mg PO BEDTIME [facility] Non-Formulary Medication (Amantadine Hcl) 100 mg PO BID [facility] Non-Formulary Medication (Citalopram) 30 mg PO DAILY [facility] Non-Formulary Medication (Dronabinol) 5 mg PO DAILY [facility] Non-Formulary Medication (Oxybutynin Chloride) 10 mg PO DAILY [facility] Non-Formulary Medication (Mometasone-Formoterol [Dulera]) 2 puff INHALE BID [facility] Ondansetron HCl (Ondansetron Hcl 4 Mg/2 Ml Vial) 4 mg IVPUSH Q8H PRN PRN Reason: Nausea and Vomiting Polyethylene Glycol (Polyethylene Glycol 3350 17 Gm Powd.Pack) 17 gm PO DAILY PRN PRN Reason: Laxatives Quetiapine Fumarate (Quetiapine Fumarate 25 Mg Tablet) 25 mg PO BEDTIME [facility] Sodium Biphosphate/Sodium Phosphate (Sodium Phosphate,Traverse-Dibasic 133 Ml Enema) 133 ml GA Q8H PRN PRN Reason: Laxatives Sodium Chloride (0.9 % Sodium Chloride Flush 3 Ml Syringe) 3 ml IVFLUSH QSHIFT [facility] Home Medications ?Medication ?Instructions ?Recorded ?Confirmed ?Last Taken ?Type melatonin 3 mg tablet 3 mg PO BEDTIME 01/21/23 09/19/24 Unknown History docusate sodium 100 mg tablet 100 mg PO DAILY 01/22/23 09/19/24 Unknown History ferrous gluconate 324 mg (37.5 mg 324 mg PO DAILY 01/22/23 09/19/24 Unknown History iron) tablet polyethylene glycol 3350 17 17 g PO DAILY Laxatives 01/22/23 09/19/24 Unknown History gram/dose oral powder (Miralax) citalopram 10 mg tablet 30 mg PO DAILY 02/21/23 09/19/24 Unknown History lamotrigine 150 mg tablet 150 mg PO BID 02/21/23 09/19/24 Unknown History lamotrigine 100 mg tablet 100 mg PO BID 02/22/23 09/19/24 Unknown History acetaminophen 650 mg 650 mg PO Q8H PRN Pain/Elevated 09/19/24 09/19/24 Unknown History tablet,extended release Temp albuterol sulfate 2.5 mg/3 mL 2.5 mg inhalation Q6H PRN 09/19/24 09/19/24 Unknown History (0.083 %) solution for nebulization Shortness Of Breath Or Wheezing amantadine HCl 50 mg/5 mL oral 100 mg PO BID 09/19/24 09/19/24 Unknown History solution aripiprazole 10 mg tablet 10 mg PO DAILY 09/19/24 09/19/24 Unknown History aspirin 81 mg tablet,delayed 81 mg PO DAILY 09/19/24 09/19/24 Unknown History release atorvastatin 40 mg tablet 40 mg PO BEDTIME 09/19/24 09/19/24 Unknown History baclofen 10 mg tablet 10 mg PO TID 09/19/24 09/19/24 Unknown History bisacodyl 10 mg rectal suppository 10 mg GA Q8H PRN Constipation 09/19/24 09/19/24 Unknown History budesonide 0.5 mg/2 mL suspension 0.5 mg inhalation BID 09/19/24 09/19/24 Unknown History for nebulization calcium polycarbophil 625 mg tablet 625 mg PO BID 09/19/24 09/19/24 Unknown History coenzyme Q10 100 mg tablet 100 mg PO DAILY 09/19/24 09/19/24 Unknown History diclofenac sodium 1 % topical gel 1 g topical QID 09/19/24 09/19/24 Unknown History dronabinol 5 mg capsule 5 mg PO DAILY 09/19/24 09/19/24 Unknown History gabapentin 100 mg capsule 100 mg PO BID 09/19/24 09/19/24 Unknown History lidocaine 4 % topical patch 1 patch topical Q8H PRN Pain 09/19/24 09/19/24 Unknown History magnesium hydroxide 400 mg/5 mL 30 ml PO Q8H PRN Laxatives 09/19/24 09/19/24 Unknown History oral suspension (Milk of [employer] (Abundant Closet)) mometasone-formoterol HFA 200 2 puff inhalation BID 09/19/24 09/19/24 Unknown History mcg-5 mcg/actuation aerosol inhaler ([employer]) ondansetron 4 mg disintegrating 4 mg PO Q8H PRN Nausea And Vomiting 09/19/24 09/19/24 Unknown History tablet oxybutynin chloride 5 mg tablet 10 mg PO DAILY 09/19/24 09/19/24 Unknown History quetiapine 25 mg tablet 25 mg PO BEDTIME 09/19/24 09/19/24 Unknown History sodium phosphates 19 gram-7 133 ml GA Q8H PRN Laxatives 09/19/24 09/19/24 Unknown History gram/118 mL enema (Fleet Enema) Physical Exam 2 Vital Signs and Narrative: Vital Signs: Last Vital Signs Temp 98.0 F 09/19/24 15:14 Pulse 93 09/19/24 15:14 Resp 20 09/19/24 15:14 BP 120/78 09/19/24 15:14 Pulse Ox 95 09/19/24 15:14 O2 Del Method Room Air 09/19/24 15:14 BMI result Body Mass Index 29.2 Const: Other: General resting comfortably in no acute distress. Neck no JVD. CVS regular rate rhythm, Respiratory lungs clear to auscultation, no respiratory distress, no wheeze, no rhonchi. Gastrointestinal abdomen soft, non tender, bowel sounds audible Extremities no edema. Neuro speech clear, bilateral mild ptosis, face symmetrical, bilateral normal hand golf club head former Skin no rash Extremities right foot externally rotated Results Labs 09/20/24 05:39 09/19/24 15:25 Labs: Laboratory Results - last 24 hr 09/19/24 09/19/24 09/19/24 14:13 14:46 15:25 MCV 91.1 MCH 29.7 MCHC 32.6 RDW 15.0 Plt Count 357 D MPV 8.9 L Immature Gran % (Auto) 0.7 H Neut % (Auto) 78.2 H Lymph % (Auto) 12.4 L Traverse % (Auto) 7.4 Eos % (Auto) 0.7 Baso % (Auto) 0.6 Lymph # (Auto) 1.6 Traverse # (Auto) 0.9 Eos # (Auto) 0.1 Baso # (Auto) 0.1 Abs Immat Gran (auto) 0.09 H Absolute Neuts (auto) 9.8 H Absolute Nucleated RBC 0.000 Nucleated RBC % (auto) 0.0 Hold Purple Top SEE NOTE PT 16.8 H Whole Blood PT 14.2 H INR 1.4 H Whole Blood INR 1.2 H APTT 32.1 Anion Gap 18 Estim Creat Clear Calc 79.6 Estimated GFR > 60 POC Glucose 100 Random Glucose 93 Calcium 9.7 Troponin I High Sens < 2.7 Triglycerides 66 Cholesterol 88 LDL Cholesterol, Calc 36 HDL Cholesterol 39 L Ethyl Alcohol < 10 Assessment and Plan (1) 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: Status: Acute Plan 52-year-old female with 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, unspecified psychosis, depression / anxiety, conversion disorder /psychogenic nonepileptic pseudoseizures, developmental delay,mild persistent asthma, and chronic constipation presented with garbled speech and left facial droop # acute toxic metabolic encephalopathy with garbled speech/bilateral mild ptosis unknown duration of symptoms, Differential diagnosis uti/TIA/marijuana use/sz was seen normal last night at bedtime, not a candidate for TNK Speech cleared, no pronator drift, unable to do detailed neuro exam due to baseline chronic encephalopathy Obtain MRI study, empirically treat UTI/continue seizure medications/seizure precautions pt. denies use of marijuana, mother not aware Continue aspirin/statin As per mother on chopped diet and thin liquids. Neuro consult # probable UTI with leukocytosis, no sepsis Treat with IV ceftriaxone, follow urine culture and CBC. # unspecified psychogenic nonepileptic seizure disorder continue home medications/seizure precautions # depression/anxiety / unspecified psychosis/conversion disorder - continue home meds # mild persistent asthma-no acute exacerbation - continue maintenance medications, albuterol p.r.n. # chronic constipation continue stool softeners DVT prophylaxis-Lovenox full code In my clinical judgment patient requires 2 night inpatient hospitalization for further evaluation and treatment of garbled speech/UTI on iv abx and expert consultation. Quality Stroke Does the patient have a stroke diagnosis?: No VTE Prior VTE?: No VTE Risk Level:: Medical - moderate - high VTE Device Contraindication: Treatment Not Indicated VTE Drug Contraindication: N/A - Med Ordered
--- NOTE | 2024-09-19 17:48 | PC.NURSE ---
Straight cath performed for urine spec. Pt tolerated well. Spec sent to lab for analysis.
[2024-09-19 17:51] LABS: Amphetamine Screen Urine Not Detected (Not Detect); Barbiturates, Urine Not Detected (Not Detect); Benzodiazepines Screen Urine Not Detected (Not Detect); Buprenorphine Scr Not Detected (Not Detect); Cannabinoid Screen Urine POSITIVE (Not Detect); Cocaine Screen Urine Not Detected (Not Detect); Fentanyl, urine Not Detected (Not Detect); Methadone Screen, Urine Not Detected (Not Detect); Opiate Screen Urine Not Detected (Not Detect); Oxycodone Screen Urine Not Detected (Not Detect); Phencyclidine Screen Urine Not Detected (Not Detect)
[2024-09-19 17:55] LABS: Appearance Urine Clear; Color Urine Yellow; Glucose Urine UA Negative (Negative); Leukocyte Esterase Urine Negative (Negative); Nitrite Urine Positive (Negative); PH 5.5 (5.0-9.0); Specific Gravity - Urine >= 1.030 (1.005-1.025); UMIC TRIGGER UACC YES; Urine Blood Negative (Negative); Urine Ketones Negative (Negative); Urine Protein Negative (Neg-Trace)
[2024-09-19 18:11] LABS: Bacteria Urine 3+ (None Seen); Hyaline Casts Urine 0-2 /LPF (0-2); RBC Urine 0-2 /HPF (0-2); UACC Culture Trigger YES
[2024-09-19 18:55] VITALS: BP 99/58; PULSE 94; RESP 16; TEMP 36.9; O2SAT 95
[2024-09-19 18:58] VITALS: PULSE 89; RESP 16; O2SAT 96
[2024-09-19] MEDS: Budesonide 0.5 MG/2 ML AMPUL.NEB INHALE (18:58)
[2024-09-19] MEDS: Enoxaparin Sodium 40 MG/0.4 ML SYRINGE SUBCUT (19:40)
[2024-09-19] MEDS: cefTRIAXone sodium 1 GM VIAL IVPUSH (19:40)
--- NOTE | 2024-09-19 20:50 | PC.NURSE ---
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 Tavia, patient's primary emergency contacted called for clarification. Tavia's phone does not accept phone calls at this time.
[2024-09-19 23:01] VITALS: BP 108/64; PULSE 92; RESP 22; TEMP 36.8; O2SAT 95
[2024-09-20] VITALS (13 sets, daily range): BP systolic 85–110; BP diastolic 52–71; PULSE 80–91; RESP 12–19; TEMP 36.1–37.4; O2SAT 93–100; BMI 29.0
[2024-09-20] MEDS: Melatonin 3 MG TABLET PO ×2 (00:01→22:26)
[2024-09-20] MEDS: amantadine HCL 100 MG CAPSULE PO ×2 (00:01→22:26)
[2024-09-20] MEDS: lamoTRIgine 25 MG TABLET 150 MG PO (00:01)
[2024-09-20] MEDS: Gabapentin 100 MG CAPSULE PO (00:01)
[2024-09-20] MEDS: QUEtiapine Fumarate 25 MG TABLET PO (00:02)
[2024-09-20] MEDS: Baclofen 10 MG TABLET PO (00:02)
[2024-09-20] MEDS: lamoTRIgine 100 MG TABLET PO ×2 (00:03→22:26)
[2024-09-20] MEDS: 0.9 % Sodium Chloride Flush 3 ML SYRINGE IVFLUSH ×3 (00:05→22:26)
[2024-09-20 05:53] LABS: Hematocrit 31.3 % (37.0-47.0); Hemoglobin 9.8 g/dl (12.0-16.0); Mean Corpuscular HGB Conc 31.3 g/dl (31.0-35.0); Mean Corpuscular Hemoglobin 29.2 pg (27.0-33.0); Mean Corpuscular Volume 93.2 fL (80.0-98.0); Mean Platelet Volume 8.7 fL (9.4-12.3); Platelet Count 306 X10*3/uL (160-400); Red Blood Count 3.36 X10*6/uL (4.20-5.50); White Blood Count 10.6 X10*3/uL (4.8-10.8)
--- NOTE | 2024-09-20 06:13 | MHC.EDTECH ---
Pt incontinent of urine and stool. Pt cleaned and repositioned.
[2024-09-20 07:40] LABS: Glucose, Whole Blood 75 mg/dL (60-115)
[2024-09-20] MEDS: Budesonide 0.5 MG/2 ML AMPUL.NEB INHALE ×2 (08:01→20:47)
--- NOTE | 2024-09-20 08:52 | PC.NURSE ---
Dr Ratliff at bedside with this RN. Patient seems very sleepy will respond to sternal rub, open eyes but barely communicate with nurse or MD. According to MD, this is a change in her since yesterday. Told to hold meds ( 9am) until more awake. Hold MRI. according to her mom shunts placed at [facility] 1 month ago.
--- NOTE | 2024-09-20 11:17 | MHC.CM.PN ---
CM spoke with Mother/HCP/Tavia @ [phone] and addressed IMM with her (original will be mailed certified letter to Tavia([address] [place] [address] in [place]) and a copy will be placed on the chart). Patient lives in a Shelter [facility] [address] [facility] in [place], but she came to [facility] from STR @ [facility]. Returning to [facility] to complete STR is the goal and CM has initiated and will follow for dc planning. PCP is Dr.Katherine Nuñez in [place].
--- NOTE | 2024-09-20 11:53 | PM.NEUROCN ---
History of Present Illness Data of Consult Service Date: 09/20/24 Primary Care Provider: Unknown Physician HPI Reason for consult: Encephalopathy 54-year-old female patient with history of hydrocephalus with bilateral [employer] shunts, unspecified psychosis, depression / anxiety, conversion disorder /psychogenic nonepileptic pseudoseizures ,developmental delay,mild persistent asthma, and chronic constipation was brought in to [place] ED via EMS due to garbled speech. She was unable to provide any history. There was no sign of any active convulsion or seizure. She was not febrile Review of Systems Review of Systems: Apparently she had some shunting procedure done few weeks ago at [facility]. [facility] Past Medical History Medical History Chronic constipation Overactive bladder Mild persistent asthma Psychogenic nonepileptic seizure Conversion disorder Depression with anxiety Unspecified psychosis Obesity Social History Social History Alcohol intake: never Patient Tobacco Use Status: Never used Tobacco Smoked in Last 30 Days: No Use of substances other than those prescribed or required for medical reasons: No Advance Directives: No Advance Directives Information Provided: Yes Do you have a plan to hurt others: No Plan Nutrition Risks: No Nutritional Risk Patient : No service: No Current occupational status: disabled Meds Allergies Allergy/AdvReac Type Severity Reaction Status Date / Time [facility]ir[facility] [[facility] Allergy Unknown UNKNOWN Verified 09/19/24 14:54 Active Medications: Current Medications Acetaminophen (Acetaminophen 325 Mg Tablet) 650 mg PO Q6H PRN PRN Reason: Pain, Mild (Pain Scale 1-3), fever or headache Albuterol Sulfate (Albuterol Sulfate (0.083%) 2.5 Mg/3 Ml Vial.Neb) 2.5 mg INHALE Q6H PRN PRN Reason: Shortness Of Breath Or Wheezing Amantadine HCl (Amantadine Hcl 100 Mg Capsule) 100 mg PO BID [facility] Last Admin: 09/20/24 00:01 Dose: 100 mg Aripiprazole (Aripiprazole 10 Mg Tablet) 10 mg PO DAILY [facility] Aspirin (Aspirin Enteric Coated 81 Mg Tablet.) 81 mg PO DAILY [facility] Atorvastatin Calcium (Atorvastatin Calcium 40 Mg Tablet) 40 mg PO BEDTIME [facility] Last Admin: 09/20/24 00:00 Dose: 40 mg Baclofen (Baclofen 10 Mg Tablet) 10 mg PO TID [facility] Last Admin: 09/20/24 00:02 Dose: 10 mg Bisacodyl (Bisacodyl 10 Mg Supp.Rect) 10 mg NM Q8H PRN PRN Reason: Constipation Budesonide (Budesonide 0.5 Mg/2 Ml Ampul.Neb) 0.5 mg INHALE BID [facility] Last Admin: 09/20/24 08:01 Dose: 0.5 mg Calcium Carbonate (Calcium Carbonate 750 Mg Tab.Chew) 750 mg PO Q4H PRN PRN Reason: Heartburn Ceftriaxone Sodium (Ceftriaxone Sodium 1 Gm Vial) 1 gm IVPUSH Q24H [facility] Last Admin: 09/19/24 19:40 Dose: 1 gm Docusate Sodium (Docusate Sodium 100 Mg Capsule) 100 mg PO DAILY [facility] Enoxaparin Sodium (Enoxaparin Sodium 40 Mg/0.4 Ml Syringe) 40 mg SUBCUT Q24H [facility] Last Admin: 09/19/24 19:40 Dose: 40 mg Escitalopram Oxalate (Escitalopram Oxalate 5 Mg Tablet) 5 mg PO DAILY [facility] Fluticasone/Vilanterol (Fluticasone/Vilanterol 200/25 Blst.W.Dev) 1 puff INHALE RDAILY [facility] Last Admin: 09/20/24 11:24 Dose: Not Given Gabapentin (Gabapentin 100 Mg Capsule) 100 mg PO BID [facility] Last Admin: 09/20/24 00:01 Dose: 100 mg Lamotrigine (Lamotrigine 100 Mg Tablet) 100 mg PO BID [facility] Last Admin: 09/20/24 00:03 Dose: 100 mg Lamotrigine (Lamotrigine 25 Mg Tablet) 150 mg PO BID [facility] Last Admin: 09/20/24 00:01 Dose: 150 mg Magnesium Hydroxide (Milk Of Magnesia 30 Ml Oral.Susp) 30 ml PO DAILY PRN PRN Reason: Constipation Melatonin (Melatonin 3 Mg Tablet) 6 mg PO BEDTIME PRN PRN Reason: Insomnia Melatonin (Melatonin 3 Mg Tablet) 3 mg PO BEDTIME [facility] Last Admin: 09/20/24 00:01 Dose: 3 mg Ondansetron HCl (Ondansetron Hcl 4 Mg/2 Ml Vial) 4 mg IVPUSH Q8H PRN PRN Reason: Nausea and Vomiting Oxybutynin Chloride (Oxybutynin Chloride 5 Mg Tablet) 10 mg PO DAILY [facility] Polyethylene Glycol (Polyethylene Glycol 3350 17 Gm Powd.Pack) 17 gm PO DAILY [facility] Quetiapine Fumarate (Quetiapine Fumarate 25 Mg Tablet) 25 mg PO BEDTIME [facility] Last Admin: 09/20/24 00:02 Dose: 25 mg Sodium Biphosphate/Sodium Phosphate (Sodium Phosphate,[place]-Dibasic 133 Ml Enema) 133 ml NM Q8H PRN PRN Reason: Laxatives Sodium Chloride (0.9 % Sodium Chloride Flush 3 Ml Syringe) 3 ml IVFLUSH QSHIFT [facility] Last Admin: 09/20/24 00:05 Dose: 3 ml Home Medications ?Medication ?Instructions ?Recorded ?Confirmed ?Last Taken ?Type melatonin 3 mg tablet 3 mg PO BEDTIME 01/21/23 09/19/24 Unknown History docusate sodium 100 mg tablet 100 mg PO DAILY 01/22/23 09/19/24 Unknown History ferrous gluconate 324 mg (37.5 mg 324 mg PO DAILY 01/22/23 09/19/24 Unknown History iron) tablet polyethylene glycol 3350 17 17 g PO DAILY Laxatives 01/22/23 09/19/24 Unknown History gram/dose oral powder (Miralax) citalopram 10 mg tablet 30 mg PO DAILY 02/21/23 09/19/24 Unknown History lamotrigine 150 mg tablet 150 mg PO BID 02/21/23 09/19/24 Unknown History lamotrigine 100 mg tablet 100 mg PO BID 02/22/23 09/19/24 Unknown History acetaminophen 650 mg 650 mg PO Q8H PRN Pain/Elevated 09/19/24 09/19/24 Unknown History tablet,extended release Temp albuterol sulfate 2.5 mg/3 mL 2.5 mg inhalation Q6H PRN 09/19/24 09/19/24 Unknown History (0.083 %) solution for nebulization Shortness Of Breath Or Wheezing amantadine HCl 50 mg/5 mL oral 100 mg PO BID 09/19/24 09/19/24 Unknown History solution aripiprazole 10 mg tablet 10 mg PO DAILY 09/19/24 09/19/24 Unknown History aspirin 81 mg tablet,delayed 81 mg PO DAILY 09/19/24 09/19/24 Unknown History release atorvastatin 40 mg tablet 40 mg PO BEDTIME 09/19/24 09/19/24 Unknown History baclofen 10 mg tablet 10 mg PO TID 09/19/24 09/19/24 Unknown History bisacodyl 10 mg rectal suppository 10 mg NM Q8H PRN Constipation 09/19/24 09/19/24 Unknown History budesonide 0.5 mg/2 mL suspension 0.5 mg inhalation BID 09/19/24 09/19/24 Unknown History for nebulization calcium polycarbophil 625 mg tablet 625 mg PO BID 09/19/24 09/19/24 Unknown History coenzyme Q10 100 mg tablet 100 mg PO DAILY 09/19/24 09/19/24 Unknown History diclofenac sodium 1 % topical gel 1 g topical QID 09/19/24 09/19/24 Unknown History dronabinol 5 mg capsule 5 mg PO DAILY 09/19/24 09/19/24 Unknown History gabapentin 100 mg capsule 100 mg PO BID 09/19/24 09/19/24 Unknown History lidocaine 4 % topical patch 1 patch topical Q8H PRN Pain 09/19/24 09/19/24 Unknown History magnesium hydroxide 400 mg/5 mL 30 ml PO Q8H PRN Laxatives 09/19/24 09/19/24 Unknown History oral suspension (Milk of [employer]) mometasone-formoterol HFA 200 2 puff inhalation BID 09/19/24 09/19/24 Unknown History mcg-5 mcg/actuation aerosol inhaler (Dulera) ondansetron 4 mg disintegrating 4 mg PO Q8H PRN Nausea And Vomiting 09/19/24 09/19/24 Unknown History tablet oxybutynin chloride 5 mg tablet 10 mg PO DAILY 09/19/24 09/19/24 Unknown History quetiapine 25 mg tablet 25 mg PO BEDTIME 09/19/24 09/19/24 Unknown History sodium phosphates 19 gram-7 133 ml NM Q8H PRN Laxatives 09/19/24 09/19/24 Unknown History gram/118 mL enema (Fleet Enema) Physical Exam Vital Signs: Vital Signs: Last Vital Signs Temp 97.6 F 09/20/24 11:52 Pulse 82 09/20/24 11:52 Resp 17 09/20/24 11:52 BP 96/56 L 09/20/24 11:52 Pulse Ox 97 09/20/24 11:52 O2 Del Method Room Air 09/20/24 11:52 BMI result Body Mass Index 29.2 Skin: Other: Very drowsy not arousable with verbal command and minimally responsive to pain. No obvious facial movements or twitches. No nystagmus or eye deviation. Exam is limited. Plantars were flat. No abnormal body posturing. Results Labs 09/20/24 05:39 09/19/24 15:25 Labs: Short CBC 09/19/24 09/20/24 Range/Units 14:46 05:39 WBC 12.5 H 10.6 (4.8-10.8) X10*3/uL Hgb 10.4 L 9.8 L (12.0-16.0) g/dl Hct 31.9 L 31.3 L (37.0-47.0) % Plt Count 357 D 306 (160-400) X10*3/uL BMP 09/19/24 15:25 Sodium 141 Potassium 4.5 D Chloride 106 Carbon Dioxide 22 BUN 19 H Creatinine 0.80 Calcium 9.7 Urine 09/19/24 Range/Units 17:36 Urine Color Yellow Urine Appearance Clear Urine pH 5.5 (5.0-9.0) Ur Specific [place] >= 1.030 H (1.005-1.025) Urine Protein Negative (Neg-Trace) mg/dL Urine Glucose (UA) Negative (Negative) mg/dL Head CT revealed evidence of craniotomy and shunting with significant encephalomalacia in posterior part of the brain. There was no sign of bleeding or hydrocephalus. CTA did not reveal any obvious large vessel disease. Assessment and Plan (1) Acute alteration in mental status: Status: Acute 54 years old woman with complex brain syndrome resulting in encephalopathy with multiple neurological and behavioral symptoms. At this time she had sudden change in mental status resulting in garbled speech and now she was not responsive. Differential diagnosis would include infection or sepsis, metabolic toxic encephalopathy from iatrogenic causes, similar problem form an alternate chemical used such as drugs of abuse, or seizure disorder. My recommendation is to hold her medicines and use only if needed and obtain an EEG. In the meantime infection should be ruled out especially sepsis. Procedures Date of Service Date of Service: 09/20/24
[2024-09-20 12:08] LABS: Glucose, Whole Blood 64 mg/dL (60-115)
[2024-09-20 13:51] LABS: Glucose, Whole Blood 64 mg/dL (60-115)
[2024-09-20] MEDS: Dextrose 5 % and Lactated Ring 1,000 ML 100 ML IVCONT (13:53)
--- NOTE | 2024-09-20 13:54 | MHC.SLORD ---
Speech Language Pathology Order Status: Order received for HAIR COLORIST consult. HAIR COLORIST attempted in a.m. & p.m., but unable to evaluate. Patient minimally responsive, not following commands, not opening eyes, and not staying awake. Notified MD & RN. HAIR COLORIST available for call-in over the weekend if still needed. Otherwise consult deferred for Monday.
--- NOTE | 2024-09-20 13:57 | PC.NURSE ---
Pt responding to voice an d light touch. skin Pale, warm dry. Calm at this time. Fluids up for persistent low BGs.
--- NOTE | 2024-09-20 15:25 | HO.PM.IMPN ---
Subjective Subjective Date of Service: 09/20/24 Interval History: Being followed for garbled speech/bilateral ptosis and encephalopathy This morning patient very drowsy, difficult to arouse, moaning, vitals stable with no fevers Later patient became awake, alert in no distress complaining of discomfort under chin and throat, no fevers. Review of Systems All other system reviewed and negative/inconsistent history Physical Exam Vital Signs: Vital Signs: Last Vital Signs Temp 97.6 F 09/20/24 11:52 Pulse 82 09/20/24 11:52 Resp 17 09/20/24 11:52 BP 96/56 L 09/20/24 11:52 Pulse Ox 97 09/20/24 11:52 O2 Del Method Room Air 09/20/24 11:52 BMI result Body Mass Index 29.2 Const: Other: General resting comfortably in no acute distress. Neck no JVD. Oral mucosa moist/uvula midline/no white patches and throat/no lymphadenopathy CVS regular rate rhythm, Respiratory lungs clear to auscultation, no respiratory distress, no wheeze, no rhonchi. Gastrointestinal abdomen soft, non tender, bowel sounds audible Extremities no edema. 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 Skin no rash Extremities right foot externally rotated Objective Data Active Medications Acetaminophen (Acetaminophen 325 Mg Tablet) 650 mg PO Q6H PRN PRN Reason: Pain, Mild (Pain Scale 1-3), fever or headache Albuterol Sulfate (Albuterol Sulfate (0.083%) 2.5 Mg/3 Ml Vial.Neb) 2.5 mg INHALE Q6H PRN PRN Reason: Shortness Of Breath Or Wheezing Amantadine HCl (Amantadine Hcl 100 Mg Capsule) 100 mg PO BID [facility] Last Admin: 09/20/24 00:01 Dose: 100 mg Documented By: SHAYNE Aspirin (Aspirin Enteric Coated 81 Mg Tablet.) 81 mg PO DAILY [facility] Atorvastatin Calcium (Atorvastatin Calcium 40 Mg Tablet) 40 mg PO BEDTIME [facility] Last Admin: 09/20/24 00:00 Dose: 40 mg Documented By: SHAYNE Bisacodyl (Bisacodyl 10 Mg Supp.Rect) 10 mg HI Q8H PRN PRN Reason: Constipation Budesonide (Budesonide 0.5 Mg/2 Ml Ampul.Neb) 0.5 mg INHALE BID [facility] Last Admin: 09/20/24 08:01 Dose: 0.5 mg Documented By: SINDI Calcium Carbonate (Calcium Carbonate 750 Mg Tab.Chew) 750 mg PO Q4H PRN PRN Reason: Heartburn Ceftriaxone Sodium (Ceftriaxone Sodium 1 Gm Vial) 1 gm IVPUSH Q24H [facility] Last Admin: 09/19/24 19:40 Dose: 1 gm Documented By: SHAYNE Docusate Sodium (Docusate Sodium 100 Mg Capsule) 100 mg PO DAILY [facility] Enoxaparin Sodium (Enoxaparin Sodium 40 Mg/0.4 Ml Syringe) 40 mg SUBCUT Q24H [facility] Last Admin: 09/19/24 19:40 Dose: 40 mg Documented By: SHAYNE Fluticasone/Vilanterol (Fluticasone/Vilanterol 200/25 Blst.W.Dev) 1 puff INHALE RDAILY [facility] Last Admin: 09/20/24 11:24 Dose: Not Given Documented By: SINDI Non-Admin Reason: See Note Dextrose/Lactated Ringer's (D5lr) 1,000 mls @ 100 mls/hr IVCONT .Q10H [facility] Last Admin: 09/20/24 13:53 Dose: 100 mls/hr Documented By: ANGEL Lamotrigine (Lamotrigine 100 Mg Tablet) 100 mg PO BID [facility] Last Admin: 09/20/24 00:03 Dose: 100 mg Documented By: SHAYNE Magnesium Hydroxide (Milk Of Magnesia 30 Ml Oral.Susp) 30 ml PO DAILY PRN PRN Reason: Constipation Melatonin (Melatonin 3 Mg Tablet) 6 mg PO BEDTIME PRN PRN Reason: Insomnia Melatonin (Melatonin 3 Mg Tablet) 3 mg PO BEDTIME [facility] Last Admin: 09/20/24 00:01 Dose: 3 mg Documented By: SHAYNE Ondansetron HCl (Ondansetron Hcl 4 Mg/2 Ml Vial) 4 mg IVPUSH Q8H PRN PRN Reason: Nausea and Vomiting Oxybutynin Chloride (Oxybutynin Chloride 5 Mg Tablet) 10 mg PO DAILY [facility] Polyethylene Glycol (Polyethylene Glycol 3350 17 Gm Powd.Pack) 17 gm PO DAILY [facility] Sodium Biphosphate/Sodium Phosphate (Sodium Phosphate,[place]-Dibasic 133 Ml Enema) 133 ml HI Q8H PRN PRN Reason: Laxatives Sodium Chloride (0.9 % Sodium Chloride Flush 3 Ml Syringe) 3 ml IVFLUSH QSHIFT [facility] Last Admin: 09/20/24 00:05 Dose: 3 ml Documented By: SHAYNE Labs 09/20/24 05:39 09/19/24 15:25 Labs: Laboratory Results - last 24 hr 09/19/24 09/19/24 09/20/24 15:25 17:36 05:39 MCV 93.2 MCH 29.2 MCHC 31.3 RDW 15.0 Plt Count 306 MPV 8.7 L Absolute Nucleated RBC 0.000 Nucleated RBC % (auto) 0.0 Anion Gap 18 Estim Creat Clear Calc 79.6 Estimated GFR > 60 POC Glucose Random Glucose 93 Calcium 9.7 Triglycerides 66 Cholesterol 88 LDL Cholesterol, Calc 36 HDL Cholesterol 39 L Urine Color Yellow Urine Appearance Clear Urine pH 5.5 Ur Specific [place] >= 1.030 H Urine Protein Negative Urine Glucose (UA) Negative Urine Ketones Negative Urine Blood Negative Urine Nitrite Positive H Ur Leukocyte Esterase Negative Urine RBC 0-2 Urine WBC 6-10 H Ur Squamous Epith Cells 3-5 Urine Bacteria 3+ Hyaline Casts 0-2 Urine Opiates Screen Not Detected Ur Buprenorphine Scrn Not Detected Ur Oxycodone Screen Not Detected Urine Methadone Screen Not Detected Urine Fentanyl Screen Not Detected Ur Barbiturates Screen Not Detected Ur Phencyclidine Scrn Not Detected Ur Amphetamines Screen Not Detected U Benzodiazepines Scrn Not Detected Urine Cocaine Screen Not Detected U Marijuana (THC) Screen POSITIVE H Ethyl Alcohol < 10 09/20/24 09/20/24 09/20/24 07:36 12:05 13:48 MCV MCH MCHC RDW Plt Count MPV Absolute Nucleated RBC Nucleated RBC % (auto) Anion Gap Estim Creat Clear Calc Estimated GFR POC Glucose 75 64 64 Random Glucose Calcium Triglycerides Cholesterol LDL Cholesterol, Calc HDL Cholesterol Urine Color Urine Appearance Urine pH Ur Specific [place] Urine Protein Urine Glucose (UA) Urine Ketones Urine Blood Urine Nitrite Ur Leukocyte Esterase Urine RBC Urine WBC Ur Squamous Epith Cells Urine Bacteria Hyaline Casts Urine Opiates Screen Ur Buprenorphine Scrn Ur Oxycodone Screen Urine Methadone Screen Urine Fentanyl Screen Ur Barbiturates Screen Ur Phencyclidine Scrn Ur Amphetamines Screen U Benzodiazepines Scrn Urine Cocaine Screen U Marijuana (THC) Screen Ethyl Alcohol Microbiology Microbiology Results: Microbiology 09/19/24 17:36 Urine Culture - Preliminary Urine clean catch - Clean Catch Midstream Gram negative estefania Assessment and Plan (1) Seizure disorder: Status: Acute (2) Chronic static encephalopathy: Status: Acute (3) Acute encephalopathy: Status: Acute (4) UTI (urinary tract infection): Status: Acute Plan 52-year-old female with history of hydrocephalus with bilateral [employer]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 [employer]IST 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, unspecified psychosis, depression / anxiety, conversion disorder /psychogenic nonepileptic pseudoseizures, developmental delay,mild persistent asthma, and chronic constipation presented with garbled speech and left facial droop # acute toxic metabolic encephalopathy with garbled speech/bilateral mild ptosis unknown duration of symptoms, early am unresponsive, minimal response to painful stimuli, moaning , later in the afternoon became awake alert and seems to be at baseline Speech cleared, no pronator drift, unable to do detailed neuro exam due to baseline chronic encephalopathy Treat UTI/continue seizure medications/seizure precautions pt. denies use of marijuana, mother not aware Continue aspirin/statin As per mother on chopped diet and thin liquids. Seen by Neurology at a.m. due to unresponsiveness plan was to do detailed workup to rule out sepsis/sz including an EEG and LP but since patient awake alert and seems to be at baseline with no evidence of severe sepsis will DC LP and cancel EEG no recurrent episodes Encephalopathy likely due to UTI exacerbated by use of marijuana and possible polypharmacy on ivf x 1 liter ID consult # acute UTI Leukocytosis resolved urine culture Gram-negative estefania IV ceftriaxone D2, follow final urine and blood culture # unspecified psychogenic non epileptic seizure disorder continue home medications/seizure precautions. # depression/anxiety / unspecified psychosis/conversion disorder - due to somnolence and episode of unresponsiveness will hold baclofen t.i.d. decrease dose of Abilify to 5 mg , change Seroquel to 25 mg as needed at bedtime, decrease Lamictal 100 mg b.i.d.(home dose 200mg bid) If patient clinically stable and awake at a.m. will place back on home medications likely sedation due to UTI and marijuana use. # mild persistent asthma-no acute exacerbation - continue maintenance medications, albuterol p.r.n. # chronic constipation continue stool softeners DVT prophylaxis-Lovenox full code In my clinical judgment patient requires continued inpatient hospitalization for close clinical follow-up/UTI on iv abx and expert consultation. Quality Stroke Does the patient have a stroke diagnosis?: No VTE Prior VTE?: No VTE Risk Level:: Medical - moderate - high VTE Device Contraindication: Treatment Not Indicated VTE Drug Contraindication: N/A - Med Ordered
[2024-09-20] MEDS: Enoxaparin Sodium 40 MG/0.4 ML SYRINGE SUBCUT (16:43)
[2024-09-20 19:20] LABS: Glucose, Whole Blood 114 mg/dL (60-115)
[2024-09-20] MEDS: Atorvastatin Calcium 40 MG TABLET PO ×2 (22:26)
[2024-09-20] MEDS: cefTRIAXone sodium 1 GM VIAL IVPUSH (22:26)
[2024-09-20] MEDS: ARIPiprazole 5 MG TABLET PO (22:26)
[2024-09-21 04:00] VITALS: BP 98/58; PULSE 81; RESP 14; TEMP 36.7; O2SAT 99
[2024-09-21] MEDS: Budesonide 0.5 MG/2 ML AMPUL.NEB INHALE ×2 (07:47→19:52)
[2024-09-21] MEDS: Fluticasone/Vilanterol 200/25 BLST.W.DEV 1 PUFF INHALE (07:47)
[2024-09-21 07:59] VITALS: BP 94/56; PULSE 71; RESP 20; TEMP 36.3; O2SAT 97
[2024-09-21] MEDS: lamoTRIgine 100 MG TABLET PO ×2 (08:31→21:06)
[2024-09-21] MEDS: polyethylene glycoL 3350 17 GM POWD.PACK PO (08:31)
[2024-09-21] MEDS: oxyBUTYnin chloride 5 MG TABLET 10 MG PO (08:31)
[2024-09-21] MEDS: 0.9 % Sodium Chloride Flush 3 ML SYRINGE IVFLUSH ×3 (08:32→21:07)
[2024-09-21] MEDS: Aspirin Enteric Coated 81 MG TABLET.DR PO (08:32)
[2024-09-21] MEDS: Docusate Sodium 100 MG CAPSULE PO (08:32)
[2024-09-21] MEDS: amantadine HCL 100 MG CAPSULE PO ×2 (08:32→21:06)
--- NOTE | 2024-09-21 11:35 | HO.PM.IMPN ---
Subjective Subjective Date of Service: 09/21/24 Interval History: seen and examined this AM awake and alert NAD unsure what happened yesterday Review of Systems All other system reviewed and negative/inconsistent history Physical Exam Vital Signs: Vital Signs: Last Vital Signs Temp 97.3 F 09/21/24 07:59 Pulse 71 09/21/24 07:59 Resp 20 09/21/24 07:59 BP 94/56 L 09/21/24 07:59 Pulse Ox 97 09/21/24 07:59 O2 Del Method Room Air 09/21/24 07:59 BMI result Body Mass Index 29.0 Const: Other: General resting comfortably in no acute distress. Neck no JVD. Oral mucosa moist/uvula midline/no white patches and throat/no lymphadenopathy CVS regular rate rhythm, Respiratory lungs clear to auscultation, no respiratory distress, no wheeze, no rhonchi. Gastrointestinal abdomen soft, non tender, bowel sounds audible Extremities no edema. 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 Skin no rash Extremities right foot externally rotated Objective Data Active Medications Acetaminophen (Acetaminophen 325 Mg Tablet) 650 mg PO Q6H PRN PRN Reason: Pain, Mild (Pain Scale 1-3), fever or headache Albuterol Sulfate (Albuterol Sulfate (0.083%) 2.5 Mg/3 Ml Vial.Neb) 2.5 mg INHALE Q6H PRN PRN Reason: Shortness Of Breath Or Wheezing Amantadine HCl (Amantadine Hcl 100 Mg Capsule) 100 mg PO BID [facility] Last Admin: 09/21/24 08:32 Dose: 100 mg Documented By: CASEY Aripiprazole (Aripiprazole 5 Mg Tablet) 5 mg PO BEDTIME [facility] Last Admin: 09/20/24 22:26 Dose: 5 mg Documented By: YASRI Aspirin (Aspirin Enteric Coated 81 Mg Tablet.) 81 mg PO DAILY [facility] Last Admin: 09/21/24 08:32 Dose: 81 mg Documented By: CASEY Atorvastatin Calcium (Atorvastatin Calcium 40 Mg Tablet) 40 mg PO BEDTIME [facility] Last Admin: 09/20/24 22:26 Dose: 40 mg Documented By: YASIR Bisacodyl (Bisacodyl 10 Mg Supp.Rect) 10 mg [place] Q8H PRN PRN Reason: Constipation Budesonide (Budesonide 0.5 Mg/2 Ml Ampul.Neb) 0.5 mg INHALE BID [facility] Last Admin: 09/21/24 07:47 Dose: 0.5 mg Documented By: CARITO Calcium Carbonate (Calcium Carbonate 750 Mg Tab.Chew) 750 mg PO Q4H PRN PRN Reason: Heartburn Ceftriaxone Sodium (Ceftriaxone Sodium 1 Gm Vial) 1 gm IVPUSH Q24H [facility] Last Admin: 09/20/24 22:26 Dose: 1 gm Documented By: YASIR Docusate Sodium (Docusate Sodium 100 Mg Capsule) 100 mg PO DAILY [facility] Last Admin: 09/21/24 08:32 Dose: 100 mg Documented By: CASEY Enoxaparin Sodium (Enoxaparin Sodium 40 Mg/0.4 Ml Syringe) 40 mg SUBCUT Q24H [facility] Last Admin: 09/20/24 16:43 Dose: 40 mg Documented By: LYNNETTE Fluticasone/Vilanterol (Fluticasone/Vilanterol 200/25 Blst.W.Dev) 1 puff INHALE RDAILY [facility] Last Admin: 09/21/24 07:47 Dose: 1 puff Documented By: CARITO Lamotrigine (Lamotrigine 100 Mg Tablet) 100 mg PO BID [facility] Last Admin: 09/21/24 08:31 Dose: 100 mg Documented By: CASEY Magnesium Hydroxide (Milk Of Magnesia 30 Ml Oral.Susp) 30 ml PO DAILY PRN PRN Reason: Constipation Melatonin (Melatonin 3 Mg Tablet) 6 mg PO BEDTIME PRN PRN Reason: Insomnia Melatonin (Melatonin 3 Mg Tablet) 3 mg PO BEDTIME [facility] Last Admin: 09/20/24 22:26 Dose: 3 mg Documented By: YASIR Ondansetron HCl (Ondansetron Hcl 4 Mg/2 Ml Vial) 4 mg IVPUSH Q8H PRN PRN Reason: Nausea and Vomiting Oxybutynin Chloride (Oxybutynin Chloride 5 Mg Tablet) 10 mg PO DAILY [facility] Last Admin: 09/21/24 08:31 Dose: 10 mg Documented By: CASEY Polyethylene Glycol (Polyethylene Glycol 3350 17 Gm Powd.Pack) 17 gm PO DAILY [facility] Last Admin: 09/21/24 08:31 Dose: 17 gm Documented By: CASEY Quetiapine Fumarate (Quetiapine Fumarate 25 Mg Tablet) 25 mg PO BEDTIME PRN PRN Reason: insomnia Sodium Biphosphate/Sodium Phosphate (Sodium Phosphate,[place]-Dibasic 133 Ml Enema) 133 ml [place] Q8H PRN PRN Reason: Laxatives Sodium Chloride (0.9 % Sodium Chloride Flush 3 Ml Syringe) 3 ml IVFLUSH QSHIFT [facility] Last Admin: 09/21/24 08:32 Dose: 3 ml Documented By: CASEY Labs 09/20/24 05:39 09/19/24 15:25 Labs: Laboratory Results - last 24 hr 09/20/24 09/20/24 09/20/24 12:05 13:48 19:15 POC Glucose 64 64 114 Microbiology Microbiology Results: Microbiology 09/19/24 17:36 Urine Culture - Final Urine clean catch - Clean Catch Midstream Escherichia coli 09/19/24 19:57 Blood Culture - Preliminary Blood - Venous No growth after 24 hours. 09/19/24 19:57 Blood Culture - Preliminary Blood - Venous No growth after 24 hours. 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 HELPER shunts, unspecified psychosis, depression / anxiety, conversion disorder /psychogenic nonepileptic pseudoseizures, developmental delay,mild persistent asthma, and chronic constipation presented with garbled speech and left facial droop # acute toxic metabolic encephalopathy with garbled speech/bilateral mild ptosis unknown duration of symptoms, On 09/20 the patient had: episode of unresponsiveness with plan for further neurological work up including EEG and possible LP; she cleared on her own and work up was cancelled currently awake and alert episode possibly due to underlying UTI + use of marijuana + possible polypharmacy await ID input, but at this time appears to be stable and unlikely furhter work up #e coli uti, pansensitive rocephin, change to ceftin on discharge # unspecified psychogenic non epileptic seizure disorder continue home medications/seizure precautions. # depression/anxiety / unspecified psychosis/conversion disorder - due to somnolence and episode of unresponsiveness will hold baclofen t.i.d. decrease dose of Abilify to 5 mg , change Seroquel to 25 mg as needed at bedtime, decrease Lamictal 100 mg b.i.d.(home dose 200mg bid) If patient clinically stable and awake at a.m. will place back on home medications likely sedation due to UTI and marijuana use. # mild persistent asthma-no acute exacerbation - continue maintenance medications, albuterol p.r.n. # chronic constipation continue stool softeners DVT prophylaxis-Lovenox full code In my clinical judgment patient requires continued inpatient hospitalization for close clinical follow-up/UTI on iv abx and expert consultation. Quality Stroke Does the patient have a stroke diagnosis?: No VTE Prior VTE?: No VTE Risk Level:: Medical - moderate - high VTE Device Contraindication: Treatment Not Indicated VTE Drug Contraindication: N/A - Med Ordered
[2024-09-21 12:00] VITALS: BP 97/55; PULSE 87; RESP 18; TEMP 36; O2SAT 97
[2024-09-21 16:00] VITALS: BP 108/69; PULSE 95; RESP 18; TEMP 36.9; O2SAT 98
[2024-09-21] MEDS: Enoxaparin Sodium 40 MG/0.4 ML SYRINGE SUBCUT (17:54)
[2024-09-21] MEDS: cefTRIAXone sodium 1 GM VIAL IVPUSH (17:54)
[2024-09-21 20:00] VITALS: BP 105/66; PULSE 85; RESP 14; TEMP 36.2; O2SAT 96; O2SAT 99
[2024-09-21] MEDS: ARIPiprazole 5 MG TABLET PO (21:06)
[2024-09-21] MEDS: Atorvastatin Calcium 40 MG TABLET PO (21:07)
[2024-09-21] MEDS: Melatonin 3 MG TABLET PO (21:07)
--- NOTE | 2024-09-21 23:47 | W.PM.IDCN ---
History of Present Illness Data of Consult Service Date: 09/20/24 Requesting physician: Ritchie Ratliff Primary Care Provider: Unknown Physician HPI Reason for consult: garbled speech ?infection She presents with garbled speech for a day. She has marijuana in urine and denies use. 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 There is no known tick exposure. Review of Systems Review of Systems: Yes all other systems are reviewed and are negative PMFSH Past Medical History Medical History Chronic constipation Overactive bladder Mild persistent asthma Psychogenic nonepileptic seizure Conversion disorder Depression with anxiety Unspecified psychosis Obesity Social History Social History Household Members: Other Household Members Other:: SNF Housing: Other Housing Other:: SNF Alcohol intake: never Patient Tobacco Use Status: Never used Tobacco service: No Current occupational status: disabled Meds Allergies Allergy/AdvReac Type Severity Reaction Status Date / Time levetiracetam [From [facility]] Allergy Unknown UNKNOWN Verified 09/19/24 14:54 Active Medications: Current Medications Acetaminophen (Acetaminophen 325 Mg Tablet) 650 mg PO Q6H PRN PRN Reason: Pain, Mild (Pain Scale 1-3), fever or headache Albuterol Sulfate (Albuterol Sulfate (0.083%) 2.5 Mg/3 Ml Vial.Neb) 2.5 mg INHALE Q6H PRN PRN Reason: Shortness Of Breath Or Wheezing Amantadine HCl (Amantadine Hcl 100 Mg Capsule) 100 mg PO BID [facility] Last Admin: 09/21/24 21:06 Dose: 100 mg Aripiprazole (Aripiprazole 5 Mg Tablet) 5 mg PO BEDTIME [facility] Last Admin: 09/21/24 21:06 Dose: 5 mg Aspirin (Aspirin Enteric Coated 81 Mg Tablet.) 81 mg PO DAILY [facility] Last Admin: 09/21/24 08:32 Dose: 81 mg Atorvastatin Calcium (Atorvastatin Calcium 40 Mg Tablet) 40 mg PO BEDTIME [facility] Last Admin: 09/21/24 21:07 Dose: 40 mg Bisacodyl (Bisacodyl 10 Mg Supp.Rect) 10 mg [place] Q8H PRN PRN Reason: Constipation Budesonide (Budesonide 0.5 Mg/2 Ml Ampul.Neb) 0.5 mg INHALE BID [facility] Last Admin: 09/21/24 19:52 Dose: 0.5 mg Calcium Carbonate (Calcium Carbonate 750 Mg Tab.Chew) 750 mg PO Q4H PRN PRN Reason: Heartburn Ceftriaxone Sodium (Ceftriaxone Sodium 1 Gm Vial) 1 gm IVPUSH Q24H [facility] Last Admin: 09/21/24 17:54 Dose: 1 gm Docusate Sodium (Docusate Sodium 100 Mg Capsule) 100 mg PO DAILY [facility] Last Admin: 09/21/24 08:32 Dose: 100 mg Enoxaparin Sodium (Enoxaparin Sodium 40 Mg/0.4 Ml Syringe) 40 mg SUBCUT Q24H [facility] Last Admin: 09/21/24 17:54 Dose: 40 mg Fluticasone/Vilanterol (Fluticasone/Vilanterol 200/25 Blst.W.Dev) 1 puff INHALE RDAILY [facility] Last Admin: 09/21/24 07:47 Dose: 1 puff Lamotrigine (Lamotrigine 100 Mg Tablet) 100 mg PO BID [facility] Last Admin: 09/21/24 21:06 Dose: 100 mg Magnesium Hydroxide (Milk Of Magnesia 30 Ml Oral.Susp) 30 ml PO DAILY PRN PRN Reason: Constipation Melatonin (Melatonin 3 Mg Tablet) 6 mg PO BEDTIME PRN PRN Reason: Insomnia Melatonin (Melatonin 3 Mg Tablet) 3 mg PO BEDTIME [facility] Last Admin: 09/21/24 21:07 Dose: 3 mg Ondansetron HCl (Ondansetron Hcl 4 Mg/2 Ml Vial) 4 mg IVPUSH Q8H PRN PRN Reason: Nausea and Vomiting Oxybutynin Chloride (Oxybutynin Chloride 5 Mg Tablet) 10 mg PO DAILY [facility] Last Admin: 09/21/24 08:31 Dose: 10 mg Polyethylene Glycol (Polyethylene Glycol 3350 17 Gm Powd.Pack) 17 gm PO DAILY [facility] Last Admin: 09/21/24 08:31 Dose: 17 gm Quetiapine Fumarate (Quetiapine Fumarate 25 Mg Tablet) 25 mg PO BEDTIME PRN PRN Reason: insomnia Sodium Biphosphate/Sodium Phosphate (Sodium Phosphate,[place]-Dibasic 133 Ml Enema) 133 ml [place] Q8H PRN PRN Reason: Laxatives Sodium Chloride (0.9 % Sodium Chloride Flush 3 Ml Syringe) 3 ml IVFLUSH QSHIFT [facility] Last Admin: 09/21/24 21:07 Dose: 3 ml Home Medications ?Medication ?Instructions ?Recorded ?Confirmed ?Last Taken ?Type melatonin 3 mg tablet 3 mg PO BEDTIME 01/21/23 09/19/24 Unknown History docusate sodium 100 mg tablet 100 mg PO DAILY 01/22/23 09/19/24 Unknown History ferrous gluconate 324 mg (37.5 mg 324 mg PO DAILY 01/22/23 09/19/24 Unknown History iron) tablet polyethylene glycol 3350 17 17 g PO DAILY Laxatives 01/22/23 09/19/24 Unknown History gram/dose oral powder (Miralax) citalopram 10 mg tablet 30 mg PO DAILY 02/21/23 09/19/24 Unknown History lamotrigine 150 mg tablet 150 mg PO BID 02/21/23 09/19/24 Unknown History lamotrigine 100 mg tablet 100 mg PO BID 02/22/23 09/19/24 Unknown History acetaminophen 650 mg 650 mg PO Q8H PRN Pain/Elevated 09/19/24 09/19/24 Unknown History tablet,extended release Temp albuterol sulfate 2.5 mg/3 mL 2.5 mg inhalation Q6H PRN 09/19/24 09/19/24 Unknown History (0.083 %) solution for nebulization Shortness Of Breath Or Wheezing amantadine HCl 50 mg/5 mL oral 100 mg PO BID 09/19/24 09/19/24 Unknown History solution aripiprazole 10 mg tablet 10 mg PO DAILY 09/19/24 09/19/24 Unknown History aspirin 81 mg tablet,delayed 81 mg PO DAILY 09/19/24 09/19/24 Unknown History release atorvastatin 40 mg tablet 40 mg PO BEDTIME 09/19/24 09/19/24 Unknown History baclofen 10 mg tablet 10 mg PO TID 09/19/24 09/19/24 Unknown History bisacodyl 10 mg rectal suppository 10 mg [place] Q8H PRN Constipation 09/19/24 09/19/24 Unknown History budesonide 0.5 mg/2 mL suspension 0.5 mg inhalation BID 09/19/24 09/19/24 Unknown History for nebulization calcium polycarbophil 625 mg tablet 625 mg PO BID 09/19/24 09/19/24 Unknown History coenzyme Q10 100 mg tablet 100 mg PO DAILY 09/19/24 09/19/24 Unknown History diclofenac sodium 1 % topical gel 1 g topical QID 09/19/24 09/19/24 Unknown History dronabinol 5 mg capsule 5 mg PO DAILY 09/19/24 09/19/24 Unknown History gabapentin 100 mg capsule 100 mg PO BID 09/19/24 09/19/24 Unknown History lidocaine 4 % topical patch 1 patch topical Q8H PRN Pain 09/19/24 09/19/24 Unknown History magnesium hydroxide 400 mg/5 mL 30 ml PO Q8H PRN Laxatives 09/19/24 09/19/24 Unknown History oral suspension (Milk of MagnCubeSensors) mometasone-formoterol HFA 200 2 puff inhalation BID 09/19/24 09/19/24 Unknown History mcg-5 mcg/actuation aerosol inhaler (Dulera) ondansetron 4 mg disintegrating 4 mg PO Q8H PRN Nausea And Vomiting 09/19/24 09/19/24 Unknown History tablet oxybutynin chloride 5 mg tablet 10 mg PO DAILY 09/19/24 09/19/24 Unknown History quetiapine 25 mg tablet 25 mg PO BEDTIME 09/19/24 09/19/24 Unknown History sodium phosphates 19 gram-7 133 ml [place] Q8H PRN Laxatives 09/19/24 09/19/24 Unknown History gram/118 mL enema (Fleet Enema) Physical Exam Vital Signs: Vital Signs: Last Vital Signs Temp 97.2 F 09/21/24 20:00 Pulse 85 09/21/24 20:00 Resp 14 09/21/24 20:00 BP 105/66 09/21/24 20:00 Pulse Ox 99 09/21/24 20:00 O2 Del Method Room Air 09/21/24 20:00 BMI result Body Mass Index 29.0 Const: General: cooperative HEENT: Head: Yes normal to inspection Face and sinus: Yes normal facial exam Mouth: Normal oral and palatal mucosa present Teeth and gingiva: dentition normal Eyes: General: appearance normal, both eyes and all related structures Pupils: Equal, round and reactive pupils present Resp: Effort & Inspection: normal respiratory effort Cardio: Rate: regular rate Rhythm: regular rhythm GI: Palpation (GI): Soft to palpation and nontender : General: Yes no CVA tenderness Back/Spine/Pelvis: Back: no CVA tenderness Skin: General skin exam: no rashes or lesions noted Neuro: General: moves all extremities Cranial nerves: Yes Equal, round and reactive pupils present Extrem: General: Yes normal to inspection Psych: Appearance: grossly normal Results Labs 09/20/24 05:39 09/19/24 15:25 Microbiology Microbiology Results: Microbiology 09/19/24 19:57 Blood - Venous Blood Culture - Preliminary No growth after 48 hours. 09/19/24 19:57 Blood - Venous Blood Culture - Preliminary No growth after 48 hours. 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 Possible illicit marijuana use. Not likely but possible Lyme disease. Continue Ceftriaxone IV and then po for total of 7 d
[2024-09-22 00:39] VITALS: BP 101/60; PULSE 82; RESP 14; TEMP 36.2; O2SAT 94
[2024-09-22 04:00] VITALS: BP 92/55; PULSE 81; RESP 14; TEMP 36.1; O2SAT 97
[2024-09-22] MEDS: Fluticasone/Vilanterol 200/25 BLST.W.DEV 1 PUFF INHALE (07:25)
[2024-09-22] MEDS: Budesonide 0.5 MG/2 ML AMPUL.NEB INHALE (07:25)
[2024-09-22 07:26] VITALS: PULSE 81; RESP 16; O2SAT 97
[2024-09-22 07:50] VITALS: BP 117/69; PULSE 79; RESP 17; TEMP 36.2; O2SAT 97
[2024-09-22] MEDS: 0.9 % Sodium Chloride Flush 3 ML SYRINGE IVFLUSH (07:59)
[2024-09-22] MEDS: Aspirin Enteric Coated 81 MG TABLET.DR PO (08:00)
[2024-09-22] MEDS: lamoTRIgine 100 MG TABLET PO (08:00)
[2024-09-22] MEDS: polyethylene glycoL 3350 17 GM POWD.PACK PO (08:00)
[2024-09-22] MEDS: Docusate Sodium 100 MG CAPSULE PO (08:00)
[2024-09-22] MEDS: amantadine HCL 100 MG CAPSULE PO (08:00)
[2024-09-22] MEDS: oxyBUTYnin chloride 5 MG TABLET 10 MG PO (08:00)
--- NOTE | 2024-09-22 10:37 | MHC.CM.PN ---
Pt is medically cleared for discharge back to [facility] at [facility] today, she will transport there via BLS/Sara. Pts mother Tavia was called and notified of discharge by this CM.
--- NOTE | 2024-09-22 10:37 | PM.DS ---
DS: Providers Provider Date of Service: 09/22/24 Date of admission: 09/19/24 17:03 Primary care physician: Unknown Physician Consults: 09/19/24 14:14 Consult to Neurology Routine Consulting Provider: [facility] Reason for consultation: acute garbled speech 09/19/24 18:52 Consult to Neurology Routine Consulting Provider: Neurology Vineet pacheco [facility] Reason for consultation: Garbled speech Has provider been notified: No 09/20/24 14:38 Consult to Infectious Diseases Routine Consulting Provider: [facility] Reason for consultation: uti/r/o other infection Has provider been notified: No DS: Diagnosis Discharge Diagnosis (1) Toxic metabolic encephalopathy: Status: Acute (2) UTI (urinary tract infection): Status: Acute (3) Seizure disorder: Status: Acute DS: Summary Hospital Course Hospital Course: HPI From admission H&P: 54-year-old female patient with 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 and noted patient to have garbled speech and droopy eyes, otherwise noted no other issues, at present patient denies headache, no weakness, no numbness, inconsistent history with baseline chronic encephalopathy, workup in ED showed CT head with no acute intracranial pathology, ventriculostomy drains in place, no hydrocephalus, head and neck CTA showed no occlusion, chest x-ray unremarkable, speech has cleared, UA showed 3+ bacteria positive nitrate and 6-10 WBC, urine toxicology positive for marijuana, WBC 12.5, hematocrit 31.9 and hemoglobin 10.4, with baseline hematocrit, normal electrolytes, LDL 36, total cholesterol 88, patient denies use of marijuana. Patient will be admitted to [facility] due to garbled speech, likely UTI and expert consultation, patient is wheelchair-bound for last 6 months Hospital Course: Patient was admitted for urinary tract infection and was started on intravenous ceftriaxone. Her urine culture grew pansensitive E coli and she will be transitioned to 4 more days of cefuroxime to complete a 7 day course of antibiotics. The patient's hospital course was complicated by acute toxic/metabolic encephalopathy. There was concern for neurological infection and the initial plan was for further workup including LP. However the patient's symptoms resolved without any intervention or workup. She was evaluated by Neurology and Infectious Disease as well. Her symptoms were felt to be secondary to her medications and hence the following adjustments are made. Her baclofen was held and will be discharged on 5 mg t.i.d., have her baseline dose. Her scheduled Seroquel 25 mg at baseline has been changed to p.r.n. for insomnia. Her Abilify has been decreased from 10 mg to 5 mg. These may require further changes based on her clinical course. The remainder of patient's chronic conditions remained stable in the hospital. Final discharge diagnosis 1. Urinary tract infection with E coli 2. Acute toxic/metabolic encephalopathy 3. Unspecified psychogenic nonepileptic seizure disorder 4. Depression/anxiety/unspecified psychosis/conversion disorder 5. Mild persistent asthma 6. Chronic constipation Time Attestation Discharge Coordination Time (in mins): 40 Quality: Safe Use of Opioids Does Pt have an Active Cancer Diagnosis on the Problem List?: No Quality: Stroke Does the patient have a stroke diagnosis?: No Physical Exam Vital Signs: Vital Signs: Last Vital Signs Temp 97.2 F 09/22/24 07:50 Pulse 79 09/22/24 07:50 Resp 17 09/22/24 07:50 BP 117/69 09/22/24 07:50 Pulse Ox 97 09/22/24 07:50 O2 Del Method Room Air 09/22/24 07:50 BMI result Body Mass Index 29.0 Const: Other: General - no acute distress, appears comfortable Cardiovascular - regular rate and rhythm, S1-S2 Lungs - normal respiratory effort, clear to auscultation bilaterally, no wheezing Abdomen - soft, nontender, no rebound or guarding Extremities - no edema bilaterally Neuro - awake and alert DS: Data Data Completed and Pending Labs on day of discharge: Preliminary micro results at discharge 09/19/24 19:57 Blood Culture - Preliminary Blood - Venous No growth after 48 hours. 09/19/24 19:57 Blood Culture - Preliminary Blood - Venous No growth after 48 hours. Discharge Plan Discharge Anticipated Discharge Date/Time: 09/22/24 10:32 Patient Disposition: [facility] Discharge Diagnosis: toxic/metabolic encephalopathy, UTI Referrals: [facility] [Outside] - 1 Week Physician,Unknown J [Primary Care Provider] - 1 Week Discharge Medications: New cefuroxime axetil 250 mg tablet 250 mg PO BID Qty: 8 0RF Continued lamotrigine 150 mg tablet 150 mg PO BID citalopram 10 mg tablet 30 mg PO DAILY lamotrigine 100 mg tablet 100 mg PO BID cetirizine 10 mg tablet 10 mg PO DAILY PRN (Reason: allergy symptoms) Qty: 14 0RF melatonin 3 mg tablet 3 mg PO BEDTIME polyethylene glycol 3350 [Miralax] 17 gram/dose Powder 17 g PO DAILY docusate sodium 100 mg Tablet 100 mg PO DAILY ferrous gluconate 324 mg (37.5 mg iron) Tablet 324 mg PO DAILY amantadine HCl 50 mg/5 mL Solution 100 mg PO BID atorvastatin 40 mg Tablet 40 mg PO BEDTIME lidocaine 4 % Adhesive Patch,Medicated 1 patch TOPICAL Q8H PRN (Reason: Pain) albuterol sulfate 2.5 mg /3 mL (0.083 %) Solution For Nebulization 2.5 mg INHALATION Q6H PRN (Reason: Shortness Of Breath Or Wheezing) dronabinol 5 mg Capsule 5 mg PO DAILY aspirin 81 mg Tablet,Delayed Release (Dr/Ec) 81 mg PO DAILY acetaminophen 650 mg Tablet Extended Release 650 mg PO Q8H PRN (Reason: Pain/Elevated Temp) magnesium hydroxide [Milk of Magnesia] 400 mg/5 mL Suspension 30 ml PO Q8H PRN (Reason: Laxatives) bisacodyl 10 mg Suppository 10 mg [place] Q8H PRN (Reason: Constipation) Fleet Enema 19-7 gram/118 mL Enema 133 ml [place] Q8H PRN (Reason: Laxatives) budesonide 0.5 mg/2 mL Suspension For Nebulization 0.5 mg INHALATION BID gabapentin 100 mg Capsule 100 mg PO BID oxybutynin chloride 5 mg Tablet 10 mg PO DAILY ondansetron 4 mg Tablet,Disintegrating 4 mg PO Q8H PRN (Reason: Nausea And Vomiting) diclofenac sodium 1 % Gel 1 g TOPICAL QID Dulera 200-5 mcg/actuation Hfa Aerosol Inhaler 2 puff INHALATION BID coenzyme Q10 100 mg Tablet 100 mg PO DAILY calcium polycarbophil 625 mg Tablet 625 mg PO BID Changed quetiapine 25 mg Tablet 25 mg PO BEDTIME PRN (Reason: insomnia) Qty: 30 0RF baclofen 10 mg Tablet 5 mg PO TID Qty: 90 0RF aripiprazole 10 mg Tablet 5 mg PO DAILY Qty: 30 0RF Discharge Orders: Discharge Order (Routine); Ordered 09/22/24 Ordered By: Alberto [place] Diet: Advance to usual diet Activity on Discharge: As tolerated Stand Alone Forms: Patient Portal Discharge page Print Language: Cook Islander Care Plan Goals: To stay healthy and out of the hospital. Health Concerns: See d/c summary Plan of Treatment: See d/c summary Assessment: See d/c summary
[2024-09-22 11:59] VITALS: BP 113/61; PULSE 90; RESP 17; TEMP 36.1; O2SAT 97
== END 2024-09-22 13:20 | disposition skilled nursing facility (03) | DRG 689 ==
LOC: HO.ED 15:53 → HO.EDOVER 17:38 → HO.IMC 09-20 14:04
PROVIDERS: Student in an Organized Health Care Education/Training Program; Admitting Provider Hospitalist; Emergency Provider Emergency Medicine; PCP Family Medicine; Visit Provider Family Medicine
DX: N39.0 Urinary tract infection, site not specified (principal); G92.8 Other toxic encephalopathy; G91.9 Hydrocephalus, unspecified; G93.49 Other encephalopathy; B96.20 Unspecified Escherichia coli [E. coli] as the cause of diseases classified elsewhere; F41.9 Anxiety disorder, unspecified; F32.A Depression, unspecified; F44.4 Conversion disorder with motor symptom or deficit; R62.50 Unspecified lack of expected normal physiological development in childhood; T50.995A Adverse effect of other drugs, medicaments and biological substances, initial encounter; Z99.3 Dependence on wheelchair; J45.30 Mild persistent asthma, uncomplicated; K59.09 Other constipation; Z98.2 Presence of cerebrospinal fluid drainage device; Z79.82 Long term (current) use of aspirin; Z79.899 Other long term (current) drug therapy
CPT/HCPCS: 36415; 70450; 70496; 70498; 71045; 80048; 80061; 80307; 81001; 82947; 84484; 85025; 85027; 85610; 85730; 87040; 87086; 87088; 87186; 93005; 99285; J0696; J1650; Q9967

== ENCOUNTER → 2024-09-19 14:15 | Outpatient (BNV) | payer MEDICARE, MEDICAID, SELFPAY | PROVIDERS: Emergency Provider Emergency Medicine; Visit Provider Radiology Diagnostic Radiology | DX: I63.9 Cerebral infarction, unspecified (principal) | CPT/HCPCS: 71045 ==

== ENCOUNTER → 2024-09-19 14:15 | Outpatient (BNV) | payer MEDICARE, MEDICAID, SELFPAY | PROVIDERS: Admitting Provider Hospitalist; Emergency Provider Emergency Medicine; Visit Provider Internal Medicine Cardiovascular Disease | DX: I63.9 Cerebral infarction, unspecified (principal) | CPT/HCPCS: 93010 ==

== ENCOUNTER → 2024-09-19 17:03 | Outpatient (BNV) | payer MEDICARE, MEDICAID, SELFPAY | PROVIDERS: Admitting Provider Hospitalist; Emergency Provider Emergency Medicine; Visit Provider Psychiatry & Neurology Neurology | DX: R41.82 Altered mental status, unspecified (principal) | CPT/HCPCS: 99222 ==

== ENCOUNTER → 2024-09-19 17:03 | Outpatient (BNV) | payer MEDICARE, MEDICAID, SELFPAY | PROVIDERS: Admitting Provider Hospitalist; Emergency Provider Emergency Medicine; Visit Provider Hospitalist | DX: G93.41 Metabolic encephalopathy (principal); F44.5 Conversion disorder with seizures or convulsions; N39.0 Urinary tract infection, site not specified | CPT/HCPCS: 99223; 99232; 99233; 99239 ==

== ENCOUNTER → 2024-09-19 17:03 | Outpatient (BNV) | payer MEDICARE, MEDICAID, SELFPAY | PROVIDERS: Admitting Provider Hospitalist; Emergency Provider Emergency Medicine; Visit Provider Internal Medicine | DX: G93.40 Encephalopathy, unspecified (principal); R41.82 Altered mental status, unspecified; F07.9 Unspecified personality and behavioral disorder due to known physiological condition | CPT/HCPCS: 99222 ==